=== PATIENT | female | born 1955 | race Caucasian/White ===

== ENCOUNTER 2019-12-27 10:05 | Emergency (ER) | payer OTHER ==
[~2019-12-27] VITALS: Ht 162.6 cm; Wt 68.0 kg
[~2019-12-27 10:05] MED LIST: INSU10SU6 SUBQ; NITR0.4T2 SL
--- NOTE | 2019-12-27 10:05 | NUR ---
Patient BIBA ALS, transferred to bed 8. RN evaluating patient at bedside.
[2019-12-27 10:09] VITALS: BP 180/83
--- NOTE | 2019-12-27 10:15 | NUR ---
BIBA FROM HOME DUE TO HYPOGLYCEMIA, PT WOKE UP AND FAINTED THIS MORNING. TOOK INSULIN LAST NIGHT. HAS NOT HAD BREAKFAST. BS OF 49 AT HOME. PER EMS GLUCOGON GIVEN IM AND IV FLUIDS DEXTROSE. BS 118 IN ER. PT A/OX4, AMBULATORY. PT REPORTS HIT HER OCCIPITAL AREA ON THE HEAD WHEN SHE FELL OFF THE BED THIS MORNING, DENIES LOC. DENIES DIZZINESS, BLURRY VISION, WEAKNESS, ANY PAIN AT THIS TIME.
[2019-12-27] MEDS ORDERED: lisinopriL 20 MG TAB PO ONE (10:35)
[2019-12-27] MEDS ORDERED: ASPIRIN 81 MG TAB.CHEW PO ONE (10:35)
[2019-12-27] MEDS ORDERED: FUROSEMIDE 20 MG TAB PO ONE (10:35)
--- NOTE | 2019-12-27 10:44 | NUR ---
Dr. De La Cruz is evaluating the patient at bedside.
--- NOTE | 2019-12-27 10:50 | NUR ---
FOOD AND JUICE PROVIDED TO PATIENT TO BEDSIDE.
--- NOTE | 2019-12-27 11:09 | NUR ---
Spoke with pt's son Miguelito at [phone]. Will contact him later when patient is discharged from ER.
--- NOTE | 2019-12-27 11:15 | NUR ---
Patient ambulated to the bathroom with steady gait.
[2019-12-27 12:54] VITALS: BP 148/78
--- NOTE | 2019-12-27 12:54 | NUR ---
Patient discharged with v/s stable. Written and verbal after care instructions given and explained. Patient verbalized understanding. Ambulatory with steady gait. All questions addressed prior to discharge. Advised to follow up with PMD.
== END 2019-12-27 12:54 | disposition home or self-care (01) ==
LOC: MED 10:05
DX: E16.0 Drug-induced hypoglycemia without coma (principal); T38.3X5A Adverse effect of insulin and oral hypoglycemic [antidiabetic] drugs, initial encounter; Y92.89 Other specified places as the place of occurrence of the external cause
CPT/HCPCS: 99284

== ENCOUNTER 2020-04-15 09:08 | Emergency (ER) | payer OTHER ==
[~2020-04-15] VITALS: Ht 152.4 cm; Wt 76.7 kg
[2020-04-15 09:08] VITALS: BP 197/97
--- NOTE | 2020-04-15 09:15 | NUR ---
Pt biba from home due to hypoglycemia. Per EMS, reported blood sugar this morning taken by her daughter was 41. EMS arrived and took bs of 31. Glucagon 1mg IM given, which raised bs to 74. In the ER, patient was awake and alert, confused, GCS 14. VSS. ER resting in bed comfortably. ERMD made aware of pt status. hx: DM, HTN, HYPERLIPIDEMIA, CHF
[2020-04-15] MEDS ORDERED: DEXTROSE 10% 250 ML IV SCH (09:25)
--- NOTE | 2020-04-15 09:42 | NUR ---
PT REFUSED OXYGEN VIA NC. O2 SAT= 97%. ERMD MADE AWARE.
[2020-04-15 09:47] LABS: BASOPHILS % (AUTO) 0.2 % (0.0-2.0); EOSINOPHILS # (AUTO) 0.4 K/uL (0-0.4); EOSINOPHILS % (AUTO) 5.5 % (0.0-4.0); HEMATOCRIT 39.7 % (36-48); HEMOGLOBIN 13.1 g/dL (12.0-16.0); LYMPHOCYTES # (AUTO) 1.5 K/uL (2.5-16.5); LYMPHOCYTES % (AUTO) 21.2 % (20.5-51.1); MEAN CORPUSCULAR HEMOGLOBIN 30 pg (27-31); MEAN CORPUSCULAR HGB CONC 33 g/dL (33-37); MEAN CORPUSCULAR VOLUME 91.7 fL (80-94); MONOCYTES # (AUTO) 0.4 K/uL (0.8-1.0); MONOCYTES % (AUTO) 5.9 % (1.7-9.3); NEUTROPHILS # (AUTO) 4.8 K/uL (1.8-7.7); NEUTROPHILS % (AUTO) 67.2 % (42.2-75.2); PLATELET COUNT (AUTO) 218 K/uL (140-450); RED BLOOD CELL COUNT(AUTO) 4.33 MIL/uL (4.20-5.40); WHITE BLOOD COUNT (AUTO) 7.1 K/uL (4.8-10.8)
[2020-04-15 10:04] LABS: ALBUMIN 3.2 g/dL (3.4-5.0); ANION GAP 11.9 (8-16); CARBON DIOXIDE 28.1 mmol/L (21-32); CREATININE 0.7 mg/dL (0.6-1.3); TOTAL BILIRUBIN 0.4 mg/dL (0.0-1.0)
[2020-04-15 10:17] LABS: APPEARANCE,URINE HAZY (CLEAR); BILIRUBIN,URINE NEGATIVE (NEGATIVE); BLOOD, URINE TRACE-I (NEGATIVE); COLOR,URINE YELLOW (YELLOW); LEUKOCYTE ESTERASE ,URINE NEGATIVE (NEGATIVE); NITRITE, URINE POSITIVE (NEGATIVE); UGLUCOSE NEGATIVE (NEGATIVE)
[2020-04-15 10:33] LABS: RBC,URINE 0-5 /HPF (0-5); WBC,URINE 0-5 /HPF (0-5)
[2020-04-15] MEDS ORDERED: cephALEXin 500 MG CAP PO ONE (10:45)
[2020-04-15 11:00] VITALS: BP 159/57
== END 2020-04-15 11:01 | disposition home or self-care (01) ==
LOC: MED 09:08
DX: E16.2 Hypoglycemia, unspecified (principal); R53.83 Other fatigue; N39.0 Urinary tract infection, site not specified; E11.9 Type 2 diabetes mellitus without complications; I10 Essential (primary) hypertension; J45.909 Unspecified asthma, uncomplicated; Z79.899 Other long term (current) drug therapy
CPT/HCPCS: 36415; 71045; 80053; 81001; 84484; 85025; 87086; 93005; 96360; 96365; 99285

== ENCOUNTER 2020-08-02 23:01 | Inpatient (IN) | payer OTHER, SELFPAY ==
[~2020-08-02] VITALS: Ht 152.4 cm; Wt 81.6 kg
[2020-08-02 23:03] VITALS: BP 138/69
--- NOTE | 2020-08-02 23:03 | NUR ---
HERMINIO SCHWARTZ TAKEN TO BED #2
--- NOTE | 2020-08-02 23:05 | NUR ---
PATIENT PRESENTS TO EDM BIBA ALS WIT C/O RIGHT LEGPAIN, LETHARGY AND NEAR SYNCOPE . DENIES N/V/D; SKIN IS PINK/WARM/DRY; AAOX4 APPEARS TIRED; LUNGS CLEAR BL; HR EVEN AND REGULAR; PT DENIES ANY FEVER, CP, SOB, OR COUGH AT THIS TIME. VSS; PATIENT POSITIONED FOR COMFORT; HOB ELEVATED; BEDRAILS UP X2; BED DOWN. DR. VUONG BEDSIDE FOR EXAM
[2020-08-02] MEDS ORDERED: NACL 0.9% 1,000 ML IV ONE (23:25)
[2020-08-02] MEDS ORDERED: ONDANSETRON 4 MG/2 ML VIAL IVP ONE (23:25)
[2020-08-02] MEDS ORDERED: MORPHINE SULFATE 2 MG/ML SYR IVP ONE (23:25)
[2020-08-02 23:58] LABS: BASOPHILS % (AUTO) 0.4 % (0.0-2.0); EOSINOPHILS # (AUTO) 0.1 K/uL (0-0.4); EOSINOPHILS % (AUTO) 1.6 % (0.0-4.0); HEMATOCRIT 36.7 % (36-48); HEMOGLOBIN 12.1 g/dL (12.0-16.0); LYMPHOCYTES # (AUTO) 1.2 K/uL (2.5-16.5); LYMPHOCYTES % (AUTO) 13.1 % (20.5-51.1); MEAN CORPUSCULAR HEMOGLOBIN 30 pg (27-31); MEAN CORPUSCULAR HGB CONC 33 g/dL (33-37); MEAN CORPUSCULAR VOLUME 89.4 fL (80-94); MONOCYTES # (AUTO) 0.7 K/uL (0.8-1.0); MONOCYTES % (AUTO) 7.6 % (1.7-9.3); NEUTROPHILS # (AUTO) 6.9 K/uL (1.8-7.7); NEUTROPHILS % (AUTO) 77.3 % (42.2-75.2); PLATELET COUNT (AUTO) 215 K/uL (140-450); RED BLOOD CELL COUNT(AUTO) 4.11 MIL/uL (4.20-5.40); RED CELL DISTRIBUTION WIDTH 13.7 % (11.6-13.7); WHITE BLOOD COUNT (AUTO) 8.9 K/uL (4.8-10.8)
--- NOTE | 2020-08-02 23:59 | NUR ---
LABS, EKG, ABG DONE. PT IS C/O RIGHT LOWER EXTREMITY PAIN.PT STATES HAS HX OF NEUROPATHY
[2020-08-03 00:16] LABS: C-REACTIVE PROTEIN QUANT 6.5 mg/dL (0.0-0.9)
[2020-08-03 00:20] LABS: FIBRINOGEN 344 mg/dL (200-400)
[2020-08-03 00:21] LABS: ALBUMIN 2.8 g/dL (3.4-5.0); ANION GAP 12.1 (8-16); CARBON DIOXIDE 28.3 mmol/L (21-32); CREATININE 0.8 mg/dL (0.6-1.3); POTASSIUM 3.4 mmol/L (3.5-5.1); TOTAL BILIRUBIN 0.4 mg/dL (0.0-1.0)
[2020-08-03 00:24] LABS: D-DIMER 814 ng/ml (0-400)
[2020-08-03] MEDS ORDERED: MORPHINE SULFATE 2 MG/ML SYR ONE (00:37)
[2020-08-03] MEDS ORDERED: ONDANSETRON 4 MG/2 ML VIAL ONE (00:38)
--- NOTE | 2020-08-03 04:00 | NUR ---
REMAINS UNABLE TO VOID. HAS BEEN DOZING OFF AND ON WITH EYES CLOSED. IS TO BE ADMITTED AWAITING ROOM ASSIGNMENT
[2020-08-03] MEDS ORDERED: POTA8TER12 PO (04:15)
[2020-08-03] MEDS ORDERED: LISI-487 PO (04:15)
[2020-08-03] MEDS ORDERED: PANT40EC PO (04:15)
[2020-08-03] MEDS ORDERED: SIMV20TA1 PO (04:15)
[2020-08-03] MEDS ORDERED: FURO-572 PO (04:15)
[2020-08-03] MEDS ORDERED: METF1000 PO (04:15)
[2020-08-03] MEDS ORDERED: NACL 0.9% 1,000 ML IV SCH (05:05)
--- NOTE | 2020-08-03 05:30 | NUR ---
RECEIVED REPORT FROM ER NURSE MATTHEW. PT ARRIVED VIA GURNEY, AMBULATED TO BED WITH STANDBY ASSIST, HAS PAIN ON BLE, MORE ON RIGHT LEG. ON TELE, AOX3 ON 2L NC. NO S/S RESPIRATORY DISTRESS. IV SITE LAC 18G PATENT INTACT. ORIENTED PT TO ROOM AND HOSPITAL. SAFETY MEASURES IN PLACE. CALL LIGHT WITHIN REACH. WILL CONTINUE TO MONITOR, DX: ACUTE RESP. FAILURE, HYPOXIA, HX: DM, HTN, ASTHMA. VS: TEMP 97.8 HR 72 02 SAT 99% BP 148/69 RR 18, MRSA AND URINE COLLECTED
--- NOTE | 2020-08-03 05:30 | NUR ---
REPORT CALLED TO RENATE GROVE
--- NOTE | 2020-08-03 05:40 | NUR ---
TO 215A VIA [employer], ATTACHED TO TRANSPORT MONITOR Belongings list completed.
--- NOTE | 2020-08-03 07:24 | NUR ---
ENDORSED PT TO DAY RN FOR CONTINUITY OF CARE. PT IS IN STABLE CONDITION
--- NOTE | 2020-08-03 07:25 | NUR ---
PT RECEIVED FROM NIGHT NURSE FOR CONTINUITY OF CARE. PT HAS NO S/S OF DISTRESS. IV ON LEFT FORE ARM IS CLEAR PATENT AND INTACT. CALL LIGHT IS WITHIN REACH. ALL SAFETY MEASURES ARE IN PLACE. WILL CONTINUE TO MONITOR.
[2020-08-03] MEDS: NACL 0.9% 1,000 ML IV SCH (07:30)
[2020-08-03] MEDS ORDERED: POTASSIUM CHLORIDE 10 MEQ TABER PO PRN (07:30)
[2020-08-03] MEDS ORDERED: ONDANSETRON 4 MG/2 ML VIAL IM/IVP PRN (07:30)
[2020-08-03] MEDS ORDERED: ZOLPIDEM 5 MG TAB PO PRN (07:30)
[2020-08-03] MEDS ORDERED: NITROGLYCERIN 0.4 MG TAB SL PRN (07:30)
[2020-08-03] MEDS ORDERED: LORazepam 2 MG/ML VIAL IM/IVP PRN (07:30)
[2020-08-03] MEDS ORDERED: DOCUSATE SODIUM 100 MG GELCAP PO PRN (07:30)
[2020-08-03] MEDS ORDERED: ACETAMINOPHEN 325 MG TAB PO PRN (07:30)
[2020-08-03] MEDS ORDERED: HYDROcodone/APAP 5/325 MG 1 TAB TAB PO PRN (07:30)
[2020-08-03] MEDS ORDERED: INSULIN LISPRO SLIDING SCALE 100 UNITS/ML VIAL SUBQ PRN (07:40)
[2020-08-03 08:00] VITALS: BP 144/66
[2020-08-03 08:13] LABS: BILIRUBIN,URINE NEGATIVE (NEGATIVE); BLOOD, URINE TRACE-I (NEGATIVE); COLOR,URINE YELLOW (YELLOW); LEUKOCYTE ESTERASE ,URINE NEGATIVE (NEGATIVE); UGLUCOSE NEGATIVE (NEGATIVE)
[2020-08-03 08:39] LABS: BARBITURATE, URINE NEGATIVE ng/ml (NEG <=200); BENZODIAZEPINE, URINE NEGATIVE ng/mL (NEG <=200); CANNABINOID, URINE NEGATIVE ng/mL (NEG <=50); COCAINE, URINE NEGATIVE ng/mL (NEG <=300); OPIATE, URINE POSITIVE ng/mL (NEG <=2000); PHENCYCLIDINE SCREEN,URINE NEGATIVE ng/mL (NEG <=25)
--- NOTE | 2020-08-03 08:39 | NUR ---
PATIENT HAS BEEN SCREENED AND CATEGORIZED MODERATE NUTRITION RISK. PATIENT WILL BE SEEN WITHIN 3-5 DAYS OF ADMISSION. 08/05/20 08/07/[address]
[2020-08-03 08:50] LABS: APPEARANCE,URINE SLIGHTLY HAZY (CLEAR); NITRITE, URINE POSITIVE (NEGATIVE)
[2020-08-03 08:51] LABS: RBC,URINE 0-5 /HPF (0-5); WBC,URINE 0-5 /HPF (0-5)
--- NOTE | 2020-08-03 09:00 | NUR ---
MEDICATIONS GIVEN PER MD ORDER. PT EDUCATED AND VERBALIZED UNDERSTANDING. NO S/S OF DISTRESS. CALL LIGHT IS WITHIN REACH. ALL SAFETY MEASURES ARE IN PLACE. WILL CONTINUE TO MONITOR.
[2020-08-03] MEDS: PANTOPRAZOLE 40 MG TABEC PO SCH (09:13)
[2020-08-03] MEDS: FUROSEMIDE 20 MG TAB PO SCH (09:14)
[2020-08-03] MEDS: POTASSIUM CHLORIDE 8 MEQ TABER PO SCH (09:15)
[2020-08-03] MEDS: lisinopriL 20 MG TAB PO SCH (09:17)
[2020-08-03] MEDS: metFORMIN 500 MG TAB PO SCH ×2 (09:20→17:44)
[2020-08-03 09:23] LABS: BASOPHILS # (AUTO) 0.1 K/uL (0.00-0.22); BASOPHILS % (AUTO) 0.7 % (0.0-2.0); EOSINOPHILS % (AUTO) 0.4 % (0.0-4.0); HEMOGLOBIN 12.6 g/dL (12.0-16.0); LYMPHOCYTES # (AUTO) 1.6 K/uL (2.5-16.5); LYMPHOCYTES % (AUTO) 17.3 % (20.5-51.1); MEAN CORPUSCULAR HEMOGLOBIN 30 pg (27-31); MEAN CORPUSCULAR HGB CONC 33 g/dL (33-37); MEAN CORPUSCULAR VOLUME 89.2 fL (80-94); MONOCYTES # (AUTO) 0.8 K/uL (0.8-1.0); MONOCYTES % (AUTO) 8.7 % (1.7-9.3); NEUTROPHILS % (AUTO) 72.9 % (42.2-75.2); PLATELET COUNT (AUTO) 233 K/uL (140-450); RED BLOOD CELL COUNT(AUTO) 4.26 MIL/uL (4.20-5.40); RED CELL DISTRIBUTION WIDTH 13.8 % (11.6-13.7); WHITE BLOOD COUNT (AUTO) 9.5 K/uL (4.8-10.8)
[2020-08-03 09:36] LABS: ANION GAP 10.4 (8-16); CARBON DIOXIDE 32.2 mmol/L (21-32); CREATININE 0.7 mg/dL (0.6-1.3); POTASSIUM 4.6 mmol/L (3.5-5.1)
[2020-08-03 09:47] LABS: CHOL/HDL RATIO 3.1 (1-4.5); MAGNESIUM 1.5 mg/dL (1.8-2.4); PHOSPHORUS 3.4 mg/dL (2.5-4.9); THYROID STIMULATING HORMONE 0.6 uIU/mL (0.34-3.74)
[2020-08-03 09:52] LABS: PROTHROMBIN TIME 10.1 secs (10.8-13.4)
--- NOTE | 2020-08-03 11:30 | NUR ---
BG ASSESSED. INSULIN COVERAGE PROVIDED PER MD ORDER. PT EDUCATED AND TOLERATED WELL. NO S/S OF DISTRESS. CALL LIGHT IS WITHIN REACH. ALL SAFETY MEASURES ARE IN PLACE. WILL CONTINUE TO MONITOR.
--- NOTE | 2020-08-03 11:45 | NUR ---
SOCIAL WORK NOTE: SW WAS UNABLE TO MEET PATIENT AT BEDSIDE. SW CONTACTED PATIENT'S DAUGHTER, IFEOMA MEDRANO [phone] AND LEFT VM. LAURA WILL FOLLOW UP TO [facility] ASSESSMENT. Addendum: 08/03/20 at 1329 by Zackary Eden SS Patient's Orientation Unable To Assess Information Provided By IFEOMA MEDRANO - DAUGHTER Comments SW WAS UNABLE TO MEET PATIENT AT BEDSIDE. LAURA COMPLETED ASSESSMENT WITH PATIENT'S DAUGHTER. Substation Electrician, Realtionship and Phone Number IFEOMA MEMBRENO [phone] Healthcare Power of Radial Drill Press Operator No Does Patient Have a POLST No Identifying Problems No Social Work Triggers Is A Social Work Consult Needed No Mandate Report Filed No Explanation Of Identifying Problems PATIENT IS A 65-YEAR-OLD FEMALE ADMITTED FOR ACUTE RESPIRATORY FAILURE. PATIENT HAS PMHX OF DIABETES AND HYPERTENSION. Admitted From Home Pre-Admission Level Of Functioning Status Independent/Ambulatory Prior Resources/Services Used In Last 12 Months No Prior Resources Used Prior DME No Prior DME Used Dialysis Comments N/A Living Situation Apartment Lives With Family Patient Had Caregiver No Home Support No Caregiver Issues Financial Issues No Known Financial Issue Referral To The Financial Counselor Needed No Factors/Needs No D/C Needs Identified Pt/Rep Participated In Discharge Plan Yes Patient/Family Agress With Discharge Plan Yes Discharge Plan Comments TENTATIVE DISCHARGE PLAN IS FOR PATIENT TO RETURN HOME. DC Plan Status Initiated
[2020-08-03] MEDS: BLOOD GLUCOSE MONITORING 1 DEV DEV FS SCH ×3 (11:56→21:14)
[2020-08-03 12:00] VITALS: BP 113/56
[2020-08-03] MEDS ORDERED: ASPART SUBQ SCH (12:00)
[2020-08-03] MEDS ORDERED: INSULIN ASPART PROTAM SUBQ SCH (12:00)
--- NOTE | 2020-08-03 14:30 | NUR ---
HOURLY ROUNDING PERFORMED. PATIENT RESTING IN BED. ABLE TO MAKE NEEDS KNOWN. VISIBLE RISE AND FALL OF CHEST. NO SIGNS OF DISCOMFORT OR DISTRESS. PATIENT NOW ON RA, SPO2 98%, SAFETY MEASURES IN PLACE. WILL CONTINUE TO MONITOR.
[2020-08-03 16:00] VITALS: BP 94/52
--- NOTE | 2020-08-03 17:00 | NUR ---
MEDICATION GIVEN PER MD ORDER. PT EDUCATED AND STATED UNDERSTANDING. PT TOLERATED WELL AND IS ABLE TO MAKE NEEDS KNOWN. CALL LIGHT IS WITHIN REACH. ALL SAFETY MEASURES ARE IN PLACE. WILL CONTINUE TO MONITOR.
--- NOTE | 2020-08-03 18:13 | NUR ---
PT IS RESTING IN BED COMFORTABLY. STATES SHE HAS A HEADACHE BUT DENIES MEDICATION. CALL LIGHT IS WITHIN REACH. ALL SAFETY MEASURES ARE IN PLACE. WILL CONTINUE TO MONITOR.
--- NOTE | 2020-08-03 19:15 | NUR ---
PT ENDORSED TO MODEL MAKER PLASTIC FOR CONTINUITY OF CARE. PT IS STABLE
--- NOTE | 2020-08-03 19:30 | NUR ---
RECEIVE REPORT FOR CONTINUITY OF CARE, PT IN STABLE CONDITION.
[2020-08-03 20:00] VITALS: BP 92/50
--- NOTE | 2020-08-03 20:00 | NUR ---
PT IN BED ASSISTED WITH REPOSITIONING IN BED. SHE IS AOX4 SHE HAS A LAC 18 GUAGE INTACT AND ASYMPTOMATIC AND RUNNING NORMAL SALINE AT 40LS/HR. V/S FOLLOWS: T 98.5 P 75 R 19 B/P 92/50 02 94%. ALL FALLS PRECAUTIONS IN PLACE.
[2020-08-03] MEDS: INSULIN NPH HUM/REG INSULIN HM 100 UNIT/ML 10 ML VIAL SUBQ SCH (20:51)
[2020-08-03] MEDS: MAG SULF 2000 MG/WATER PREMIX 50 ML IV PRN (20:55)
[2020-08-03] MEDS: MORPHINE SULFATE 2 MG/ML SYR IVP PRN (21:07)
[2020-08-03] MEDS: SIMVASTATIN 20 MG TAB PO SCH (21:11)
--- NOTE | 2020-08-03 21:15 | NUR ---
PT C/O 7/10 PAIN AND WAS GIVEN 1MG MORPHINE. PT WAS GIVEN ORDERED ZOCOR, HEPARIN HUMULIN 70/30 40 UNITS. PT FINGERSTICK IS 172. SNACK GIVEN. MAG RIDER HUNG DUE TO LOW LEVEL OF MAGNESIUM. ALL FALLS PRECAUTIONS IN PLACE.
[2020-08-04] VITALS: BP 100/56
--- NOTE | 2020-08-04 | NUR ---
PT IN BED ASLEEP,SHE HAS A LEFT AC 18 G INTACT AND RUNNING NORMAL SALINE AT 40 MLS/HR. SHE IS ON ROOM AIR WITH RESPIRATIONS EVEN AND UNLABORED. V/S FOLLOWS: T 98.0 P 78 R 18 B/P 100/56 02 96% ON ROOM AIR. ALL ORDERED PRECAUTIONS IN PLACE.
--- NOTE | 2020-08-04 02:00 | NUR ---
ROUNDS DONE, PT IN BED ASLEEP NO S/S OF PAIN OR DISTRESS NOTED.
[2020-08-04 04:00] VITALS: BP 108/46
--- NOTE | 2020-08-04 06:00 | NUR ---
FINGERSTICK IS 44, PT GIVEN OJ AND SANDWICH, WILL RETAKE LATER.
[2020-08-04] MEDS: BLOOD GLUCOSE MONITORING 1 DEV DEV FS SCH ×4 (06:37→21:35)
--- NOTE | 2020-08-04 07:00 | NUR ---
CRITICAL LOW BLOOD SUGAR REPORTED FORM LAB. FINGERSTICK RETAKEN, AND IT WAS 126.
[2020-08-04 07:10] LABS: BASOPHILS % (AUTO) 0.3 % (0.0-2.0); EOSINOPHILS # (AUTO) 0.2 K/uL (0-0.4); EOSINOPHILS % (AUTO) 2.8 % (0.0-4.0); HEMATOCRIT 34.2 % (36-48); HEMOGLOBIN 11.2 g/dL (12.0-16.0); LYMPHOCYTES # (AUTO) 1.5 K/uL (2.5-16.5); LYMPHOCYTES % (AUTO) 17.3 % (20.5-51.1); MEAN CORPUSCULAR HEMOGLOBIN 30 pg (27-31); MEAN CORPUSCULAR HGB CONC 33 g/dL (33-37); MEAN CORPUSCULAR VOLUME 90.4 fL (80-94); MONOCYTES # (AUTO) 0.9 K/uL (0.8-1.0); MONOCYTES % (AUTO) 10.3 % (1.7-9.3); NEUTROPHILS # (AUTO) 6.1 K/uL (1.8-7.7); NEUTROPHILS % (AUTO) 69.3 % (42.2-75.2); PLATELET COUNT (AUTO) 210 K/uL (140-450); RED BLOOD CELL COUNT(AUTO) 3.78 MIL/uL (4.20-5.40); RED CELL DISTRIBUTION WIDTH 14.1 % (11.6-13.7); WHITE BLOOD COUNT (AUTO) 8.8 K/uL (4.8-10.8)
[2020-08-04 07:28] LABS: ANION GAP 9.9 (8-16); CARBON DIOXIDE 27.7 mmol/L (21-32); CREATININE 0.8 mg/dL (0.6-1.3); POTASSIUM 3.6 mmol/L (3.5-5.1)
[2020-08-04] MEDS: NACL 0.9% 1,000 ML IV SCH (07:30)
[2020-08-04 07:31] LABS: PHOSPHORUS 3.9 mg/dL (2.5-4.9)
[2020-08-04 08:00] VITALS: BP 123/58
--- NOTE | 2020-08-04 08:00 | NUR ---
PATIENT AWAKE, ALERT AND ORIENTED X4 , ABLE TO MAKE NEEDS KNOWN. ON ROOM AIR, DENIES SHORTNESS OF BREATH. BLOOD SUGAR 126. BED IN LOWEST POSITION. CALL LIGHT WITHIN EASY REACH.
[2020-08-04] MEDS: PANTOPRAZOLE 40 MG TABEC PO SCH (10:29)
[2020-08-04] MEDS: FUROSEMIDE 20 MG TAB PO SCH (10:30)
[2020-08-04] MEDS: lisinopriL 20 MG TAB PO SCH (10:30)
[2020-08-04] MEDS: POTASSIUM CHLORIDE 8 MEQ TABER PO SCH (10:30)
[2020-08-04] MEDS: metFORMIN 500 MG TAB PO SCH ×2 (10:31→17:24)
[2020-08-04 12:00] VITALS: BP 136/57
[2020-08-04] MEDS: INSULIN LISPRO SLIDING SCALE 100 UNITS/ML VIAL SUBQ PRN (13:10)
[2020-08-04 16:00] VITALS: BP_SYST 116; BP_SYST 145; BP_DIAS 52; BP_DIAS 73
--- NOTE | 2020-08-04 19:25 | NUR ---
PATIENT WAS RECEIVED IN HER BED AWAKE AND COHERENT, ABLE TO SPEAK HER NEEDS, IN ROOM AIR, ABLE TO AMBULATE UNASSISTED BUT UNSTEADY GAIT, ALL EXTREMITIES ARE MODERATE STRENGTH ABLE TO SCOOT UP HERSELF ON BED, NO SYMPTOMS OF DISTRESS, WITH MILD TO MODERATE PAIN BUT TOLERABLE PER PATIENT REPORT. DENIES PAIN MEDICATION AT THIS TIME.
[2020-08-04 20:00] VITALS: BP 141/66
[2020-08-04] MEDS: SIMVASTATIN 20 MG TAB PO SCH (20:55)
--- NOTE | 2020-08-04 21:00 | NUR ---
RN MADE HIS SECOND ROUND, PATIENT ASKED FOR ASSISTANCE TO AMBULATE TO THE BATHROOM TO DO NUMBER 1, REPORTED REGULAR AMOUNT OF PEE, YELLOW CLEAR NO ODOR, DENIES DISCOMFORT ON VOIDING, BS WAS CHECKED AND NOTED AT 139 MG/DL, ROUTINE DOSE OF HUMULIN, 40 UNITS SQ, SOCOR 20 MG, HEPARIN 5000 UNITS SQ AND MORPHINE 1 MG/0.5 ML WAS ADMINISTERED PER ORDERED FOR PAIN OF 7/10 IN HER LEGS.
[2020-08-04] MEDS: MORPHINE SULFATE 2 MG/ML SYR IVP PRN (21:32)
[2020-08-04] MEDS: INSULIN NPH HUM/REG INSULIN HM 100 UNIT/ML 10 ML VIAL SUBQ SCH (21:34)
--- NOTE | 2020-08-04 22:30 | NUR ---
PT WAS GIVEN SNACK WITH ORDERED INSULIN. PT ATE ONLY A FEW BITES AND SAID THAT SHE HAD VOMITED. (ONLY A SMALL BIT ) PT SAID SHE DIDN'T FEEL NAUSEA ANY LONGER , BUT DECLINED ANY OTHER OFFERED SNACK OR JUICES SAYING THAT SHE WILL TAKE THEM LATER. PT ALSO DECLINED ANY ANTINAUSEA MEDICATION. PT WAS GIVEN FRESH GOWN AND LINENS ORTHOSTATIC B/P TAKEN LYING B/P 154/62 SITTING B/P 165/64; STANDING B/P 135/62. PT ABLE TO GET OUT OF BED WITH STAND BY ASSISTANCE. WILL CONTINUE TO ENCOURAGE PO AND CHECK FINGERSTICK FOR BLOOD SUGAR LATER. ALL ORDERED PRECAUTIONS IN PLACE.
--- NOTE | 2020-08-04 23:13 | NUR ---
RN MADE HIS 3RD ROUND WITH HIS PRECEPTOR ANUPAMA, PATIENT HAD N/V, ORTHOSTATIC BP CHECKING WAS DONE WNL.
[2020-08-05] VITALS: BP 103/48
--- NOTE | 2020-08-05 00:58 | NUR ---
RN MADE HIS MIDNIGHT ROUND, PATIENT WAS CALMLY ASLEEP IN HER BED ON SEMI FOWLERS POSITION, NO SIGNS OF DISTRESS, WITH REGULAR RISE AND FALL OF CHEST PATIENT'S NORMAL RESPIRATION.
[2020-08-05] MEDS: DEXTROSE 50% 50 ML SYR IVP PRN (02:58)
--- NOTE | 2020-08-05 03:00 | NUR ---
PT FINGERSTICK CHECK WAS 33, PT WAS GIVEN JUICE WITH SUGAR PUDDING AND DOMINICK CRACKERS. ALSO GIVEN IVP D5/50 FOR LOW SUGAR, WILL RECHECK FINGERSTICK LATER ON.
[2020-08-05 04:00] VITALS: BP 150/75
--- NOTE | 2020-08-05 06:11 | NUR ---
RN MADE ROUND PATIENT WAS AOX4, NO SIGNS OF DISTRESS, MORNING MEDICATION WAS ADMINISTERED, TOLERATED WELL, ORTHOSTATIC BP MONITORING WAS DONE NOTED AND CHARTED.
--- NOTE | 2020-08-05 06:53 | NUR ---
PT FINGERSTICK IS 133, NO HUMALOG COVERAGE NEEDED. LAB DRAWS DONE AT BEDSIDE.
--- NOTE | 2020-08-05 07:10 | NUR ---
RECEIVED REPORT FROM FIELD COURT RESEARCHER NURSE FOR CONTINUATION POC. PATIENT IS IN BED AOX4. ON ROOM AIR. IV SITE IS IN PLACE AND INTACT. NO DISTRESS NOTED. SAFETY MEASURES ARE IN PLACE. CALL LIGHT WITHIN REACH. WILL CONTINUE TO MONITOR NEEDED.
[2020-08-05] MEDS: NACL 0.9% 1,000 ML IV SCH (07:30)
[2020-08-05 07:34] LABS: MAGNESIUM 1.5 mg/dL (1.8-2.4)
[2020-08-05 07:35] LABS: BASOPHILS % (AUTO) 0.3 % (0.0-2.0); EOSINOPHILS # (AUTO) 0.1 K/uL (0-0.4); HEMATOCRIT 34.8 % (36-48); HEMOGLOBIN 11.3 g/dL (12.0-16.0); LYMPHOCYTES # (AUTO) 1.1 K/uL (2.5-16.5); LYMPHOCYTES % (AUTO) 12.7 % (20.5-51.1); MEAN CORPUSCULAR HEMOGLOBIN 30 pg (27-31); MEAN CORPUSCULAR HGB CONC 32 g/dL (33-37); MEAN CORPUSCULAR VOLUME 91.2 fL (80-94); MONOCYTES # (AUTO) 0.7 K/uL (0.8-1.0); MONOCYTES % (AUTO) 8.2 % (1.7-9.3); NEUTROPHILS # (AUTO) 6.4 K/uL (1.8-7.7); NEUTROPHILS % (AUTO) 77.8 % (42.2-75.2); PLATELET COUNT (AUTO) 221 K/uL (140-450); RED BLOOD CELL COUNT(AUTO) 3.81 MIL/uL (4.20-5.40); RED CELL DISTRIBUTION WIDTH 13.5 % (11.6-13.7); WHITE BLOOD COUNT (AUTO) 8.3 K/uL (4.8-10.8)
[2020-08-05 07:40] LABS: ANION GAP 10.8 (8-16); CARBON DIOXIDE 29.4 mmol/L (21-32); CREATININE 0.7 mg/dL (0.6-1.3); POTASSIUM 5.2 mmol/L (3.5-5.1)
[2020-08-05 08:00] VITALS: BP 151/72
[2020-08-05] MEDS: BLOOD GLUCOSE MONITORING 1 DEV DEV FS SCH ×4 (08:25→21:11)
[2020-08-05] MEDS: lisinopriL 20 MG TAB PO SCH (08:27)
[2020-08-05] MEDS: PANTOPRAZOLE 40 MG TABEC PO SCH (08:28)
[2020-08-05] MEDS: metFORMIN 500 MG TAB PO SCH ×2 (08:28→16:55)
[2020-08-05] MEDS: FUROSEMIDE 20 MG TAB PO SCH (08:30)
--- NOTE | 2020-08-05 08:36 | NUR ---
BLOOD SUGAR NOTED 134. PER DR ORDER NO INSULIN GIVEN.
--- NOTE | 2020-08-05 08:37 | NUR ---
SCHEDULED MEDICATIONS GIVEN. PATIENT NOT IN DISTRESS. NS 1000 NOT GIVEN BECAUSE THERE IS STILL PREVIOUS RUNNING.
--- NOTE | 2020-08-05 09:08 | NUR ---
SABIHA BARNES: FAXED ORDER FOR SNF EVAL FOR PT TO [facility]. WILL FOLLOW UP. Addendum: 08/05/20 at 1104 by Sharon Watts CM SABIHA BARNES: PATIENT IS NOT AGREEABLE TO SNF. SHE STATES THAT SHE NEEDS TO GO HOME TO HELP CARE FOR HER CHILDREN. WILL ARRANGE HOME HEALTH FOR PATIENT. Addendum: 08/05/20 at 1134 by Sharon Watts CM SABIHA BARNES: FAXED ORDER FOR HOME HEALTH TO [facility] [phone] WILL FOLLOW UP. Addendum: 08/05/20 at 1328 by Sharon Watts CM SABIHA BARNES: RECEIVED A PHONE CALL FROM SANDRA FROM [facility] SHE STATED THAT PATIENT ALREADY HAS AN OPEN HOME HEALTH ASSIGNED WITH [facility]. Addendum: 08/05/20 at 1330 by Sharon Watts CM SABIHA BARNES: VERIFIED WITH PATIENT THAT SHE ALREADY HAS HOME HEALTH.
[2020-08-05] MEDS: POTASSIUM CHLORIDE 8 MEQ TABER PO SCH (09:10)
--- NOTE | 2020-08-05 09:55 | NUR ---
WOUND CARE EVALUATION NOTE: WOUND ASSESSMENT DONE TO THIS 65 Y/O PT. WHO IS AAX4. PER PT. RIGHT CALF WOUND WITH HX OF VARICOSE VEINS SURGICAL WOUND AND HER NEXT VASCULAR APPOINTMENT WILL BE ON 08/21/2020. RIGHT CALF WOUND 1X1X0.1CM WOUND BED 100% BROWN THIN DRY SLOUGH, BALDEMAR WOUND SKIN INTACT, ERYTHEMA WITH INDURATION. POC DISCUSSED WITH DR. LIN. PANDYA. POC DISCUSSED WITH PT. PT. VERBALIZES UNDERSTANDING. RECOMMENDATIONS: -CLEANSE RIGHT CALF WOUND WITH NS, PAT DRY, APPLY THERAHONEY GEL, COVER WITH DRY DRESSING QD AND PRN IF SOILING. -FOLLOW UP OUT PATIENT VASCULAR APPOINTMENT
--- NOTE | 2020-08-05 11:40 | NUR ---
PATIENT BLOOD SUGAR LEVEL IS 110. NO INSULIN GIVEN PER DR ORDER. WILL CONTINUE TO MONITOR NEEDED.
[2020-08-05 12:00] VITALS: BP 135/59
[2020-08-05] MEDS ORDERED: SODIUM ZIRCONIUM CYCLOSILICATE 10 GM POWD.PACK PO SCH (12:00)
--- NOTE | 2020-08-05 13:00 | NUR ---
SCHEDULED MEDICATIONS GIVEN. CLEANED APPLIED THERAHONEY AND CHANGED DRESSING ON PATIENTS RIGHT CALF. PATIENT NOT IN DISTRESS. WILL CONTINUE TO MONITOR NEEDED.
[2020-08-05] MEDS: THERAHONEY GEL 42.5 GM TP SCH (13:41)
[2020-08-05 16:00] VITALS: BP 142/64
--- NOTE | 2020-08-05 16:30 | NUR ---
PATIENT BLOOD SUGAR IS 190. PER DR ORDER GAVE PATIENT 2 UNITS OF INSULIN. PATIENT NOT IN DISTRESS. ALSO SCHEDULED MEDICATIONS GIVEN.
[2020-08-05] MEDS: INSULIN LISPRO SLIDING SCALE 100 UNITS/ML VIAL SUBQ PRN ×2 (16:53→21:25)
--- NOTE | 2020-08-05 19:20 | NUR ---
RECEIVED BEDSIDE REPORT FROM DAY SHIFT NURSE FOR CONTINUITY OF CARE. PT IS AWAKE AND ALERT. A&OX4. ON RA WITH BREATHING UNLABORED. NO RESPIRATORY DISTRESS NOTED. SR ON TELE MONITORING. PT IS AMBULATORY INDEPENDENTLY. RECEIVED REPORT OF WOUND ON THE RIGHT LOWER EXTREMITY. WILL ASSESS SHORTLY. SKIN IS WARM AND DRY. IV IS IN THE LEFT FOREARM 20 GAUGE RUNNING NS AT 40 ML PER HOUR PER ORDER. PT IS STABLE AT THIS TIME. PLAN OF CARE DISCUSSED.
--- NOTE | 2020-08-05 19:44 | NUR ---
ENDORSED TO CYBER THREAT ANALYST NURSE FOR CONTINUATION OF CARE. PT IS STABLE.
[2020-08-05 20:00] VITALS: BP 160/74
[2020-08-05] MEDS: INSULIN NPH HUM/REG INSULIN HM 100 UNIT/ML 10 ML VIAL SUBQ SCH (21:08)
[2020-08-05] MEDS: MAG SULF 2000 MG/WATER PREMIX 50 ML IV PRN (21:11)
[2020-08-05] MEDS: SIMVASTATIN 20 MG TAB PO SCH (21:11)
--- NOTE | 2020-08-05 21:25 | NUR ---
DID NOT ADMINISTER INSULIN HUMALOG PER ORDER. ORDER STATES DO NOT ADMINISTER HUMALOG INSULIN WITH HUMULIN 70-30 INSULIN AT 2100. BS WAS 181 AND HUMULIN 70-30 WAS GIVEN ORDERED. PT IS STABLE AT THIS TIME.
--- NOTE | 2020-08-05 23:30 | NUR ---
PT IS ASLEEP. CHEST RISE AND FALL IS SYMMETRICAL. BREATHING IS UNLABORED. IV FLUIDS ARE INFUSING AND IV IS PATENT. NO DISTRESS NOTED. WILL CONTINUE TO MONITOR.
[2020-08-06] VITALS: BP 126/64
--- NOTE | 2020-08-06 01:30 | NUR ---
PT IS SLEEPING IN SEMI FOWLERS POSITION. BREATHING IS UNLABORED, ON RA. NO DISTRESS NOTED. BED IN THE LOWEST POSITION. IV FLUIDS ARE INFUSING. PT IS STABLE.
--- NOTE | 2020-08-06 03:30 | NUR ---
PT IS UP TO THE RESTROOM. GAIT IS UNSTEADY. NO COMPLAINT OF PAIN AT THIS TIME. MINIMAL ASSISTANCE WAS NEEDED TO ESCORT PT TO THE RESTROOM. PT VOIDED AND SHE IS NOW BACK IN BED.
[2020-08-06 04:00] VITALS: BP 120/54
--- NOTE | 2020-08-06 04:00 | NUR ---
ASSESSED PT'S WOUND ON THE RIGHT CALF. DRAINAGE AND SOILAGE OF THE DRESSING WAS APPARENT. OPEN WOUND WHERE THERE WAS A PREVIOUS SURGICAL INCISION TO REMOVE VARICOSE VEINS STATED BY PT. SLUDGE AND MINIMAL BLOOD AT SITE OF THE WOUND. WOUND IS 1 CM BY 1 CM AND 0.1 CM IN DEPTH. CLEANSED WITH NS, PATTED DRY, APPLIED THERAHONEY, AND APPLIED NEW BANDAGE. PT TOLERATED DRESSING CHANGE WELL. PICTURE WAS TAKEN PRIOR TO PLACING BANDAGE. PICTURE WAS PLACED IN CHART.
[2020-08-06] MEDS: BLOOD GLUCOSE MONITORING 1 DEV DEV FS SCH ×2 (06:04→12:09)
--- NOTE | 2020-08-06 06:05 | NUR ---
CHECKED PT'S BS AND THE READING WAS 39. PT WAS GIVEN TWO ORANGE JUICES AND JELLO TO EAT. WILL ADMINISTER D50 IV PUSH NOW.
[2020-08-06] MEDS: DEXTROSE 50% 50 ML SYR IVP PRN (06:06)
[2020-08-06] MEDS: NACL 0.9% 1,000 ML IV SCH (06:21)
--- NOTE | 2020-08-06 07:00 | NUR ---
RECHECKED PT'S BS AND THE READING WAS 190. DID NOT COVER PT'S SUGAR LEVEL WITH INSULIN BECAUSE IT WAS PREVIOUSLY LOW, 39. PT IS STABLE NO DISTRESS NOTED.
--- NOTE | 2020-08-06 07:10 | NUR ---
ENDORSED PT TO DAY SHIFT NURSE FOR CONTINUITY OF CARE. PT IS STABLE AT THIS TIME. PLAN OF CARE DISCUSSED.
[2020-08-06 07:12] LABS: CARBON DIOXIDE 29.8 mmol/L (21-32); CREATININE 0.8 mg/dL (0.6-1.3); POTASSIUM 4.8 mmol/L (3.5-5.1)
--- NOTE | 2020-08-06 07:15 | NUR ---
PT RECEIVED FROM NIGHT NURSE FOR CONTINUITY OF CARE. PT IS RESTING IN BED NO S/S OF DISTRESS. IV ON LEFT ARM (20G) IS PATENT DRY AND CLEAN.CALL LIGHT IS WITHIN REACH. ALL SAFETY MEASURES ARE IN PLACE. WILL CONTINUE TO MONITOR.
[2020-08-06 07:19] LABS: MAGNESIUM 1.9 mg/dL (1.8-2.4); PHOSPHORUS 4.1 mg/dL (2.5-4.9)
[2020-08-06 07:36] LABS: BASOPHILS % (AUTO) 0.4 % (0.0-2.0); EOSINOPHILS # (AUTO) 0.1 K/uL (0-0.4); EOSINOPHILS % (AUTO) 1.3 % (0.0-4.0); HEMATOCRIT 33.4 % (36-48); HEMOGLOBIN 10.8 g/dL (12.0-16.0); LYMPHOCYTES # (AUTO) 0.8 K/uL (2.5-16.5); LYMPHOCYTES % (AUTO) 10.5 % (20.5-51.1); MEAN CORPUSCULAR HEMOGLOBIN 30 pg (27-31); MEAN CORPUSCULAR HGB CONC 32 g/dL (33-37); MEAN CORPUSCULAR VOLUME 91.8 fL (80-94); MONOCYTES # (AUTO) 0.5 K/uL (0.8-1.0); MONOCYTES % (AUTO) 7.3 % (1.7-9.3); NEUTROPHILS % (AUTO) 80.5 % (42.2-75.2); PLATELET COUNT (AUTO) 214 K/uL (140-450); RED BLOOD CELL COUNT(AUTO) 3.64 MIL/uL (4.20-5.40); RED CELL DISTRIBUTION WIDTH 13.8 % (11.6-13.7); WHITE BLOOD COUNT (AUTO) 7.5 K/uL (4.8-10.8)
[2020-08-06 08:00] VITALS: BP 103/51
[2020-08-06] MEDS: FUROSEMIDE 20 MG TAB PO SCH (09:00)
[2020-08-06] MEDS: POTASSIUM CHLORIDE 8 MEQ TABER PO SCH (09:00)
[2020-08-06] MEDS: lisinopriL 20 MG TAB PO SCH (09:00)
--- NOTE | 2020-08-06 09:00 | NUR ---
PTS MEDICATION ADMINISTERED PER MD ORDER. PT TOLERATED WELL. NO S/S OF DISTRESS. WILL CONTINUE TO MONITOR
[2020-08-06] MEDS: PANTOPRAZOLE 40 MG TABEC PO SCH (09:09)
[2020-08-06] MEDS: metFORMIN 500 MG TAB PO SCH (09:13)
[2020-08-06] MEDS ORDERED: CEPH250C16 PO (11:12)
--- NOTE | 2020-08-06 11:30 | NUR ---
PTS BLOOD GLUCOSE ASSESSED PER PROTOCOL. INSULIN COVERAGE PROVIDED PER SLIDING SCALE. PT TOLERATED WELL. ALL SAFETY MEASURES ARE IN PLACE.WILL CONTINUE TO MONITOR.
[2020-08-06] MEDS: INSULIN LISPRO SLIDING SCALE 100 UNITS/ML VIAL SUBQ PRN (11:52)
[2020-08-06 12:00] VITALS: BP 127/67
[2020-08-06] MEDS: THERAHONEY GEL 42.5 GM TP SCH (12:09)
--- NOTE | 2020-08-06 12:44 | NUR ---
PTS WOUND CARE WAS PERFORMED PER ORDER. PT TOLERATED WELL. ALL SAFETY MEASURES ARE IN PLACE. WILL CONTINUE TO MONITOR.
--- NOTE | 2020-08-06 13:30 | NUR ---
PT RESTING IN BED. PT IS ABLE TO MAKE NEEDS KNOWN. NO S/S OF DISTRESS. WILL CONTINUE TO MONITOR.
--- NOTE | 2020-08-06 14:39 | NUR ---
08/06/20 RD INITIAL ASSESSMENT COMPLETED PLEASE REFER TO NUTRITION ASSESSMENT UNDER CARE ACTIVITY FOR ESTIMATED NUTRITIONAL NEEDS. 1. CONTINUE CCHO DIET TOLERATED 2. ADD AGATA BID FOR WOUND HEALING 3. RD PROVIDED CONSISTENT CARBOHYDRATE INTAKE EDUCATION 4. RD TO FOLLOW-UP 3-5 DAYS, MODERATE RISK RINA SLOAN, RD
--- NOTE | 2020-08-06 15:00 | NUR ---
PT IS RESTING IN BED. ASSISTED WITH ADLS, PT AWAITS HER RIDE TO GO HOME. TELE WAS TAKEN OFF BY PATIENT AND REFUSES TO HAVE IT ON UNTIL RIDE ARRIVES. NO S/S OF DISTRESS AT THIS TIME. ALL SAFETY MEASURES ARE IN PLACE WILL CONTINUE TO MONITOR.
--- NOTE | 2020-08-06 15:45 | NUR ---
WENT OVER DISCHARGE INSTRUCTIONS WITH PATIENT. PT SIGNED APPROPRIATE DOCUMENTS . INSTRUCTED PT TO VISIT ED FOR ANY SIGNS OF DISTRESS. PT VERBALIZED UNDERSTANDING. PATIENTS VACCINATIONS ARE UP TO DATE. REMOVED INTACT IV CANULA. TELEMETRY BOX RETURNED. ID BAND REMOVED. PATIENT CHANGED INTO HER OWN CLOTHES AND GATHERED ALL OF HER BELONGINGS, SURGICAL MASK PROVIDED. PATIENT WHEELED OUT TO PRIVATE VEHICLE. PT IS STABLE.
== END 2020-08-06 15:37 | disposition home health service (06) | DRG 602 ==
LOC: MED 23:01 → MTU 08-03 05:07
DX: L03.119 Cellulitis of unspecified part of limb (principal); J96.01 Acute respiratory failure with hypoxia; G93.41 Metabolic encephalopathy; N39.0 Urinary tract infection, site not specified; D68.59 Other primary thrombophilia; G90.8 Other disorders of autonomic nervous system; E11.9 Type 2 diabetes mellitus without complications; J45.909 Unspecified asthma, uncomplicated; E78.5 Hyperlipidemia, unspecified; I50.9 Heart failure, unspecified; I11.0 Hypertensive heart disease with heart failure; K21.9 Gastro-esophageal reflux disease without esophagitis; K57.90 Diverticulosis of intestine, part unspecified, without perforation or abscess without bleeding; E87.6 Hypokalemia; K44.9 Diaphragmatic hernia without obstruction or gangrene; K80.20 Calculus of gallbladder without cholecystitis without obstruction; I83.93 Asymptomatic varicose veins of bilateral lower extremities; D64.9 Anemia, unspecified; Z20.822 Contact with and (suspected) exposure to COVID-19
CPT/HCPCS: 36415; 70450; 71045; 71275; 76881; 80048; 80053; 80305; 81001; 82150; 82728; 82948; 83036; 83605; 83615; 83690; 83735; 83880; 84100; 84134; 84436; 84443; 84484; 85025; 85379; 85384; 85610; 85730; 86140; 87040; 87081; 87086; 87804; 93005; 93880; 93925; 93971; 97110; 97116; 97530; 99285; J0696; J1644; J1815; J2270; J2405; J3475; J7030; J7060; Q9967; U0003

== ENCOUNTER 2021-03-28 11:16 | Emergency (ER) | payer OTHER ==
[~2021-03-28] VITALS: Ht 152.4 cm; Wt 76.2 kg
[~2021-03-28 11:16] MED LIST changes: +CEPH250C16 PO; +FURO-572 PO; +LISI-487 PO; +METF1000 PO; +PANT40EC PO; +POTA8TER12 PO; +SIMV20TA1 PO
[2021-03-28 11:31] VITALS: BP 145/80
--- NOTE | 2021-03-28 11:40 | NUR ---
Pt states BG 55 prior to arrival. AccuChek in triage 132
--- NOTE | 2021-03-28 11:42 | NUR ---
Pt ambulated to bed 01 with steady even gait
--- NOTE | 2021-03-28 12:00 | NUR ---
66 YO F. BIB self from home c/o neck pain and headache x 5 days. 5/10, tight/constant, non-radiating pain. States worsens with head movement. Denies trauma, fall, injury. States previous symptoms [address] scan of head negative. Denies blurry vision, nausea, vomiting, diarrhea, constipation, chest pain, SOB. PMH: DM2, HLD, HTN Meds: metformin, ASA, simvastatin NKA
[2021-03-28] MEDS ORDERED: METOCLOPRAMIDE 10 MG TAB PO ONE (12:35)
[2021-03-28] MEDS ORDERED: IBUPROFEN 600 MG TAB PO ONE (12:35)
[2021-03-28] MEDS ORDERED: METO-486 PO (12:36)
[2021-03-28] MEDS ORDERED: IBUP-2213 PO (12:36)
[2021-03-28 12:55] VITALS: BP 145/80
--- NOTE | 2021-03-28 13:00 | NUR ---
Patient discharged with v/s stable. Written and verbal after care instructions given and explained. Patient alert, oriented and verbalized understanding of instructions. Ambulatory with steady gait. All questions addressed prior to discharge. ID band removed. Patient advised to follow up with PMD. Rx of REGLAN AND IBUPROFEN given. Patient educated on indication of medication including possible reaction and side effects. Opportunity to ask questions provided and answered.
== END 2021-03-28 13:00 | disposition home or self-care (01) ==
LOC: MED 11:16
DX: G43.909 Migraine, unspecified, not intractable, without status migrainosus (principal); J45.909 Unspecified asthma, uncomplicated; E11.9 Type 2 diabetes mellitus without complications; I10 Essential (primary) hypertension; Z79.899 Other long term (current) drug therapy; Z79.1 Long term (current) use of non-steroidal anti-inflammatories (NSAID); Z79.2 Long term (current) use of antibiotics; Z79.4 Long term (current) use of insulin
CPT/HCPCS: 99283; J8597

== ENCOUNTER 2021-09-26 10:40 | Inpatient (IN) | payer OTHER ==
[~2021-09-26] VITALS: Ht 152.4 cm; Wt 76.7 kg
[2021-09-26 10:40] VITALS: BP 194/83
[~2021-09-26 10:40] MED LIST changes: +IBUP-2213 PO; +METO-486 PO; +POTA8TAB17 PO; -POTA8TER12 PO
--- NOTE | 2021-09-26 10:40 | NUR ---
PT EFREN DURHAM, VIA GURNEY TO BED 12.
--- NOTE | 2021-09-26 10:41 | NUR ---
Dr. Escudero is evaluating patient at bedside
--- NOTE | 2021-09-26 10:47 | NUR ---
PT AMBULATED TO BATHROOM WITH ASSISTANCE
--- NOTE | 2021-09-26 10:55 | NUR ---
LAB AT BEDSIDE
--- NOTE | 2021-09-26 11:13 | NUR ---
66 Y/O BIBA FROM HOME C/O DECREASED LOC. EMS A/OX2 GCS14, INITIAL BS 46 [id number] 250ML, BS 305, RECHECKED AGAIN 141, AOX4 GCS15 C/O HEADACHE. STATED THAT PT IS NON-COMPLIANT WITH METFORMIN. RECHECKED BS AT BEDSIDE 135, PT IS A/OX4, ABLE TO AMBULATE WITH SOME ASSISTANCE. PMH: HTN, DM2 Meds: metformin, insulin NKDA
--- NOTE | 2021-09-26 11:15 | NUR ---
RAD AT BEDSIDE
[2021-09-26 11:21] LABS: BASOPHILS # (AUTO) 0.1 K/uL (0.00-0.22); BASOPHILS % (AUTO) 0.8 % (0.0-2.0); EOSINOPHILS # (AUTO) 0.3 K/uL (0-0.4); EOSINOPHILS % (AUTO) 3.6 % (0.0-4.0); HEMATOCRIT 37.5 % (36-48); HEMOGLOBIN 12.4 g/dL (12.0-16.0); LYMPHOCYTES # (AUTO) 1.1 K/uL (2.5-16.5); LYMPHOCYTES % (AUTO) 13.1 % (20.5-51.1); MEAN CORPUSCULAR HEMOGLOBIN 30 pg (27-31); MEAN CORPUSCULAR HGB CONC 33 g/dL (33-37); MEAN CORPUSCULAR VOLUME 90.1 fL (80-94); MONOCYTES # (AUTO) 0.6 K/uL (0.8-1.0); MONOCYTES % (AUTO) 7.6 % (1.7-9.3); NEUTROPHILS % (AUTO) 74.9 % (42.2-75.2); PLATELET COUNT (AUTO) 223 K/uL (140-450); RED BLOOD CELL COUNT(AUTO) 4.17 MIL/uL (4.20-5.40); RED CELL DISTRIBUTION WIDTH 14.4 % (11.6-13.7); WHITE BLOOD COUNT (AUTO) 8.1 K/uL (4.8-10.8)
--- NOTE | 2021-09-26 11:29 | NUR ---
MAREK handed to CPT Lyndsay at ER bedside
[2021-09-26 11:37] LABS: ANION GAP 11.1 (8-16); CARBON DIOXIDE 29.8 mmol/L (21-32); CHLORIDE 105 mmol/L (98-107); CREATININE 0.6 mg/dL (0.6-1.3); GFR ARICAN-AMERICAN 128 mL/min (>90); GLUCOSE 101 mg/dL (74-106); LIPASE 191 U/L (73-393); POTASSIUM 3.9 mmol/L (3.5-5.1); SODIUM SERUM 142 mmol/L (136-145); UREA NITROGEN, BLOOD 14 mg/dL (7-18)
--- NOTE | 2021-09-26 11:49 | NUR ---
PT OFFERED A SANDWICH, TOLERATED WELL
[2021-09-26 11:54] LABS: BILIRUBIN,URINE NEGATIVE (NEGATIVE); BLOOD, URINE TRACE-I (NEGATIVE); COLOR,URINE YELLOW (YELLOW); LEUKOCYTE ESTERASE ,URINE 2+ (NEGATIVE); NITRITE, URINE POSITIVE (NEGATIVE); UGLUCOSE TRACE (NEGATIVE)
[2021-09-26 11:54] LABS: ALBUMIN 2.6 g/dL (3.4-5.0); ASPARTATE AMINOTRANSFERASE 31 U/L (15-37)
[2021-09-26 12:19] LABS: TOTAL BILIRUBIN 0.3 mg/dL (0.0-1.0)
[2021-09-26 12:42] LABS: APPEARANCE,URINE HAZY (CLEAR)
[2021-09-26 12:58] LABS: RBC,URINE 0-5 /HPF (0-5); URINE AMORPHOUS URATE 1+ /HPF (None Seen); WBC,URINE 16-25 (MOD) /HPF (0-5)
--- NOTE | 2021-09-26 13:44 | NUR ---
LAB AT BEDSIDE
--- NOTE | 2021-09-26 13:59 | NUR ---
DR ALMANZAR AT BEDSIDE
[2021-09-26] MEDS ORDERED: cefTRIAXone 1,000 MG VIAL ONE (14:02)
[2021-09-26] MEDS ORDERED: NACL 0.9% 2,500 ML IV ONE (14:15)
--- NOTE | 2021-09-26 14:24 | NUR ---
PT STATED THAT SISTER WILL BRING MED LIST, DOES NOT ACCURATELY RECALL MEDICATION
[2021-09-26] MEDS ORDERED: ASPI-1822 PO (15:30)
[2021-09-26] MEDS ORDERED: FLUT0.0560 NS (15:30)
[2021-09-26] MEDS ORDERED: GABA400C PO (15:30)
[2021-09-26] MEDS ORDERED: DEXTROSE 50% 50 ML SYR IVP PRN (15:35)
[2021-09-26] MEDS: BLOOD GLUCOSE MONITORING 1 DEV DEV FS SCH ×2 (16:38→20:12)
--- NOTE | 2021-09-26 17:25 | NUR ---
Patient will be admitted to care of DR JONES. Admited to MED SURG. Will go to [facility]. Belongings list completed. Report to PEYTON DEWITT.
[2021-09-26 17:30] VITALS: BP 150/58
--- NOTE | 2021-09-26 17:30 | NUR ---
PT TRANSFERRED TO [facility] BED 105B VIA WHEELCHAIR. PT AMBULATED TO BED WITH CANE. CANE AT BEDSIDE. NO S/S OF DISTRESS. CALL LIGHT IN REACH. ALL SAFETY MEASURES IN PLACE
--- NOTE | 2021-09-26 19:11 | NUR ---
ENDORSED PT TO CREDIT UNION MANAGER NURSE
--- NOTE | 2021-09-26 19:30 | NUR ---
RECEIVED PT FROM DAY NURSE FOR CONTINUITY OF CARE. PT A&O X 4, ON ROOM AIR, BREATHING EQUAL AND UNLABORED. NO S/SX DISTRESS NOTED. IV ON L HAND G22, SL, FLUSHING WELL. SKIN WARM DRY AND INTACT. COMPLAINS OF HEADACHE. NO OTHER COMPLAINS AT THIS TIME. ALL PRECAUTIONS IN PLACE. CALL LIGHT WITHIN REACH. WILL CONTINUE TO MONITOR.
[2021-09-26] MEDS ORDERED: MORPHINE SULFATE 2 MG/ML SYR IVP PRN (19:50)
[2021-09-26] MEDS ORDERED: HYDROcodone/APAP 5/325 MG 1 TAB TAB PO PRN (19:50)
[2021-09-26 20:00] VITALS: BP 140/55
[2021-09-26] MEDS: ACETAMINOPHEN 325 MG TAB PO PRN (20:12)
--- NOTE | 2021-09-26 20:30 | NUR ---
BLOOD SUGAR WAS CHECKED. IT WAS 204. PT REFUSED INSULIN COVERAGE AT THIS TIME. WILL TRY TO OFFER AGAIN LATER. WILL CONTINUE TO MONITOR.
--- NOTE | 2021-09-26 23:30 | NUR ---
PT ASLEEP. BREATHING EQUAL AND UNLABORED. NO DISTRESS NOTED. CALL LIGHT WITHIN REACH.WILL CONTINUE TO MONITOR.
[2021-09-27 04:00] VITALS: BP 150/65
--- NOTE | 2021-09-27 06:29 | NUR ---
BLOOD SUGAR WAS 113. NO INSULIN COVERAGE NEEDED.
--- NOTE | 2021-09-27 07:10 | NUR ---
RECEIVED REPORT FROM IN CLASS SPECIAL EDUCATION TEACHER NURSE FOR CONTINUITY OF CARE. PT IS RESTING AT THIS TIME. RESPIRATIONS ARE EVEN AND UNLABORED ON ROOM AIR. NO SIGNS OF DISTRESS NOTED. PT IS ALERT AND ORIENTED X4. ABLE TO VERBALIZE NEEDS AND ABLE TO FOLLOW COMMANDS. PT IS ON REGULAR DIET, ABD IS NONTENDER, NONDISTENDED WITH BOWEL SOUNDS PRESENT. PT IS CONTINENT OF BOWEL AND BLADDER. ABLE TO AMBULATE TO REST ROOM WITH ASSISTANCE OF CANE. SKIN IS WARM, DRY, AND INTACT. PT HAS IV TO L HAND, 22G SALINE LOCKED. NO SIGNS OF PAIN OR DISCOMFORT AT THIS TIME. CALL LIGHT WITHIN REACH. ALL SAFETY MEASURES IN PLACE. WILL CONTINUE TO MONITOR.
[2021-09-27 07:24] LABS: BASOPHILS % (AUTO) 0.5 % (0.0-2.0); EOSINOPHILS # (AUTO) 0.4 K/uL (0-0.4); EOSINOPHILS % (AUTO) 5.9 % (0.0-4.0); HEMATOCRIT 34.1 % (36-48); HEMOGLOBIN 11.2 g/dL (12.0-16.0); LYMPHOCYTES # (AUTO) 1.8 K/uL (2.5-16.5); LYMPHOCYTES % (AUTO) 24.4 % (20.5-51.1); MEAN CORPUSCULAR HEMOGLOBIN 30 pg (27-31); MEAN CORPUSCULAR HGB CONC 33 g/dL (33-37); MEAN CORPUSCULAR VOLUME 90.9 fL (80-94); MONOCYTES # (AUTO) 0.6 K/uL (0.8-1.0); MONOCYTES % (AUTO) 8.1 % (1.7-9.3); NEUTROPHILS # (AUTO) 4.5 K/uL (1.8-7.7); NEUTROPHILS % (AUTO) 61.1 % (42.2-75.2); PLATELET COUNT (AUTO) 213 K/uL (140-450); RED BLOOD CELL COUNT(AUTO) 3.76 MIL/uL (4.20-5.40); RED CELL DISTRIBUTION WIDTH 14.4 % (11.6-13.7); WHITE BLOOD COUNT (AUTO) 7.3 K/uL (4.8-10.8)
[2021-09-27 07:31] LABS: ANION GAP 8.4 (8-16); CARBON DIOXIDE 28.4 mmol/L (21-32); CREATININE 0.6 mg/dL (0.6-1.3); POTASSIUM 3.8 mmol/L (3.5-5.1)
[2021-09-27] MEDS: BLOOD GLUCOSE MONITORING 1 DEV DEV FS SCH ×4 (07:34→21:00)
[2021-09-27 08:00] VITALS: BP 148/68
--- NOTE | 2021-09-27 08:37 | NUR ---
PATIENT HAS BEEN SCREENED AND CATEGORIZED HIGH NUTRITION RISK. PATIENT WILL BE SEEN WITHIN 1-2 DAYS OF ADMISSION. / RECEIVED REFERRAL FOR UNCONTROLLED DIABETES MAGAN EPPS RD
[2021-09-27] MEDS ORDERED: INSULIN LISPRO SLIDING SCALE 100 UNITS/ML VIAL SUBQ PRN (09:30)
[2021-09-27] MEDS ORDERED: DEXTROSE 50% 50 ML SYR IVP PRN (09:30)
[2021-09-27] MEDS ORDERED: POTASSIUM CHLORIDE 10 MEQ TABER PO PRN (09:30)
[2021-09-27] MEDS ORDERED: MAG SULF 2000 MG/WATER PREMIX 50 ML IV PRN (09:30)
[2021-09-27] MEDS ORDERED: BLOOD GLUCOSE MONITORING 1 DEV DEV FS SCH (11:30)
--- NOTE | 2021-09-27 11:34 | NUR ---
PT BLOOD GLUCOSE WAS 154. INFORMED PT THAT INSULIN COVERAGE NEEDED. PT REFUSED INSULIN. EDUCATED PT ON NEED/BENEFITS OF INSULIN. PT CONTINUES TO REFUSE. WILL CONTINUE TO MONITOR.
--- NOTE | 2021-09-27 13:53 | NUR ---
09/27/21 RD INITIAL ASSESSMENT COMPLETED PLEASE REFER TO NUTRITION ASSESSMENT UNDER CARE ACTIVITY FOR ESTIMATED NUTRITIONAL NEEDS. 1. CONTINUE CCHO 60 GM DIET TOLERATED 2. RD WILL CONTINUE MONITORING PO INTAKE AND GLUCOSE LEVEL 3. RD TO FOLLOW-UP 3-5 DAYS, MODERATE RISK REVIEWED BY MAGAN [address]
[2021-09-27 16:00] VITALS: BP 155/68
[2021-09-27] MEDS: INSULIN LISPRO SLIDING SCALE 100 UNITS/ML VIAL SUBQ PRN ×2 (16:12→20:59)
--- NOTE | 2021-09-27 16:15 | NUR ---
PT BLOOD GLUCOSE WAS 182. ADMINISTERED 2 UNITS INSULIN PER SLIDING SCALE. WILL CONTINUE TO MONITOR.
--- NOTE | 2021-09-27 16:34 | NUR ---
DC PLANN[age] YRS OLD FEMALE PATIENT WAS ADMITTED FROM HOME WITH A DX OF HYPOGLYCEMIA, UTI. PATIENT HAS A HX OF CHF, DM, CAD HTN, GERD AND HLD. CXR SHOWED LOW LUNG VOLUMES. VENOUS DOPPLER SHOWED NO DVT. RAPID COVID NEGATIVE. ADMINISTERED IVF, IV ABX ROCEPHIN AND CONTINUE HOME MEDS. ORDERED PHYSICAL THERAPY . DC PLAN PER PT'S RECOMMENDATIONS. CM TO FOLLOW Addendum: 09/29/21 at 1541 by Ioana Sandy RN DC PLANNING: IM LETTER SIGNED BY PATIENT. PATIENT AGREED WITH DC ORDER AND PREFERRED TO GO HOME AND CONTINUE WITH [facility]. CM TO FOLLOW
--- NOTE | 2021-09-27 17:57 | NUR ---
P.T. NOTES P.T. EVAL COMPLETED; REFER TO EVAL FOR DETAILS.
--- NOTE | 2021-09-27 19:20 | NUR ---
ENDORSED PT TO SOCIAL SCIENCE INSTRUCTOR NURSE FOR CONTINUITY OF CARE. PT IS STABLE.
--- NOTE | 2021-09-27 19:21 | NUR ---
RECEIVED REPORT FROM AM NURSE FOR CONTINUITY OF CARE. PATIENT IS AAOX4, RESTING COMFORTABLY IN BED, ON ROOM AIR. IV SITE ON THE LEFT HAND SL. NO COMPLAINTS OF PAIN AT THIS TIME. ALL SAFETY PRECAUTIONS ARE IN PLACE. CALL LIGHT WITHIN REACH. WILL CONTINUE TO MONITOR PT.
[2021-09-27] MEDS: GABAPENTIN 100 MG CAP PO SCH (20:41)
[2021-09-27] MEDS: GABAPENTIN 300 MG CAP PO SCH (20:41)
--- NOTE | 2021-09-27 20:41 | NUR ---
SCHEDULED MEDICATIONS ADMINISTERED PER MD ORDERED.
[2021-09-27] MEDS: SIMVASTATIN 20 MG TAB PO SCH (20:42)
[2021-09-27] MEDS ORDERED: GABAPENTIN 100 MG CAP PO SCH (21:00)
[2021-09-27] MEDS ORDERED: metFORMIN 500 MG TAB PO SCH (21:00)
--- NOTE | 2021-09-27 21:00 | NUR ---
BLOOD SUGAR CHECKED WAS 216, HUMALOG INSULIN COVERAGE ADMINISTERED ORDERED PER SLIDING SCALE.
[2021-09-28] VITALS: BP 134/61
--- NOTE | 2021-09-28 03:15 | NUR ---
PATIENT SLEEPING. CHEST RISE AND FALL SYMMETRICALLY. CALL LIGHT WITHIN REACH.
[2021-09-28 04:33] LABS: BARBITURATE, URINE NEGATIVE ng/ml (NEG <=200); BENZODIAZEPINE, URINE NEGATIVE ng/mL (NEG <=200); CANNABINOID, URINE NEGATIVE ng/mL (NEG <=50); COCAINE, URINE NEGATIVE ng/mL (NEG <=300); OPIATE, URINE NEGATIVE ng/mL (NEG <=2000); PHENCYCLIDINE SCREEN,URINE NEGATIVE ng/mL (NEG <=25)
[2021-09-28] MEDS ORDERED: ASPART SUBQ SCH (06:30)
[2021-09-28] MEDS ORDERED: INSULIN ASPART PROTAM SUBQ SCH (06:30)
[2021-09-28] MEDS: BLOOD GLUCOSE MONITORING 1 DEV DEV FS SCH ×4 (06:40→21:15)
--- NOTE | 2021-09-28 06:40 | NUR ---
BLOOD SUGAR WAS 125, NO INSULIN COVERAGE NEEDED.
[2021-09-28 07:03] LABS: BASOPHILS % (AUTO) 0.6 % (0.0-2.0); EOSINOPHILS # (AUTO) 0.5 K/uL (0-0.4); EOSINOPHILS % (AUTO) 7.1 % (0.0-4.0); HEMOGLOBIN 11.2 g/dL (12.0-16.0); LYMPHOCYTES # (AUTO) 1.1 K/uL (2.5-16.5); LYMPHOCYTES % (AUTO) 14.9 % (20.5-51.1); MEAN CORPUSCULAR HEMOGLOBIN 30 pg (27-31); MEAN CORPUSCULAR HGB CONC 33 g/dL (33-37); MEAN CORPUSCULAR VOLUME 90.1 fL (80-94); MONOCYTES # (AUTO) 0.6 K/uL (0.8-1.0); MONOCYTES % (AUTO) 8.8 % (1.7-9.3); NEUTROPHILS # (AUTO) 4.9 K/uL (1.8-7.7); NEUTROPHILS % (AUTO) 68.6 % (42.2-75.2); PLATELET COUNT (AUTO) 213 K/uL (140-450); RED BLOOD CELL COUNT(AUTO) 3.77 MIL/uL (4.20-5.40); RED CELL DISTRIBUTION WIDTH 14.6 % (11.6-13.7); WHITE BLOOD COUNT (AUTO) 7.1 K/uL (4.8-10.8)
[2021-09-28 07:11] LABS: ANION GAP 8.1 (8-16); CARBON DIOXIDE 26.9 mmol/L (21-32); CREATININE 0.7 mg/dL (0.6-1.3)
[2021-09-28 07:25] LABS: MAGNESIUM 1.6 mg/dL (1.8-2.4); PHOSPHORUS 3.9 mg/dL (2.5-4.9)
--- NOTE | 2021-09-28 07:48 | NUR ---
RECEIVE ENDORSEMENT FROM PM SHIFT NURSE W/ PT IN STABLE CONDITION, JOSE ANTONIO HINOJOSA 22G PATENT, SALINE LOCK. WILL CONTINUE TO MONITOR
--- NOTE | 2021-09-28 07:51 | NUR ---
BEDSIDE ENDORSEMENT GIVEN TO AM NURSE FOR CONTINUITY OF CARE. PT IS STABLE.
[2021-09-28 08:00] VITALS: BP 129/58
[2021-09-28] MEDS: lisinopriL 20 MG TAB PO SCH (08:57)
[2021-09-28] MEDS: PANTOPRAZOLE 40 MG TABEC PO SCH (08:57)
[2021-09-28] MEDS: FUROSEMIDE 20 MG TAB PO SCH (08:58)
[2021-09-28] MEDS: ASPIRIN 81 MG TAB.CHEW PO SCH (08:58)
[2021-09-28] MEDS: FLUTICASONE NASAL 50 MCG/ACTUATION 16 GM BTL NS SCH (09:03)
[2021-09-28] MEDS: ACETAMINOPHEN 325 MG TAB PO PRN (09:03)
[2021-09-28] MEDS: INSULIN LISPRO SLIDING SCALE 100 UNITS/ML VIAL SUBQ PRN ×3 (12:07→21:13)
[2021-09-28] MEDS: metFORMIN 500 MG TAB PO SCH (16:45)
--- NOTE | 2021-09-28 17:09 | NUR ---
DC PLANNING PATIENT IS A 66-YEAR-OLD FEMALE ADMITTED ON 09/26/2021 TO THE [facility]/ED DUE LOW BLOOD SUGAR. PATIENT SEEMS TO BE INCOMPLIANT WITH MEDICATIONS, PATIENT WAS FOUND ALTERED WITH SUGAR LEVELS TO BE 46. PATIENT HAS LONG HX. OF DIABETES. LAURA MET WITH PATIENT AT BEDSIDE TO DISCUSS AND GATHER HER COLLATERAL INFORMATION. PATIENT WAS AWAKE AND ALERT DURING THE MEETING WITH LAURA. PATIENT REPORTED LIVING AT HOME WITH HER DAUGHTER IFEOMA MEDRANO IN [facility]. PATIENT STATED THAT SHE IS GETTING ABOUT 68 HRS OF IHSS AND THAT HER DAUGHTER IFEOMA [phone] IS HER IHSS CAREGIVER, EMERGENCY CONTACT AND MEDICAL DECISION MAKER. PATIENT HAS REPORTED HAVING ADVANCE DIRECTIVES,IN PLACE AND DECLINED A.D. INF. PACKET PROVIDED BY LAURA. PATIENT REPORTED NOT HAVING ANY ISSUES GETTING OR TAKING HER MEDICATIONS FROM [facility] NEAR HER HOME. PATIENT STATED HAVING ONLY A CANE HER DME AT HOME AND BEEN ACTIVE AND INDEPENDENT. PATIENT REPORTED GOING TO SEE HER PCP ROGERIO GILBERT AT [place], LAST VISIT WAS ABOUT A MONTHS AGO AND REPORTED THAT HER DAUGHTER USUALLY MAKES HER SCHEDULED APPOINTMENTS AT HIS OFFICE. LAURA INFORMED PATIENT THAT THESE [employer] VESSEL STEWARDESS HAS MADE A FOLLOW UP APPOINTMENT FOR PATIENT ON 10/05/2021 AT 10:00 AM. PATIENT AGREED TO ATTEND TO HER SCHEDULED APPT. AND LAURA PROVIDED PATIENT WITH A A NOTE WITH ALL INFORMATION, DATE, TIME AND ADDRESS FOR HER ALREADY SCHEDULE APOINTMENT. PATIENT STATED THAT HER DAUGHTER OR FAMILY WILL ASSIST WITH TRANSPORTATION BACK HOME WHEN SHE IS READY TO DC FROM [facility]. LAURA WILL FOLLOW UP NEEDED. Addendum: 09/28/21 at 1711 by Anahi Quesada Amended: Links added.
--- NOTE | 2021-09-28 17:20 | NUR ---
DC PLANNING SW CALL [facility] AT SPOKE TO FARHANA TO DISCUSS PATIENT'S STATUS AND NEED TO RESUME HOME HEALTH SERVICES WITH THEIR AGENCY FOR PT. FARHANA CONFIRMED THAT PATIENT IS THEIR CLIENT AND WILL BE RESUMING SERVICES WHEN SHE IS DC FROM [facility]. LAURA INFORMED FARHANA ABOUT PATIENT'S UPDATED CLINICAL PACKET BEEN SEND VIA FAX TO [facility] AT WITH COMPLETED CONFIRMATION AT ABOUT 17:26.
[2021-09-28 18:00] VITALS: BP 108/58
--- NOTE | 2021-09-28 18:34 | NUR ---
2OOOMG MAGNESIUM GIVEN D/T PATIENT'S MG=1.6 PER PROTOCOL. PATIENT TOLERATE WELL. VITAL T-P-R: 97.2-86-18, BP: 142/86 O2 SAT: 96% IN RA
--- NOTE | 2021-09-28 19:35 | NUR ---
RECEIVED PATIENT FROM AM NURSE FOR CONTINUITY OF CARE.PT IS STABLE
--- NOTE | 2021-09-28 19:38 | NUR ---
ENDORSE PT TO PM SHIFT NURSE W/ STABLE CONDITION, PIV L.HAND 22G PATENT, SALINE LOCK
[2021-09-28] MEDS: GABAPENTIN 100 MG CAP PO SCH (21:06)
[2021-09-28] MEDS: GABAPENTIN 300 MG CAP PO SCH (21:06)
[2021-09-28] MEDS: SIMVASTATIN 20 MG TAB PO SCH (21:12)
--- NOTE | 2021-09-28 21:30 | NUR ---
ALL MEDICATIONS GIVEN ,TOLERATED WELL,BREATHING EVEN AND UNLABORED,ALL SAFETY MEASURES IN PLACE.
[2021-09-29] VITALS: BP 117/66
--- NOTE | 2021-09-29 | NUR ---
PATIENT ASLEEP, RESPIRATIONS EVEN AND UNLABORED,NO DISTRESS NOTED.
--- NOTE | 2021-09-29 02:29 | NUR ---
PATIENT ASLEEP,REATHING EVEN AND UNLABORED,CALL LUIGHT WITHIN EASY REACH
--- NOTE | 2021-09-29 06:00 | NUR ---
CLEANED THE PATIENT,NO PAIN OR SOB NOTED.
[2021-09-29] MEDS: BLOOD GLUCOSE MONITORING 1 DEV DEV FS SCH ×2 (06:42→11:30)
[2021-09-29 07:07] LABS: BASOPHILS % (AUTO) 0.5 % (0.0-2.0); EOSINOPHILS # (AUTO) 0.5 K/uL (0-0.4); HEMATOCRIT 33.7 % (36-48); LYMPHOCYTES # (AUTO) 1.6 K/uL (2.5-16.5); LYMPHOCYTES % (AUTO) 21.4 % (20.5-51.1); MEAN CORPUSCULAR HEMOGLOBIN 29 pg (27-31); MEAN CORPUSCULAR HGB CONC 33 g/dL (33-37); MEAN CORPUSCULAR VOLUME 90.4 fL (80-94); MONOCYTES # (AUTO) 0.6 K/uL (0.8-1.0); MONOCYTES % (AUTO) 8.1 % (1.7-9.3); NEUTROPHILS # (AUTO) 4.8 K/uL (1.8-7.7); PLATELET COUNT (AUTO) 212 K/uL (140-450); RED BLOOD CELL COUNT(AUTO) 3.73 MIL/uL (4.20-5.40); RED CELL DISTRIBUTION WIDTH 14.5 % (11.6-13.7); WHITE BLOOD COUNT (AUTO) 7.6 K/uL (4.8-10.8)
[2021-09-29 07:30] LABS: ANION GAP 8.4 (8-16); CARBON DIOXIDE 26.8 mmol/L (21-32); CREATININE 0.7 mg/dL (0.6-1.3); POTASSIUM 4.2 mmol/L (3.5-5.1)
[2021-09-29 07:37] LABS: MAGNESIUM 1.8 mg/dL (1.8-2.4)
--- NOTE | 2021-09-29 07:39 | NUR ---
ENDORSED PT TO AM NURSE FOR CONTINUITY OF CARE,PT IS STABLE
[2021-09-29 08:00] VITALS: BP 139/70
--- NOTE | 2021-09-29 08:00 | NUR ---
RECEIVED THE REPORT FROM NIGHT NURSE PT ALERT IN BED
[2021-09-29] MEDS: metFORMIN 500 MG TAB PO SCH (08:02)
[2021-09-29] MEDS: lisinopriL 20 MG TAB PO SCH (08:39)
[2021-09-29] MEDS: FUROSEMIDE 20 MG TAB PO SCH (08:39)
[2021-09-29] MEDS: PANTOPRAZOLE 40 MG TABEC PO SCH (08:40)
[2021-09-29] MEDS: ASPIRIN 81 MG TAB.CHEW PO SCH (08:42)
[2021-09-29] MEDS: FLUTICASONE NASAL 50 MCG/ACTUATION 16 GM BTL NS SCH (09:39)
[2021-09-29] MEDS: INSULIN LISPRO SLIDING SCALE 100 UNITS/ML VIAL SUBQ PRN (12:38)
[2021-09-29 12:53] VITALS: BP 139/70
--- NOTE | 2021-09-29 14:56 | NUR ---
PATIENT DISCHARGED HOME, IV HL REMOVED , HOME MED GIVEN FROM PHARMACY, PT REFUSED TO REMOVE THE ID BAND, EXPLAINED THE RISK OF LOOSING AND SOMEBODY CAN ACCESSES HER RECORDED, PT UNDERSTOOD, PT WALKED WITH THE NURSE OUT TO HER CAR. [id number]
[2021-09-29] MEDS ORDERED: NITR50CA1 PO (15:20)
--- NOTE | 2021-09-30 10:12 | NUR ---
PHYSICAL THERAPY CO-SIGN The Physical Therapy Progress Notes documented by Casing In Line Setter have been reviewed. Reviewed/Co-Signed by: Nohemy Mcarthur Documentation Done by: TOD FISHER PTA Addendum: 09/30/21 at 1013 by Nohemy Mcarthur PT Amended: Links added.
--- NOTE | 2021-09-30 10:12 | NUR ---
PHYSICAL THERAPY CO-SIGN The Physical Therapy Progress Notes documented by Photographic Platemaker have been reviewed. Reviewed/Co-Signed by: Nohemy Mcarthur Documentation Done by: TOD FISHER PTA Addendum: 09/30/21 at 1013 by Nohemy Mcarthur PT Amended: Links added.
== END 2021-09-29 15:51 | disposition home health service (06) | DRG 637 ==
LOC: MED 10:40 → MTU 14:08
DX: E11.649 Type 2 diabetes mellitus with hypoglycemia without coma (principal); G93.41 Metabolic encephalopathy; N39.0 Urinary tract infection, site not specified; I25.10 Atherosclerotic heart disease of native coronary artery without angina pectoris; B96.20 Unspecified Escherichia coli [E. coli] as the cause of diseases classified elsewhere; I11.0 Hypertensive heart disease with heart failure; I50.9 Heart failure, unspecified; K21.9 Gastro-esophageal reflux disease without esophagitis; E78.5 Hyperlipidemia, unspecified; Z20.822 Contact with and (suspected) exposure to COVID-19; D64.9 Anemia, unspecified; J45.909 Unspecified asthma, uncomplicated; M54.9 Dorsalgia, unspecified; E11.40 Type 2 diabetes mellitus with diabetic neuropathy, unspecified; Z79.899 Other long term (current) drug therapy; Z90.49 Acquired absence of other specified parts of digestive tract; Z98.891 History of uterine scar from previous surgery
CPT/HCPCS: 36415; 71045; 80048; 80053; 80305; 81001; 82948; 83036; 83605; 83690; 83735; 84100; 84484; 85025; 87040; 87081; 87086; 93005; 93925; 93970; 96361; 96365; 97110; 97112; 97116; 97530; 99285; J0696; J1815; J3475; J7030; J7060; Q0092

== ENCOUNTER 2022-09-22 02:05 | Inpatient (IN) | payer MEDICARE, OTHER ==
[~2022-09-22] VITALS: Ht 152.4 cm; Wt 68.0 kg
[~2022-09-22 02:05] MED LIST changes: +ASPI-1822 PO; -CEPH250C16 PO; +FLUT0.0560 NS; +GABA400C PO; +METF-1274 PO; -METF1000 PO; +NITR50CA1 PO; +SIMV-372 PO; -SIMV20TA1 PO
[2022-09-22 02:09] VITALS: BP 130/81
--- NOTE | 2022-09-22 02:09 | NUR ---
PT TO BED 12
[2022-09-22] MEDS ORDERED: ACETAMINOPHEN EXTRA STRENGTH 500 MG TAB PO ONE (02:10)
[2022-09-22] MEDS ORDERED: ONDANSETRON 4 MG/2 ML VIAL IVP ONE ×2 (02:10→08:00)
[2022-09-22] MEDS ORDERED: NACL 0.9% 500 ML IV ONE (02:10)
[2022-09-22 02:33] LABS: BASOPHILS # (AUTO) 0.1 K/uL (0.00-0.22); BASOPHILS % (AUTO) 0.2 % (0.0-2.0); EOSINOPHILS # (AUTO) 2.2 K/uL (0-0.4); EOSINOPHILS % (AUTO) 9.9 % (0.0-4.0); HEMATOCRIT 31.4 % (36-48); LYMPHOCYTES # (AUTO) 2.6 K/uL (2.5-16.5); LYMPHOCYTES % (AUTO) 11.6 % (20.5-51.1); MEAN CORPUSCULAR HEMOGLOBIN 28 pg (27-31); MEAN CORPUSCULAR HGB CONC 32 g/dL (33-37); MEAN CORPUSCULAR VOLUME 87.1 fL (80-94); MONOCYTES # (AUTO) 0.4 K/uL (0.8-1.0); NEUTROPHILS # (AUTO) 17.3 K/uL (1.8-7.7); NEUTROPHILS % (AUTO) 76.3 % (42.2-75.2); PLATELET COUNT (AUTO) 381 K/uL (140-450); RED CELL DISTRIBUTION WIDTH 14.8 % (11.6-13.7); WHITE BLOOD COUNT (AUTO) 22.7 K/uL (4.8-10.8)
[2022-09-22 03:48] LABS: ANION GAP 12.7 (8-16); CARBON DIOXIDE 27.3 mmol/L (21-32); CREATININE 2.5 mg/dL (0.6-1.3); TOTAL BILIRUBIN 0.6 mg/dL (0.0-1.0)
[2022-09-22 03:53] LABS: LIPASE 93 U/L (73-393)
[2022-09-22 04:11] LABS: APPEARANCE,URINE CLEAR (CLEAR); BILIRUBIN,URINE NEGATIVE (NEGATIVE); BLOOD, URINE NEGATIVE (NEGATIVE); COLOR,URINE YELLOW (YELLOW); LEUKOCYTE ESTERASE ,URINE NEGATIVE (NEGATIVE); NITRITE, URINE NEGATIVE (NEGATIVE); UGLUCOSE NEGATIVE (NEGATIVE)
[2022-09-22] MEDS ORDERED: metroNIDAZOLE 500 MG/NS PREMIX 100 ML IV ONE (05:30)
[2022-09-22] MEDS ORDERED: cefTRIAXone 1,000 MG VIAL ONE (05:43)
[2022-09-22] MEDS ORDERED: NACL 0.9% 1,000 ML IV ONE ×2 (06:05→07:55)
[2022-09-22] MEDS ORDERED: POTASSIUM CHLORIDE 10 MEQ TABER PO PRN (07:50)
[2022-09-22] MEDS ORDERED: LORazepam 2 MG/ML VIAL IVP PRN (07:50)
[2022-09-22] MEDS ORDERED: DOCUSATE SODIUM 100 MG GELCAP PO PRN (07:50)
[2022-09-22] MEDS ORDERED: MORPHINE SULFATE 2 MG/ML SYR IVP PRN (07:50)
[2022-09-22] MEDS ORDERED: ZOLPIDEM 10 MG TAB PO PRN (07:50)
[2022-09-22] MEDS ORDERED: ONDANSETRON 4 MG/2 ML VIAL IVP PRN (07:50)
[2022-09-22] MEDS ORDERED: ACETAMINOPHEN 325 MG TAB PO PRN (07:50)
[2022-09-22] MEDS ORDERED: DEXTROSE 50% 50 ML SYR IVP PRN (07:55)
[2022-09-22] MEDS ORDERED: MORPHINE SULFATE 4 MG/ML SYR IM ONE (08:00)
[2022-09-22 08:25] VITALS: BP 107/51
--- NOTE | 2022-09-22 08:25 | NUR ---
Patient will be admitted to care of DR DIANE. Admited to TELE. Will go to room 121A. Belongings list completed. Report to MIESHA ARGUELLO.
--- NOTE | 2022-09-22 08:25 | NUR ---
RECEIVED PT FROM ER. TRANSPORTED VIA GURNEY. PLACED IN BED COMFORTABLY. ALERT AND ORIENTED X4. RESP. EVEN AND UNLABORED. SKIN INTACT. AMBULATORY. CONTINENT TO BOWEL AND BLADDER. IV SITE ON LFA 20G. NO C/O PAIN OR DISCOMFORT. MRSA SWAB DONE. REMAINS STABLE.
--- NOTE | 2022-09-22 08:56 | NUR ---
PATIENT HAS BEEN SCREENED AND CATEGORIZED LOW NUTRITION RISK. PATIENT WILL BE SEEN WITHIN 7 DAYS OF ADMISSION. 09/22/22-09/29/[address] BY MAGAN EPPS [address]
--- NOTE | 2022-09-22 10:36 | NUR ---
ZOFRAN IVP ONCE GIVEN BY ARMAND DEWITT. TOLERATED WELL.
[2022-09-22] MEDS: BLOOD GLUCOSE MONITORING 1 DEV DEV FS SCH ×3 (11:53→21:20)
--- NOTE | 2022-09-22 11:53 | NUR ---
BS CHECKED 122. NO COVERAGE NEEDED.
[2022-09-22 12:00] VITALS: BP 112/53
[2022-09-22] MEDS: metroNIDAZOLE 500 MG/NS PREMIX 100 ML IV SCH ×2 (13:14→21:33)
--- NOTE | 2022-09-22 13:14 | NUR ---
IV ANTIBIOTIC FLAGYL WAS GIVEN BY ARMAND DEWITT. TOLERATED WELL.
--- NOTE | 2022-09-22 14:06 | NUR ---
PT OFF UNIT FOR HIDA SCAN, TRAVELING PLANT OPERATOR BY JEFF.
--- NOTE | 2022-09-22 15:19 | NUR ---
PRN MORPHINE IVP WAS GIVEN BY WILLIAM RN DURING HIDA SCAN. TOLERATED WELL.
--- NOTE | 2022-09-22 15:49 | NUR ---
PT RETURN FROM HIDA SCAN. PER WHEELCHAIR. REMAINS STABLE.
[2022-09-22 16:00] VITALS: BP 103/75
--- NOTE | 2022-09-22 16:00 | NUR ---
ATTEMPTED TO COLLECT URINE, PER PT SHE IS ALREADY WET.
--- NOTE | 2022-09-22 16:21 | NUR ---
SUHAIL CH REPORTED TO DR. NUÑEZ, PER PT NEEDS TO BE TRANSFERRED HIGHER LEVEL OF CARE TO [facility] FOR SURGERY D/T CARDIAC RISK. PT REMAINS NPO.
--- NOTE | 2022-09-22 17:06 | NUR ---
BS CHECKED 72. NO COVERAGE NEEDED.
[2022-09-22 17:12] LABS: ANION GAP 15.6 (8-16); CARBON DIOXIDE 27.1 mmol/L (21-32); CREATININE 2.4 mg/dL (0.6-1.3); POTASSIUM 4.7 mmol/L (3.5-5.1)
--- NOTE | 2022-09-22 17:28 | NUR ---
DC PLANNING: PER DR NUÑEZ TO TRANSFER TO [facility] FOR HIGHER LEVEL OF CARE FOR [address] WITH HIGH RISK FOR CARDIAC. FAXED ALL PAPER WORK TO [facility]. ARRANGED TRANSPORT WITH [facility] PLACE IT WILL CALL. NOTIFIED HOUSE SUP TO FOLLOW UP Addendum: 09/23/22 at 0905 by Zulema Grande CM MADE A FOLLOW UP CALL TO [facility] AT [phone], ABLE TO SPEAK TO EBONY. PER EBONY, SHE WILL CALL THIS CM BACK FOR UPDATES DUE TO SHE IS WITH ANOTHER CALL. WILL FOLLOW UP. Addendum: 09/23/22 at 1122 by Zulema Grande CM LATE ENTRY FOR 0910: THIS CM WAS INFORMED BY GUEST SERVICES AMBASSADOR JUANA THAT PATIENT'S INSURANCE IS [employer] BUT STILL NEED TO CONFIRM [employer] [employer]. PER SEBASTIAN, SHE WILL UPDATE THE FACESHEET. Addendum: 09/23/22 at 1210 by Zulema Grande CM 1010: PER GUEST SERVICES AMBASSADOR JUANA, PATIENT'S IPA IS [employer] AND FACESHEET WAS SENT TO IPA. CONTACTED LIOR KLEIN OF [facility] [phone] AND UPDATED REGARDING INSURANCE CHANGES. INFORMED LATOYA THAT UPDATED FACESHEET SENT. LATOYA REQUESTED TO TRANSFER SERVICES TO [facility] AND NOT TO TRANSFER PATIENT TO [facility] INSTEAD TO [place] OR [place]. LIOR KLEIN ALSO STATED THAT [facility] DOES NOT HAVE ANY BEDS AT THIS TIME. INFORMED LATOYA THAT I WILL UPDATE DR. NUÑEZ. DR. DIANE INFORMED AND OK TRANSFERRING SERVICES TO EZIO VO MD FOR [facility]. DR. VELAZQUEZ MADE AWARE. THIS CM ALSO INFORMED DR. VELAZQUEZ THE DISCUSSION I HAD WITH LIOR KLEIN OF [facility]. PER , TO INFORM DR. NUÑEZ. LEFT A MESSAGE TO DR NUÑEZ [phone]. WILL FOLLOW UP. 1123: RECEIVED A CALL BACK FROM DR NUÑEZ, STATING THAT OK TO TRANSFER PATIENT TO [place], BUT DOES NOT GO THERE. DR. VELAZQUEZ INFORMED. LIOR KLEIN OF [facility] INFORMED. ATTEMPTED TO MEET WITH THE PATIENT AT THE BEDSIDE, HOWEVER, PATIENT IS GETTING READY TO GO TO THE RESTROOM AND ADVISED THIS CM TO COME BACK. 1127: SPOKE TO BHAVIK LOGANOYSTER FARMER [phone] AT [facility]. PER OYSTER FARMER TO FAX CLINICALS TO [phone]. CLINICALS FAXED. WILL FOLLOW UP. Addendum: 09/23/22 at 1353 by Zulema Grande SHANI LUJAN [facility] BED CONTROL [phone], THEY DO NOT HAVE BEDS AT THIS TIME. Addendum: 09/23/22 at 1426 by Zulema Grande 1350: RECEIVED A CALL FROM THE UNIT,THAT FAMILY IS REQUESTING TO SPEAK TO CASE MANAGEMENT. MET WITH THE PATIENT AND HER DAUGHTER AT THE BEDSIDE PROVIDING UPDATES THAT [facility] IS NOT AUTHORIZING TRANSFER TO [facility] AND WILL AUTHORIZE [facility] AND [place]. HOWEVER, [facility] DOES NOT HAVE BEDS AT THIS TIME AND IS UNDER REVIEW AT [place]. PATIENT AND HER DAUGHTER REFUSED TO TRANSFER TO [place] AND ONLY WANTED [facility] OR [place]. REMINDED PATIENT AND HER DAUGHTER THAT [facility] DOES NOT HAVE BEDS AT THIS TIME. RISK AND BENEFITS DISCUSSED. PATIENT STATED THAT SHE WILL THINK IT OVER AND WILL GET BACK TO US ONCE DECISION HAVE BEEN MADE. WILL FOLLOW UP. LIOR KLEIN OF [facility] UPDATED. THIS CM ASKED IF THERE ARE ANY HOSPITALS THAT WE CAN REFER THE PATIENT. LIOR KLEIN STATED [facility]. PER LIOR KLEIN, HE IS SURE THAT THEY DO NOT HAVE BEDS WELL. PER SOBEIDA OF [facility] [phone], NO BEDS AT THIS TIME AND TO FOLLOW UP AGAIN IN AM. WILL FOLLOW UP. Addendum: 09/23/22 at 1614 by Zulema Grande CM MET WITH THE PATIENT AT THE BEDSIDE TO FOLLOW UP IF SHE MADE A DECISION ALREADY. SHE STATED THAT IF THE SURGEON AT [place] IS ABLE TO SURGERY, SHE MIGHT CONSIDER. Addendum: 09/23/22 at 1702 by Zulema Grande CM CONTACTED [facility] OYSTER FARMER, ANSWERED BY SUGEY. PER SUGEY, DR. BETTE FULTON IS SCHOOL LIBRARY MEDIA PROGRAM DIRECTOR THIS WEEKEND. SHE STATED SHE WILL CALL US BACK DUE TO THEY HAVE A RAPID RESPONSE THAT THEY HAVE TO GO TO. DR. VELAZQUEZ INFORMED. PER DR. VELAZQUEZ, DR. BETTE FULTON WILL ACCEPT THE PATIENT. ABLE TO SPEAK TO BHAVIK PETERSON OYSTER FARMER, THEY ARE SHORT STAFF TONIGHT TO FOLLOW UP IN AM. ENDORSED TO OYSTER FARMER PER [facility] RANDY KLEIN FOR [facility]BAR[facility] [id number] AND MELQUIADES [phone]. Addendum: 09/26/22 at 1724 by YOLANDA BUSTOS CM DC PLANNING CALLED LATOYA AT [facility] TO GET AN UPDATE REGARDING BED AVAILABILITY.NO ACCEPTING SURGEON YET.[place] DC PLANNING -ADDENDUM PRINT DESIGNER ,CHARGE NURSE ARA AND DAUGHTER TRINO INFORMED OF STATUS FOR TRANSFER.DAUGHTER AND PATIENT DECIDED TO STAY AND WILL DECIDE IN AM IF THERE WILL STILL BE NO BED AND SURGEON TO ACCEPT PATIENT.CM TO FOLLOW. Addendum: 09/28/22 at 0852 by YOLANDA BUSTOS CM DC PLANNING LATE ENTRY CALLED YOANDY MCKAY AT [facility] 09/27/22 TO GET AN UPDATE FOR PATIENT'S TRANSFER AT [facility].NO ACCEPTING SURGEON YET.PATIENT WILL STAY AT [facility] AND WILL HAVE CHOLECYSTECTOMY TUBE PLACEMENT BY RADIOLOGIST TODAY.SPOKE WITH DAUGHTER IFEOMA AND GRANDDAUGHTER CHIQUITA 09/26 WHO BOTH AGREED WITH THE SCHEDULED PROCEDURE INCLUDING THE PATIENT.CARDIO AND NEPRO FOLLOWING.CM TO FOLLOW. Addendum: 09/28/22 at 1556 by YOLANDA BUSTOS CM DC PLANNING -LATE ENTRY S/P CHOLECYSTECTOMY TUBE PLACEMENT.PATIENT IS AWAKE ,ALERT AND ORIENTED X3.COMPLAINING OF PAIN. NURSE ARA INFORMED.PATIENT HAS A DISCHARGE ORDER BUT TO DISCUSS THE RESULT OF CT ABDOMEN/PELVIS FIRST .NEEDS AN ONCOLOGY CX FOR GALLBLADDER MASS WITH INVASION OF LIVER AND HEPATIC METS SUGGESTIVE OF NEOPLASM.CM TO FOLLOW. Addendum: 09/30/22 at 1233 by YOLANDA BUSTOS CM DC PLANNING PATIENT IS FOR TRANSFER TO HIGHER LEVEL OF CARE FOR COMPLEXITY OF THE CASE PER .PATIENT HAS GALLBLADDERS MASS WITH INVASION TO THE LIVER.CLINICALS FAXED TO [facility] ,YOANDY GUNDERSON AND LATOYA THE CM FOR [facility] SAID THEY ARE NOT A TERTIARY HOSPITAL.WILL TALK TO PATIENT AND FAMILY REGARDING THE TRANSFER.CM TO FOLLOW. Addendum: 09/30/22 at 1616 by YOLANDA BUSTOS CM DC PLANNING [facility] ACCEPTED PATIENT.LIOR KLEIN AT [facility] NOTIFIED BY [facility] TRANSFER [facility] AT [facility] BUT LATOYA SAID AUTHORIZATION WILL BE GIVEN AT THE END OF THE DAY (BEFORE 5PM). GOT A CALL FROM . PATIENT WILL GO TO [facility]. DR DANIEL THE ACCEPTING SURGEON.CM TO FOLLOW FOR AUTH FOR TRANSFER AND EMS AMBULANCE.WILL PUT PATIENT ON A WILL CALL LIST FOR EMS TRANSPORT. Addendum: 09/30/22 at 1630 by YOLANDA BUSTOS CM DC PLANNING LATE ENTRY AFTER HOUR PHONE NUMBER FOR AUTH FOR TRANSFER AND HOSPITAL TRANSPORT . Addendum: 09/30/22 at 1647 by YOLANDA BUSTOS CM DC PLANNING-LATE ENTRY [facility] AUTH- [id number].[facility] AUTH- [id number].OYSTER FARMER TO CALL FOR BED AVAILABILITY AT [facility] .
--- NOTE | 2022-09-22 17:50 | NUR ---
RECEIVED CALLED FROM PT DAUGHTER TRINO. ALL QUESTIONS ANSWERED. PER TRINO, SHE WILL BE NOTIFIED IF PT WILL BE TRANSFERRED TO [facility]. TRINO PHONE #. [phone].
--- NOTE | 2022-09-22 18:10 | NUR ---
REATTEMPTED TO COLLECT URINE, PER PT COME BACK IN 30 MINS.
--- NOTE | 2022-09-22 19:25 | NUR ---
REPORT GIVEN TO NIGHT NURSE IVANNA FOR CONTINUITY OF CARE. ENDORSED TO IVANNA, PT WILL BE TRANSFERRED TO [facility] FOR SURGERY WITH DR. NUÑEZ. [employer] MOBILITY ARCHITECT TO FOLLOW UP. [facility] FOR TRANSPORTATION. UNABLE TO COLLECT URINE. REMAINS STABLE.
--- NOTE | 2022-09-22 19:26 | NUR ---
RECEIVED ENDORSEMENT FROM MIESHA ARGUELLO, PATIENT WAS STABLE DURING SHIFT CHANGE. PATIENT IS ANTICIPATED TO BE DISCHARGED TO [facility] PENDING TRANSPORTATION APPROVAL. PATIENT WAS ABLE TO WALK TO RESTROOM WITH NURSING ASSISTANCE FOR BALANCE. PATIENT REMAINS NPO STATUS FOR PROCEDURE FOR ACUTE CHOLECYSTITIS. ROOM AIR WITH EVEN BREATHS AND NO NOTED RESPIRATORY DISTRESS. DENIES ANY PAIN/DISCOMFORT. MNURPH1 .
--- NOTE | 2022-09-22 19:30 | NUR ---
Jeremi [facility] [phone] called and stated that he needs authorization from [facility]. Told Jeremi that pt has Medicare A&B on the facesheet. Jeremi stated that he still needs authorization from [facility] before transferring the patient, and he told me to let the admitting get the authorization. Told Jeremi to call him back for the update.
[2022-09-22 20:00] VITALS: BP 99/45
--- NOTE | 2022-09-22 20:00 | NUR ---
Patient's Plan of Care was discussed and reviewed with ORTHO TECH: ARMANDO FINCH
--- NOTE | 2022-09-22 20:32 | NUR ---
Texted and called Ioana TINAJERO, told Ioana that Jeremi [facility] needs authorization from [facility], she told me to let [facility] know that pt has Medicare A&B. Told Ioana that Rocio MCBRIDE in told [facility] already. Told Ioana that will call [facility] again.
--- NOTE | 2022-09-22 20:38 | NUR ---
Called [facility] Transfer [facility] [phone] and spoke to Hansel, he stated that pt needs authorization from [facility] before [facility] can take the transfer. Told Hansel that pt has Medicare A&B, Hansel still insisted to get the authorization before transferring the patient. Told Hansel to let CM know.
--- NOTE | 2022-09-22 21:05 | NUR ---
Hansel [facility] called and asking for update. Told him that CM was aware and the CM cannot do anything at this time, CM will try to resolve it in the morning
--- NOTE | 2022-09-22 21:11 | NUR ---
COLLECTED PCR RAPID FOR [facility] WAS COLLECTED. PATIENT TOLERATE IT WELL. MNURPH1
[2022-09-23] VITALS: BP 100/48
--- NOTE | 2022-09-23 00:12 | NUR ---
PATIENT WILL AWAIT FOR TRANSFER TO [facility] TOMORROW PENDING INSURANCE APPROVAL TO BE TRANSFER. SONAL ENDORSE TO AM SHIFT. [email or web address]
--- NOTE | 2022-09-23 02:43 | NUR ---
PATIENT NOTED ASLEEP. NO NOTED S/S OF PAIN/DISCOMFORT. NO S/S OF RESPIRATORY DISTRESS. MNURPH1
[2022-09-23 04:00] VITALS: BP 134/60
[2022-09-23 05:25] LABS: ANION GAP 12.3 (8-16); BASOPHILS % (AUTO) 0.1 % (0.0-2.0); CARBON DIOXIDE 23.8 mmol/L (21-32); EOSINOPHILS # (AUTO) 0.1 K/uL (0-0.4); EOSINOPHILS % (AUTO) 0.4 % (0.0-4.0); HEMATOCRIT 28.9 % (36-48); HEMOGLOBIN 9.2 g/dL (12.0-16.0); LYMPHOCYTES # (AUTO) 1.5 K/uL (2.5-16.5); LYMPHOCYTES % (AUTO) 6.8 % (20.5-51.1); MEAN CORPUSCULAR HEMOGLOBIN 28 pg (27-31); MEAN CORPUSCULAR HGB CONC 32 g/dL (33-37); MEAN CORPUSCULAR VOLUME 87.3 fL (80-94); MONOCYTES # (AUTO) 1.4 K/uL (0.8-1.0); MONOCYTES % (AUTO) 6.3 % (1.7-9.3); NEUTROPHILS % (AUTO) 86.4 % (42.2-75.2); PLATELET COUNT (AUTO) 355 K/uL (140-450); POTASSIUM 4.1 mmol/L (3.5-5.1); RED BLOOD CELL COUNT(AUTO) 3.31 MIL/uL (4.20-5.40); RED CELL DISTRIBUTION WIDTH 14.4 % (11.6-13.7)
[2022-09-23] MEDS: metroNIDAZOLE 500 MG/NS PREMIX 100 ML IV SCH ×3 (05:30→21:07)
--- NOTE | 2022-09-23 06:16 | NUR ---
PATIENT NOTED ASLEEP. NO NOTED S/S OF PAIN/DISCOMFORT. NO S/S OF RESPIRATORY DISTRESS. MNURPH1
[2022-09-23] MEDS: BLOOD GLUCOSE MONITORING 1 DEV DEV FS SCH ×4 (06:58→21:07)
--- NOTE | 2022-09-23 07:29 | NUR ---
ENDORSED PATIENT CARE TO MIESHA ARGUELLO FOR CONTINUITY OF CARE. PATIENT WAS STABLE DURING CHANGE OF SHIFT. MNURPH1
--- NOTE | 2022-09-23 07:30 | NUR ---
RECEIVED REPORT FROM TUBING TESTER FOR CONTINUITY OF CARE. INITIAL ASSESSMENT DONE. ALERT AND ORIENTED X 4. IVF INFUSING WELL. NO C/O PAIN OR DISCOMFORT. CALL LIGHT KEPT WITHIN REACH. WILL CONTINUE TO MONITOR.
[2022-09-23 08:00] VITALS: BP 159/55
[2022-09-23 08:18] LABS: ALBUMIN 1.6 g/dL (3.4-5.0); BILIRUBIN,DIRECT 0.1 mg/dL (0.0-0.3); TOTAL BILIRUBIN 0.2 mg/dL (0.0-1.0)
[2022-09-23] MEDS: MAG SULF 2000 MG/WATER PREMIX 50 ML IV PRN (10:22)
--- NOTE | 2022-09-23 10:22 | NUR ---
PRN MAGNESIUM IV GIVEN BY WILLIAM DEWITT. TOLERATED WELL.
[2022-09-23 12:00] VITALS: BP 144/58
[2022-09-23] MEDS: PIPERACILLIN/TAZOBACTAM 3.375 GM in DEXTROSE 5% 50 ML IV SCH ×2 (12:00→18:37)
[2022-09-23] MEDS: INSULIN LISPRO SLIDING SCALE 100 UNITS/ML VIAL SUBQ PRN (12:05)
--- NOTE | 2022-09-23 12:05 | NUR ---
BS CHECKED 202. INSULIN GIVEN PER SLIDING SCALE.
--- NOTE | 2022-09-23 12:50 | NUR ---
DC PLANNING ASSESSMENT COMPLETE PLEASE REFER TO ASSESSMENT FOR ADDITIONAL DETAILS PT IS AWARE SHE CURRENTLY HAS HLOC ORDER PENDING. CM CURRENTLY WORKING TO IDENTIFY A HLOC HOSPITAL. CM TO FOLLOW UP WITH PT ONCE HLOC HOSPITAL IDENTIFIED. PT REQUESTING HER DAUGHTERS ALSO BE NOTIFIED WHEN TRANSFER IS ARRANGED. SW ENDORSED TO CM. IFEOMA BONE- DAUGHTER [phone] DOMI MEDRANO- DAUGHTER [phone] TRINO- DAUGHTER [phone] Addendum: 09/23/22 at 1251 by Delores LOVELACE Amended: Links added.
--- NOTE | 2022-09-23 13:51 | NUR ---
IV ZOSYN WAS GIVEN BY WILLIAM DEWITT. TOLERATED WELL.
--- NOTE | 2022-09-23 14:55 | NUR ---
IV FLAGYL WAS GIVEN BY SIENNA DEWITT. TOLERATED WELL.
[2022-09-23 16:00] VITALS: BP 117/53
--- NOTE | 2022-09-23 17:00 | NUR ---
INFORMED BY WAITER/WAITRESS CLUB THAT SURGEON AT [facility] ACCEPTED THE PT, AND AWAITING FOR BED AVAILABLE. PT AND SON AT BEDSIDE MADE AWARE.
--- NOTE | 2022-09-23 17:18 | NUR ---
BS CHECKED 91. NO COVERAGE NEEDED.
--- NOTE | 2022-09-23 18:37 | NUR ---
IV ZOSYN WAS GIVEN BY WILLIAM DEWITT. TOLERATED WELL.
--- NOTE | 2022-09-23 19:10 | NUR ---
BEDSIDE REPORT GIVEN TO NIGHT NURSE ZAFAR FOR CONTINUITY OF CARE. REMAINS STABLE.
--- NOTE | 2022-09-23 19:10 | NUR ---
PER ENDORSED PT IS FOR TRANSFER TO [facility]
[2022-09-23 20:00] VITALS: BP 112/60
--- NOTE | 2022-09-23 20:00 | NUR ---
PER PT . SHE WANTS TO CLEAN UP AND CHANGE NEW GOWN IN THE MORNING . I REPLIED HER OK I WILL HELP YOU AND WILL PROVIDE YOU NEW GOWN AND TOILETRIES .
--- NOTE | 2022-09-23 22:10 | NUR ---
PT REQUESTING DRINKING WATER , REMINDS PT SHE IS NPO , EDUCATES PT THE IMPORTANCE OF REMAIN / MAINTAI NPO WHEN IT COMES TO OBSERVATION OF ABDL . PAIN . PT'S VERBALIZES UNDERSTANDING . WILL CONT. TO MONITOR .
[2022-09-23] MEDS: DEXT 5% /NACL 0.9% 1,000 ML IV SCH (22:20)
[2022-09-23] MEDS ORDERED: PIPERACILLIN/TAZOBACTAM 2.25 GM VIAL IV ONE (22:27)
[2022-09-23] MEDS: PIPERACILLIN/TAZOBACTAM 2.25 GM in DEXTROSE 5% 50 ML IV SCH (22:37)
[2022-09-24] VITALS: BP 114/61
--- NOTE | 2022-09-24 | NUR ---
ROUNDS , NO S/SX OF ACUTE DISTRESS NOTED , DENIES PAIN AT THIS ITME . CALL LIGHT WITHIN REACH .
--- NOTE | 2022-09-24 01:00 | NUR ---
WHEN I 'M SITTING IN THE FRONT OF BED 110A , CAMPOS PEÑA RN ,APPROACHES TO ME CAMPOS SAID ZAFAR I NOTICE YOUR PT 121 BED A IS NOT IN THERE , NO ONE WAS HIT THE CALL LIGHT . WILL VISIT THE PT 'S ROOM .
--- NOTE | 2022-09-24 01:02 | NUR ---
FOUND PT IN THE REST ROOM DOING NUMBER 2 , I ASKED HER IS SHE OK , SHE SAID " I ' M OK " I ASKED HER IF SHE HAS DIZZINESS SHE REPLIED " NO ". ASSISTING PT. TO CLEAN UP THE BUTT AND ASSIST HER TO GO BACK TO THE BED . I ASKED HER WHY SHE DID NOT HIT TO CALL LIGHT SO THAT I ABLE TO ASSIST HER TO THE REST ROOM ? PER PT SHE HIT THE CALL LIGHT WHILE AGO NO ONE CAME IN THE ROOM . I APOLOGIES HER , BUT NO ONE TOLD ME THAT THE PT WAS HIT THE CALL LIGHT . REMINDS PT. IF SHE WILL GO TO RESTROOM AGAIN - SHE HAVE TO HIT THE CALL LIGHT . PT'S VERBALIZES UNDERSTANDING . PT'S HAD BM IN SMALL AMOUNT IN SEMI WATERY CONSISTENCY - WILL CONT. TO MONITOR , AAOX4 , CALL LIGHT WITHIN REACH .
--- NOTE | 2022-09-24 01:30 | NUR ---
RE VISIT THE PT I ASKS HER HOW'S THE ABDL PAIN ? , SHE SAID THE PAIN STARTED WHEN I'M ABOUT TO POOP BUT WHEN SHE POOP DONE , THE PAIN LESSEN UNTIL IT GO AWAY . ASK HER IF SHE WANTS PAIN MED. SHE SAID NO THE PAIN ALMOST GONE . REMINDS HER IF THE ABDL. PAIN PERSIST LET ME KNOW . PT VERBALIZES UNDERSTANDING . CALL LIGHT WITHIN REACH .
--- NOTE | 2022-09-24 02:21 | NUR ---
REQUESTED TO GAYLE MELARA) TO CLEAN THE ROOM 121 RESTROOM - CRISTOBAL CLEANED THE RESTROOM .
[2022-09-24 04:00] VITALS: BP 110/60
--- NOTE | 2022-09-24 04:00 | NUR ---
ROUNDS , SLEEPY , NO COMPLAIN MADE , CALL LIGHT WITHIN REACH , WILL CONT. TO MONITOR
[2022-09-24] MEDS: metroNIDAZOLE 500 MG/NS PREMIX 100 ML IV SCH ×2 (05:27→13:09)
--- NOTE | 2022-09-24 06:00 | NUR ---
ASSISTING PT FOR SPONGE BATH , OFFER [facility] GOWN , BUT REFUSE IT - SHE WANTS TO WEAR HER OWN CLOTHES . STIIL ON NON SKID SOCKS .
[2022-09-24] MEDS: PIPERACILLIN/TAZOBACTAM 2.25 GM in DEXTROSE 5% 50 ML IV SCH ×3 (06:20→20:14)
--- NOTE | 2022-09-24 06:30 | NUR ---
AFTER THE ASSISTED AM HYGIENE CARE . PT BACK TO BED , RE CONNECT THE IV . WILL ENDORSE . Addendum: 09/24/22 at 0731 by Lashonda Mcfadden RN AT 0630 + BM MIN. B AMOUNT , SEMI WATERY . DENIES PAIN .
[2022-09-24] MEDS ORDERED: PIPERACILLIN/TAZOBACTAM 2.25 GM VIAL IV ONE (06:31)
--- NOTE | 2022-09-24 07:15 | NUR ---
BEDSIDE REPORT RECEIVED FROM ZAFAR -RENATE. SHOWED TO ZAFAR ABOUT IV INFILTRATION AND FLUID LEAKING ON LEFT FOREARM (GAUGE #20). D/C IVF. PT. IN STABLE CONDITION. INITIAL ASSESSMENT DONE. KEEP COMFORTABLE ON BED. ELEVATED LUE WITH PILLOWS. FALL PRECAUTION APPLIED. CALL LIGHT WITHIN REACH.
[2022-09-24] MEDS: BLOOD GLUCOSE MONITORING 1 DEV DEV FS SCH ×4 (07:25→20:14)
--- NOTE | 2022-09-24 07:27 | NUR ---
UPON BEDSIDE REPORTING PT C/O PAIN ON IV SITE , ASSESS PT'S IV SITE INFILTRATED , I ENDORSE TO RENATE GAMA , FOR REMOVAL OF IV CANULLA AND FOR IV RE INSERTION , RENATE GAMA VERBALIZES UNDERSTANDING .ENDORSED .
[2022-09-24 07:43] LABS: CARBON DIOXIDE 25.7 mmol/L (21-32); CREATININE 1.9 mg/dL (0.6-1.3); POTASSIUM 3.7 mmol/L (3.5-5.1)
--- NOTE | 2022-09-24 07:45 | NUR ---
INSERTED NEW IV ACCESS ON RIGHT FOREARM WITH GAUGE #22. TOLERATED WELL. REMOVED INFILTRATED IV ACCESS ON RIGHT FOREARM GAUGE #22 AND REMAINED ELEVATED WITH PILLOWS. INFILTRATED IV ACCESS SHOWED TO RESOURCE NURSE TAISHA -RENATE.
[2022-09-24 07:48] LABS: BASOPHILS % (AUTO) 0.2 % (0.0-2.0); EOSINOPHILS # (AUTO) 0.2 K/uL (0-0.4); HEMATOCRIT 27.9 % (36-48); HEMOGLOBIN 8.9 g/dL (12.0-16.0); LYMPHOCYTES # (AUTO) 1.2 K/uL (2.5-16.5); LYMPHOCYTES % (AUTO) 7.8 % (20.5-51.1); MEAN CORPUSCULAR HEMOGLOBIN 28 pg (27-31); MEAN CORPUSCULAR HGB CONC 32 g/dL (33-37); MEAN CORPUSCULAR VOLUME 87.8 fL (80-94); MONOCYTES % (AUTO) 6.9 % (1.7-9.3); NEUTROPHILS # (AUTO) 12.5 K/uL (1.8-7.7); NEUTROPHILS % (AUTO) 84.1 % (42.2-75.2); PLATELET COUNT (AUTO) 367 K/uL (140-450); RED BLOOD CELL COUNT(AUTO) 3.18 MIL/uL (4.20-5.40); RED CELL DISTRIBUTION WIDTH 14.5 % (11.6-13.7); WHITE BLOOD COUNT (AUTO) 14.9 K/uL (4.8-10.8)
--- NOTE | 2022-09-24 08:00 | NUR ---
Patient's Plan of Care was discussed and reviewed with SALES OPERATIONS DIRECTOR: LANETTE
[2022-09-24 08:15] VITALS: BP 135/54
[2022-09-24] MEDS: PANTOPRAZOLE 40 MG INJ VIAL IVP SCH (08:56)
--- NOTE | 2022-09-24 11:00 | NUR ---
WENT TO BATHROOM WITH ASSISTANCE FROM SAMUEL FRANKLIN. TOLERATED WELL. NO C/O PAIN.
[2022-09-24 12:00] VITALS: BP 146/68
[2022-09-24] MEDS: DEXT 5% /NACL 0.9% 1,000 ML IV SCH (12:08)
--- NOTE | 2022-09-24 12:53 | NUR ---
Dereck spencer at [facility] called and gave room number for patient to transfer for surgery but stated let me call Dr. Ismael Tomas to see if he will do the surgery. Dereck Alejandro called back and she was informed that we do have auth for [place] and Auth for the transportation. Denisse Alejandro stated that Dr. Ismael Tomas does not want to accept and she gave me Dr. Tomas to call him. [phone]- I called and left Dr. Tomas a message reagarding the transfer.
--- NOTE | 2022-09-24 15:10 | NUR ---
COLLECTED URINE SPECIMEN AND SEND TO LAB FOR URINE CREATININE, SODIUM RANDOM, AND UREA NITROGEN.
--- NOTE | 2022-09-24 15:27 | NUR ---
DR. VELAZQUEZ CAME AND ORDERED FULL LIQUID DIET, AND D/C IVF. INFORMED RESOURCE NURSE TAISHA -RENATE.
[2022-09-24 16:00] VITALS: BP 151/62
[2022-09-24] MEDS: INSULIN LISPRO SLIDING SCALE 100 UNITS/ML VIAL SUBQ PRN ×2 (16:34→20:16)
--- NOTE | 2022-09-24 16:38 | NUR ---
director of casework services from [facility] [place] clinical notes fax to [phone]
--- NOTE | 2022-09-24 16:41 | NUR ---
Maegan from [facility] case operator fax progress notes to [phone]
[2022-09-24] MEDS: ALBUMIN HUMAN 25% 50 ML IV SCH (16:59)
--- NOTE | 2022-09-24 19:18 | NUR ---
BEDSIDE REPORT GIVEN TO MARIE DWYER. IN STABLE CONDITION.
--- NOTE | 2022-09-24 19:19 | NUR ---
RECEIVED PT FROM MORNING SHIFT NURSE. PT IS AOX4, AMBULATORY WITH ASSIST, ABLE VERBALIZE NEEDS AND ABLE TO FOLLOW COMMANDS. PT IS ON ROOM AIR AND ON FULL LIQUID DIET. PT HAS IV ON RIGHT FOREARM GAUGE 22, SALINE LOCK. PT SKIN IS INTACT. PT DENIES PAIN AT THIS TIME. NO S/S OF RESPIRATORY DISTRESS NOTED. ALL SAFETY MEASURES IMPLEMENTED. BED IN LOW POSITION, BED WHEELS ON LOCK AND CALL LIGHT WITHIN REACH.
[2022-09-24 20:00] VITALS: BP 129/56
--- NOTE | 2022-09-24 20:16 | NUR ---
SCHEDULED AND PRESCRIBED MEDICATION WAS GIVEN TO PT PER MD ORDER. PT HAS BLOOD GLUCOSE OF 192. HUMALOG INSULIN 2 UNITS WAS GIVEN TO PT. ALL SAFETY MEASURES IMPLEMENTED. BED IN LOW POSITION, BED WHEELS ON LOCK AND CALL LIGHT WITHIN REACH.
--- NOTE | 2022-09-24 20:54 | NUR ---
RECEIVED A CALL FROM LEANDRA OF [facility]. WE DISCUSSED THE CASE OF THE PT REGARDING TRANSFERRING THE PT FROM HIGHER LEVEL OF CARE. SHE ALSO DISCUSS THAT SHE WILL FIND A HOSPITAL THAT WILL ACCEPT THE PT.
--- NOTE | 2022-09-24 22:00 | NUR ---
CHANGED PT'S BATTERY ON TELE MONITOR. PT DENIES PAIN. NO S/S OF RESPIRATORY DISTRESS NOTED. ALL SAFETY MEASURES IMPLEMENTED. VIOLA DIN LOW POSITION, BED WHEELS ON LOCK AND CALL LIGHT WITHIN REACH.
[2022-09-24 22:27] LABS: CREATININE,URINE RANDOM 22 mg/dL (30-125); URINE SODIUM, RANDOM 55 mmol/l (40-220)
[2022-09-25] VITALS: BP 133/52
--- NOTE | 2022-09-25 | NUR ---
PT IS ON SLEEP. CHEST RISE AND FALL SYMMETRICALLY NOTED. RESPIRATION IS EVEN AND UNLABORED. ALL SAFETY MEASURES IMPLEMENTED. VIOLA DIN LOW POSITION, BED WHEELS ON LOCK AND CALL LIGHT WITHIN REACH.
--- NOTE | 2022-09-25 02:00 | NUR ---
CHECKED THE PT, STILL ON SLEEP. CHEST RISE AND FALL SYMMETRICALLY NOTED. RESPIRATION IS EVEN AND UNLABORED. ALL SAFETY MEASURES IMPLEMENTED. VIOLA DIN LOW POSITION, BED WHEELS ON LOCK AND CALL LIGHT WITHIN REACH.
[2022-09-25 04:00] VITALS: BP 135/59
[2022-09-25] MEDS: PIPERACILLIN/TAZOBACTAM 2.25 GM in DEXTROSE 5% 50 ML IV SCH ×3 (04:37→20:12)
--- NOTE | 2022-09-25 04:37 | NUR ---
SCHEDULED AND PRESCRIBED MEDICATION WAS GIVEN TO PT PER MD ORDER. ALL SAFETY MEASURES IMPLEMENTED. VIOLA DIN LOW POSITION, BED WHEELS ON LOCK AND CALL LIGHT WITHIN REACH.
[2022-09-25] MEDS: BLOOD GLUCOSE MONITORING 1 DEV DEV FS SCH ×4 (06:34→20:26)
--- NOTE | 2022-09-25 06:34 | NUR ---
PT BLOOD GLUCOSE IS 160. HUMALOG INSULIN 2 UNITS WAS GIVEN TO PT.
[2022-09-25 06:35] LABS: BASOPHILS # (AUTO) 0.1 K/uL (0.00-0.22); BASOPHILS % (AUTO) 0.4 % (0.0-2.0); EOSINOPHILS # (AUTO) 0.1 K/uL (0-0.4); EOSINOPHILS % (AUTO) 1.2 % (0.0-4.0); HEMATOCRIT 26.9 % (36-48); HEMOGLOBIN 8.7 g/dL (12.0-16.0); LYMPHOCYTES # (AUTO) 1.3 K/uL (2.5-16.5); LYMPHOCYTES % (AUTO) 10.2 % (20.5-51.1); MEAN CORPUSCULAR HEMOGLOBIN 28 pg (27-31); MEAN CORPUSCULAR HGB CONC 33 g/dL (33-37); MEAN CORPUSCULAR VOLUME 86.7 fL (80-94); MONOCYTES # (AUTO) 1.1 K/uL (0.8-1.0); MONOCYTES % (AUTO) 8.8 % (1.7-9.3); NEUTROPHILS # (AUTO) 9.8 K/uL (1.8-7.7); NEUTROPHILS % (AUTO) 79.4 % (42.2-75.2); PLATELET COUNT (AUTO) 353 K/uL (140-450); RED BLOOD CELL COUNT(AUTO) 3.11 MIL/uL (4.20-5.40); RED CELL DISTRIBUTION WIDTH 14.6 % (11.6-13.7); WHITE BLOOD COUNT (AUTO) 12.3 K/uL (4.8-10.8)
[2022-09-25] MEDS: INSULIN LISPRO SLIDING SCALE 100 UNITS/ML VIAL SUBQ PRN ×3 (06:36→16:42)
[2022-09-25 07:00] LABS: ANION GAP 12.2 (8-16); CARBON DIOXIDE 25.1 mmol/L (21-32); CREATININE 1.6 mg/dL (0.6-1.3); POTASSIUM 3.3 mmol/L (3.5-5.1)
--- NOTE | 2022-09-25 07:18 | NUR ---
PT IS STABLE. ENDORSED PT TO MORNING SHIFT NURSE FOR CONTINUITY OF CARE.
--- NOTE | 2022-09-25 07:35 | NUR ---
GOT REPORT FROM THE NIGHT NURSE, PT AWAKE DISCUSSED POC [id number]
[2022-09-25 08:00] VITALS: BP 129/56
[2022-09-25] MEDS: ALBUMIN HUMAN 25% 50 ML IV SCH ×3 (08:56→17:00)
[2022-09-25] MEDS: PANTOPRAZOLE 40 MG INJ VIAL IVP SCH (08:56)
[2022-09-25] MEDS: MAG SULF 2000 MG/WATER PREMIX 50 ML IV PRN (10:13)
--- NOTE | 2022-09-25 10:46 | NUR ---
RENATE SPOKE WITH LEANDRA AT [facility] ([phone] UNTIL 1800), LEANDRA HAS APPROACHED [facility], [facility] AND [facility] FOR TRANSFER FOR SURGERY AND IS WAITING FOR THEIR RESPONSES. Addendum: 09/25/22 at 1804 by Rocio Polanco CM LEANDRA FROM [facility] FOLLOWED UP WITH THE HAND ETCHER REGARDING PATIENT TRANSFER TO [facility]. [facility] HAS NO BEDS AND [facility] IS CLOSED TO ADMISSIONS. [facility] IS REVIEWING THE PATIENTS CLINICAL PACKET. THE CM AFTER 1800 IS [place], SHE CAN BE REACHED VIA THE AFTER HOURS PHONE NUMBER OF [phone]. Addendum: 09/26/22 at 1133 by Ioana Sandy RN DC PLANNING: CALLED [facility] SPOKE WITH LATOYA HOLLIDAY [facility] IS NOT CONTRACTED WITH [facility] ,REQUESTED TO FAX TO [facility]. CM FAXED TO [facility]. CM TO FOLLOW Addendum: 09/26/22 at 1318 by Ioana Sandy RN DC PLANNING: RECEIVED A CALL FROM [facility] HAND ETCHER SPOKE WITH MICH STATED THEY HAVE 27 PATIENT WAITING FOR BED AT AND NO BED AVAILABLE. CALLED NOTIFIED LATOYA TINAJERO AT [facility] , HE REQUESTED TO FAX IT TO [facility]. LIOR SPOKE WITH PATIENT AND PT'S DAUGHTER THEY REFUSED TO GO TO [facility] NOTIFIED LATOYA. PATIENT DAUGHTER STATED MIGHT SIGN AMA. CM TO FOLLOW Addendum: 09/27/22 at 1527 by Ioana Sandy RN DC PLANNING: PER INSURANCE TO TRANSFER TO [facility] FAXED ALL PAPERWORK . PER [facility] THER IS NO ACCEPTING DR CARCAMO SPOKE WITH THE SURGEON AND RECOMMENDED FOR PLACEMENT OF CHOLECYSTECTOMY TUBE AND FOLLOW UP OUTPATIENT FOR CHOLECYSTECTOMY. PATIENT AND DAUGHTER IN AGREEMENT AND SCHEDULED FOR DOMENIC TO INSERT THE DRAINAGE TUBE. CM TO FOLLOW
[2022-09-25 12:00] VITALS: BP 118/61
[2022-09-25 16:00] VITALS: BP 155/60
--- NOTE | 2022-09-25 19:24 | NUR ---
gave report to the night nurse, pt is stable.[email or web address]
--- NOTE | 2022-09-25 19:30 | NUR ---
RECEIVED PATIENT LYING ON THE BED, PATIENT IS AWAKE, ALERT AND ORIENTED, IN NO ACUTE DISTRESS , DENIES PAIN. CALL LIGHT WITHIN REACH.
[2022-09-25 20:00] VITALS: BP 143/69
--- NOTE | 2022-09-25 20:30 | NUR ---
SCHEDULED MEDICATIONS GIVEN ORDERED. PATIENT'S BLOOD SUGAR 148 MG/DL, NO INSULIN COVERAGE NEEDED. CALL LIGHT WITHIN REACH.
[2022-09-26] VITALS: BP 153/73
--- NOTE | 2022-09-26 01:00 | NUR ---
ASSISTED PATIENT TO THE RESTROOM, SKIN CHECK DONE, SKIN IS INTACT. NO SOB NOTED, DENIES PAIN. CALL LIGHT WITHIN REACH, BED IN LOW AND LOCKED POSITION.
[2022-09-26 04:00] VITALS: BP 141/60
[2022-09-26] MEDS: PIPERACILLIN/TAZOBACTAM 2.25 GM in DEXTROSE 5% 50 ML IV SCH ×3 (04:49→21:48)
[2022-09-26 05:53] LABS: BASOPHILS % (AUTO) 0.2 % (0.0-2.0); EOSINOPHILS # (AUTO) 0.1 K/uL (0-0.4); EOSINOPHILS % (AUTO) 0.9 % (0.0-4.0); HEMATOCRIT 28.9 % (36-48); HEMOGLOBIN 9.2 g/dL (12.0-16.0); LYMPHOCYTES # (AUTO) 1.4 K/uL (2.5-16.5); LYMPHOCYTES % (AUTO) 11.3 % (20.5-51.1); MEAN CORPUSCULAR HEMOGLOBIN 28 pg (27-31); MEAN CORPUSCULAR HGB CONC 32 g/dL (33-37); MEAN CORPUSCULAR VOLUME 86.5 fL (80-94); MONOCYTES # (AUTO) 1.1 K/uL (0.8-1.0); MONOCYTES % (AUTO) 8.9 % (1.7-9.3); NEUTROPHILS # (AUTO) 10.1 K/uL (1.8-7.7); NEUTROPHILS % (AUTO) 78.7 % (42.2-75.2); PLATELET COUNT (AUTO) 387 K/uL (140-450); RED BLOOD CELL COUNT(AUTO) 3.35 MIL/uL (4.20-5.40); RED CELL DISTRIBUTION WIDTH 14.4 % (11.6-13.7); WHITE BLOOD COUNT (AUTO) 12.8 K/uL (4.8-10.8)
--- NOTE | 2022-09-26 06:30 | NUR ---
PATIENT'S BLOOD SUGAR 151, 2 UNITS HUMALOG GIVEN ORDERED.
[2022-09-26] MEDS: BLOOD GLUCOSE MONITORING 1 DEV DEV FS SCH ×4 (06:33→21:48)
[2022-09-26] MEDS: INSULIN LISPRO SLIDING SCALE 100 UNITS/ML VIAL SUBQ PRN ×2 (06:34→16:57)
--- NOTE | 2022-09-26 07:10 | NUR ---
RECEIVED BEDSIDE REPORT FROM NIGHT NURSE ANNALIRADHA FOR CONTINUITY OF CARE. INITIAL ASSESSMENT DONE. ALERT AND ORIENTED X 4. RESP. EVEN AND UNLABORED. ON SALINE LOCK. NO C/O PAIN OR DISCOMFORT. CALL LIGHT KEPT WITHIN REACH. WILL CONTINUE TO MONITOR.
--- NOTE | 2022-09-26 07:14 | NUR ---
ENDORSED PATIENT TO DAY NURSE FOR CONTINUITY OF CARE. PATIENT IN STABLE CONDITION.
[2022-09-26 07:48] LABS: PROTHROMBIN TIME 12.4 secs (10.8-13.4)
[2022-09-26 08:00] VITALS: BP 150/62
[2022-09-26 08:16] LABS: CREATININE 1.3 mg/dL (0.6-1.3)
[2022-09-26] MEDS: PANTOPRAZOLE 40 MG INJ VIAL IVP SCH (08:56)
--- NOTE | 2022-09-26 08:56 | NUR ---
SCHEDULED HEPAIN SQ GIVEN. TOLERATED WELL.
[2022-09-26 09:12] LABS: ALBUMIN 2.5 g/dL (3.4-5.0); BILIRUBIN,DIRECT 0.1 mg/dL (0.0-0.3); MAGNESIUM 1.4 mg/dL (1.8-2.4); TOTAL BILIRUBIN 0.4 mg/dL (0.0-1.0)
[2022-09-26] MEDS: MAG SULF 2000 MG/WATER PREMIX 50 ML IV PRN (10:26)
--- NOTE | 2022-09-26 10:26 | NUR ---
PRN MAGNESIUM IV WAS GIVEN BY ARA DEWITT. TOLERATED WELL.
--- NOTE | 2022-09-26 11:21 | NUR ---
BS CHECKED 136. NO COVERAGE NEEDED.
[2022-09-26 12:00] VITALS: BP 135/50
--- NOTE | 2022-09-26 14:03 | NUR ---
IV ZOSYN WAS GIVEN PERLITA CONTI TOLERATED WELL.
[2022-09-26 16:00] VITALS: BP 143/62
--- NOTE | 2022-09-26 16:59 | NUR ---
BS CHECKED 156. INSULIN WAS GIVEN PER SLIDING SCALE.
--- NOTE | 2022-09-26 19:30 | NUR ---
BEDSIDE REPORT GIVEN TO NIGHT NURSE ALE FOR CONTINUITY OF CARE. ENDORSED TO ALE PT IS PENDING TRANSFER TO [facility] AWAITING FOR ACCEPTING SURGEON. REMAINS STABLE.
--- NOTE | 2022-09-26 19:31 | NUR ---
RECEIVED REPORT FROM DAY SHIFT RN FOR CONTINUITY OF CARE. PT IS RESTING IN BED NOT IN ANY DISTRESS. PT IS ON RA SATING 92. BREATHING EVEN AND UNLABORED. PT RIGHT FOREARM 22 GAUGE SALINE LOCK. POC DISCUSSED. SAFETY MEASURES TAKEN. WILL CONTINUE TO MONITOR THE PT.
[2022-09-26 20:00] VITALS: BP 150/76
--- NOTE | 2022-09-26 21:50 | NUR ---
SCHEDULE MEDICATIONS GIVEN. NO ADVERSE REACTION NOTED. WILL CONTINUE TO MONITOR THE PT.
[2022-09-27] VITALS: BP 143/66
--- NOTE | 2022-09-27 01:00 | NUR ---
OBSERVED PT. PT IS SLEEPING COMFORTABLY IN BED. PT NOT IN ANY DISTRESS. BREATHING EVEN AND UNLABORED. WILL CONTINUE TO MONITOR THE PT.
[2022-09-27 04:00] VITALS: BP 142/58
[2022-09-27] MEDS: PIPERACILLIN/TAZOBACTAM 2.25 GM in DEXTROSE 5% 50 ML IV SCH ×3 (04:40→20:53)
[2022-09-27] MEDS: BLOOD GLUCOSE MONITORING 1 DEV DEV FS SCH ×4 (06:35→20:53)
[2022-09-27 07:09] LABS: ANION GAP 13.6 (8-16); CARBON DIOXIDE 27.1 mmol/L (21-32); CREATININE 1.2 mg/dL (0.6-1.3); POTASSIUM 3.7 mmol/L (3.5-5.1)
[2022-09-27 07:13] LABS: ALBUMIN 2.2 g/dL (3.4-5.0); BILIRUBIN,DIRECT 0.1 mg/dL (0.0-0.3); MAGNESIUM 1.7 mg/dL (1.8-2.4); TOTAL BILIRUBIN 0.4 mg/dL (0.0-1.0)
[2022-09-27 07:19] LABS: BASOPHILS % (AUTO) 0.2 % (0.0-2.0); EOSINOPHILS # (AUTO) 0.1 K/uL (0-0.4); EOSINOPHILS % (AUTO) 1.1 % (0.0-4.0); HEMATOCRIT 30.3 % (36-48); HEMOGLOBIN 9.6 g/dL (12.0-16.0); LYMPHOCYTES # (AUTO) 1.3 K/uL (2.5-16.5); LYMPHOCYTES % (AUTO) 10.3 % (20.5-51.1); MEAN CORPUSCULAR HEMOGLOBIN 28 pg (27-31); MEAN CORPUSCULAR HGB CONC 32 g/dL (33-37); MEAN CORPUSCULAR VOLUME 87.3 fL (80-94); MONOCYTES % (AUTO) 8.5 % (1.7-9.3); NEUTROPHILS # (AUTO) 9.8 K/uL (1.8-7.7); NEUTROPHILS % (AUTO) 79.9 % (42.2-75.2); PLATELET COUNT (AUTO) 396 K/uL (140-450); RED BLOOD CELL COUNT(AUTO) 3.47 MIL/uL (4.20-5.40); RED CELL DISTRIBUTION WIDTH 14.9 % (11.6-13.7); WHITE BLOOD COUNT (AUTO) 12.3 K/uL (4.8-10.8)
--- NOTE | 2022-09-27 07:20 | NUR ---
RECEIVED REPORT FROM INCOME TAX ADMINISTRATOR FOR CONTINUITY OF CARE. ALERT AND ORIENTED X4. RESP. EVEN AND UNLABORED. IV SITE INTACT AND PATENT. NO C/O PAIN OR DISCOMFORT. CALL LIGHT KEPT WITHIN REACH. WILL CONTINUE TO MONITOR.
--- NOTE | 2022-09-27 07:25 | NUR ---
ENDORSED PT TO DAY SHIFT NURSE FOR CONTINUITY OF CARE. PT IS STABLE.
[2022-09-27 08:00] VITALS: BP 145/59
[2022-09-27] MEDS: PANTOPRAZOLE 40 MG INJ VIAL IVP SCH (09:34)
--- NOTE | 2022-09-27 09:35 | NUR ---
RECEIVED CALLED FROM RADIOLOGY, CLARIFIED IR FOR CHOLECYSTOSTOMY TUBE PLACEMENT. WITH RECOMMENDATIONS. PT WILL BE ON NPO, LABS ORDER: PT/INR, PLATELET, PTT. DR. RAY NOTIFIED AND AGREED. PT AND FAMILY MADE AWARE.
[2022-09-27] MEDS: INSULIN LISPRO SLIDING SCALE 100 UNITS/ML VIAL SUBQ PRN ×2 (11:56→20:51)
[2022-09-27 12:00] VITALS: BP 140/61
--- NOTE | 2022-09-27 12:04 | NUR ---
SCHEDULED HEPARIN NOT GIVEN D/T CHOLECYSTOSTOMY TUBE PLACEMENT.
[2022-09-27 12:59] LABS: PROTHROMBIN TIME 11.4 secs (10.8-13.4)
--- NOTE | 2022-09-27 13:43 | NUR ---
IV ZOSYN WAS GIVEN BY WILLIAM DEWITT. TOLERATED WELL.
--- NOTE | 2022-09-27 14:00 | NUR ---
MADE FOLLOW UP BY RADIOLOGY SPOKE TO LAYLA,REGARDING SCHEDULED FOR CHOLECYSTOSTOMY TUBE PLACEMENT. STATED STILL WAITING FOR RADIOLOGIST. CM MADE AWARE.
--- NOTE | 2022-09-27 15:12 | NUR ---
09/27/22 RD INITIAL ASSESSMENT COMPLETED PLEASE REFER TO NUTRITION ASSESSMENT UNDER CARE ACTIVITY FOR ESTIMATED NUTRITIONAL NEEDS. 1. MONITOR NPO STATUS 2. WHEN/IF MEDICALLY APPROPRIATE RECOMMEND EHUR11S DIET. 3. NUTRITION EDUCATION AND HANDOUT FOR CARB COUNTING 4. MONITOR GI, PO INTAKE, AND LAB VALUES. 5. RD TO FOLLOW-UP 3-5 DAYS, MODERATE RISK REVIEWED BY MAGAN EPPS RD
[2022-09-27 16:00] VITALS: BP 150/57
[2022-09-27] MEDS: MAG SULF 2000 MG/WATER PREMIX 50 ML IV PRN (16:06)
--- NOTE | 2022-09-27 16:06 | NUR ---
MAGNESIUM 1.7, PRN MAG RIDER WAS GIVEN BY WILLIAM DEWITT. TOLERATED WELL.
--- NOTE | 2022-09-27 16:45 | NUR ---
RECEIVED CALLED FROM RADIOLOGY SPOKE TO LAYLA, STATED PT IS SCHEDULED FOR CHOLECYCTOSTOMY TUBE PLACEMENT WILL BE DONE TOMORROW, PT REMAINS NPO AFTER MIDNIGHT. DR. RAY MADE AWARE. FAMILY NOTIFIED.
--- NOTE | 2022-09-27 17:15 | NUR ---
RECEIVED CALLED FROM RADIOLOGY STATED THAT RADIOLOGIST RECOMMEND CT SCAN ABDOMEN WITH CONTRAST. DR. RAY MADE AWARE.
--- NOTE | 2022-09-27 19:25 | NUR ---
BEDSIDE REPORT GIVEN TO PV DESIGN ENGINEER FOR CONTINUITY OF CARE. ENDORSED TO ALE PT HAD ORDER FOR CT SCAN ABDOMEN WITH IV CONTRAST. UNABLE TO INSERT NEW IV ACCESS. REMAINS STABLE.
--- NOTE | 2022-09-27 19:30 | NUR ---
RECEIVED REPORT FROM DAY SHIFT NURSE FOR CONTINUITY OF CARE. PT IS RESTING IN BED NOT IN ANY DISTRESS. PT IS ON RA SATING 94. BREATHING EVEN AND UNLABORED. PT RIGHT FOREARM 22 GAUGE SALINE LOCK. POC DISCUSSED. SAFETY MEASURES TAKEN. WILL CONTINUE TO MONITOR THE PT.
[2022-09-27 20:00] VITALS: BP 141/58
[2022-09-28] VITALS: BP 146/60
--- NOTE | 2022-09-28 00:25 | NUR ---
PT JUST HAD HER CT SCAN OF THE ABD. PT BACK TO UNIT SAFELY.
[2022-09-28 04:00] VITALS: BP 139/57
[2022-09-28] MEDS: PIPERACILLIN/TAZOBACTAM 2.25 GM in DEXTROSE 5% 50 ML IV SCH (04:49)
--- NOTE | 2022-09-28 04:50 | NUR ---
SCHEDULE MEDICATIONS GIVEN. NO ADVERSE REACTION NOTED. WILL CONTINUE TO MONITOR THE PT.
[2022-09-28 06:09] LABS: ALBUMIN 2.1 g/dL (3.4-5.0); BILIRUBIN,DIRECT 0.1 mg/dL (0.0-0.3); MAGNESIUM 1.7 mg/dL (1.8-2.4); TOTAL BILIRUBIN 0.4 mg/dL (0.0-1.0)
[2022-09-28] MEDS: INSULIN LISPRO SLIDING SCALE 100 UNITS/ML VIAL SUBQ PRN ×2 (06:32→20:34)
[2022-09-28] MEDS: BLOOD GLUCOSE MONITORING 1 DEV DEV FS SCH ×4 (06:33→20:31)
--- NOTE | 2022-09-28 07:20 | NUR ---
ENDORSED PT TO DAY SHIFT RN FOR CONTINUITY OF CARE. PT IS STABLE.
[2022-09-28 08:00] VITALS: BP_SYST 126; BP_SYST 141; BP_DIAS 51; BP_DIAS 58
--- NOTE | 2022-09-28 08:00 | NUR ---
GOT REPORT FROM THE NIGHT, PT SLEEPING , NO SOB.[id number]
[2022-09-28] MEDS: PANTOPRAZOLE 40 MG INJ VIAL IVP SCH (09:34)
[2022-09-28] MEDS: MAG SULF 2000 MG/WATER PREMIX 50 ML IV PRN (11:21)
[2022-09-28 12:00] VITALS: BP 113/56
[2022-09-28] MEDS ORDERED: fentaNYL citrate 0.05 MG/ML VIAL ONE (12:58)
[2022-09-28] MEDS ORDERED: FLUMAZENIL 0.5 MG/5 ML VIAL IVP ONE (12:58)
[2022-09-28] MEDS ORDERED: NALOXONE 0.4 MG/ML VIAL ONE (12:58)
[2022-09-28] MEDS ORDERED: MIDAZOLAM 5 MG/5 ML VIAL ONE (12:59)
[2022-09-28] MEDS ORDERED: LIDOCAINE 1% 500 MG/50 ML VIAL ONE (12:59)
--- NOTE | 2022-09-28 13:58 | NUR ---
PT. WITH LOW ALE SCALE AT MODERATE TO HIGH RISK, CONTINUE TO FOLLOW PRESSURE INJURY PREVENTION INTERVENTIONS. -POSITIONING: TURN AND REPOSITION PATIENT Q 2H OR SOONER USE PILLOWS TO KEEP BONY PROMINENCES FROM DIRECT CONTACT WITH SURFACES USE REPOSITIONING WEDGES TO PROVIDE 30-DEGREE ANGLE FOR SIDE LYING POSITIONS OFFLOADING OR FOAM DRESSING TO ALL TUBING TO PREVENT MEDICAL DEVICES RELATED PRESSURE INJURY -RE-EVALUATING AND MANAGING INCONTINENCE MONITOR SKIN CONDITION DURING POSITION CHANGE DO NOT MASSAGE REDNESS, BONY PROMINENCES FREQUENT BALDEMAR-CARE AND PROVIDE BARRIER CREAMS PRN IF SOILING MOISTURE CONTROL BY OFFER BED RODRIGUES/URINAL /ABSORBENT PAD TO WICK AND HOLD MOISTURE KEEP SKIN DRY AND PROTECT FROM FRICTION -MANAGE FRICTION/SHEAR/MOBILITY KEEP HOB AT THE LOWEST LEVEL OF ELEVATION NO MORE THAN 30 DEGREE UNLESS OTHERWISE CONTRAINDICATED USE LIFT SHEET OR TRANSFER DEVICE TO MOVE PATIENT AND PREVENT LATERAL SHEER. PROTECT HEELS, ELBOWS BONY PROMINENCES WITH SKIN BERRIES OR FOAM DRESSING IF EXPOSED TO FRICTION OFFLOAD BILATERAL HEELS BY PLACING PILLOWS UNDER CALVES AT ALL TIMES, UNLESS OTHERWISE CONTRAINDICATED -PRESSURE REDISTRIBUTION SURFACE THERAPY DIEGO ISOFLEX MATTRESS -NUTRITION: PLEASE FOLLOW RD RECOMMENDATIONS AND OFFER NUTRITION SUPPLEMENTS IF ORDERED. PLEASE CONTACT WOUND CARE NURSE FOR ANY QUESTION AND CHANGE OF WOUND CONDITION.
--- NOTE | 2022-09-28 15:25 | NUR ---
PT CAME FROM THE PROCEDURE OF PLACING TUBE AND THERE IS INCISION SITE ON THE UPPER ABD AND THE ACCORDION DRAINAGE IS PLACED.[id number]
[2022-09-28 16:00] VITALS: BP 155/57
[2022-09-28 20:00] VITALS: BP 115/42
--- NOTE | 2022-09-28 20:00 | NUR ---
PATIENT RESTING IN BED IN NO ACUTE DISTRESS NOTED. PATIENT ALERT ORIENTED VERBALLY RESPONSIVE. BREATHING NORMAL WITH SYMMETRICAL RISE AND FALL OF THE CHEST. CHOLECYSTOSTOMY TUBE ON THE RIGHT UPPER ABDOMEN CONNECTED TO A DRAINING BAG. IV SITE TO LEFT FOREARM SALINE LOCK. CALL LIGHT WITHIN REACH. BED WHEELS LOCKED IN LOW POSITION.
--- NOTE | 2022-09-28 20:25 | NUR ---
SCHEDULED MEDS GIVEN ORDERED.
[2022-09-29] VITALS: BP 120/57
[2022-09-29 04:00] VITALS: BP 147/63
[2022-09-29] MEDS: BLOOD GLUCOSE MONITORING 1 DEV DEV FS SCH ×4 (06:34→20:34)
--- NOTE | 2022-09-29 06:34 | NUR ---
BLOOD SUGAR WAS 173, ADMINISTERED INSULIN ORDERED PER SLIDING SCALE.
[2022-09-29] MEDS: INSULIN LISPRO SLIDING SCALE 100 UNITS/ML VIAL SUBQ PRN ×3 (06:35→20:37)
--- NOTE | 2022-09-29 06:36 | NUR ---
ASSISTED PATIENT TO THE RESTROOM AND BACK TO BED.
[2022-09-29 08:00] VITALS: BP 126/51
--- NOTE | 2022-09-29 08:00 | NUR ---
GOT REPORT FROM THE NIGHT NURSE, PT SLEEPING NO SOB. [id number]
[2022-09-29] MEDS: PANTOPRAZOLE 40 MG INJ VIAL IVP SCH (08:44)
[2022-09-29 09:17] LABS: BILIRUBIN,DIRECT 0.1 mg/dL (0.0-0.3); MAGNESIUM 1.6 mg/dL (1.8-2.4); TOTAL BILIRUBIN 0.4 mg/dL (0.0-1.0)
[2022-09-29 12:00] VITALS: BP 129/82
[2022-09-29 16:00] VITALS: BP 124/50
[2022-09-29] MEDS: MAG SULF 2000 MG/WATER PREMIX 50 ML IV PRN (18:25)
--- NOTE | 2022-09-29 19:03 | NUR ---
BS RECHECK IS 335 WILL ENDORSE TO BE CHECKED AGAIN IT IS ONLY AN HOUR SINCE GIVEN 14HUMOLOG SQ.[email or web address]
--- NOTE | 2022-09-29 19:35 | NUR ---
GAVE REPORT TO THE MANAGER R D.[id number]
--- NOTE | 2022-09-29 19:36 | NUR ---
RECEIVED BEDSIDE REPORT FROM AM NURSE. PATIENT WELL RESTED. NO SOB NOTED. NO COMPLAINTS OF PAIN. CALL LIGHT ON EASY REACH. SAFETY MEASURES IN PLACE.
--- NOTE | 2022-09-29 19:50 | NUR ---
PATIENT DAUGHTER LUIS CALLED, QUESTIONS ANSWERED.
[2022-09-29 20:00] VITALS: BP 146/48
--- NOTE | 2022-09-29 20:31 | NUR ---
ADMINISTERED SCHEDULED MEDS.
--- NOTE | 2022-09-29 22:20 | NUR ---
DR. LOFTON CALLED REGARDING PATIENT, QUESTIONS ANSWERED.
--- NOTE | 2022-09-29 22:21 | NUR ---
IV INFILTRATED. STARTED A NEW IV TO RIGHT FOREARM WITH GOOD RETURN OF BLOOD. TOLERATED WELL.
[2022-09-30] VITALS: BP 146/48
[2022-09-30 04:00] VITALS: BP 141/57
[2022-09-30 05:51] LABS: BILIRUBIN,DIRECT 0.1 mg/dL (0.0-0.3); MAGNESIUM 2.3 mg/dL (1.8-2.4)
[2022-09-30 06:22] LABS: TOTAL BILIRUBIN 0.3 mg/dL (0.0-1.0)
[2022-09-30] MEDS: INSULIN LISPRO SLIDING SCALE 100 UNITS/ML VIAL SUBQ PRN ×2 (06:32→21:23)
[2022-09-30] MEDS: BLOOD GLUCOSE MONITORING 1 DEV DEV FS SCH ×4 (06:32→21:18)
--- NOTE | 2022-09-30 07:08 | NUR ---
BEDSIDE REPORT GIVEN TO MORNING NURSE FOR CONTINUITY OF CARE. PATIENT STABLE AT THIS TIME.
[2022-09-30 08:00] VITALS: BP 132/58
[2022-09-30] MEDS: PANTOPRAZOLE 40 MG INJ VIAL IVP SCH (09:00)
[2022-09-30 12:00] VITALS: BP 148/61
[2022-09-30 12:05] LABS: HEMATOCRIT 29.7 % (36-48); HEMOGLOBIN 9.7 g/dL (12.0-16.0); MEAN CORPUSCULAR HEMOGLOBIN 28 pg (27-31); MEAN CORPUSCULAR HGB CONC 33 g/dL (33-37); MEAN CORPUSCULAR VOLUME 85.8 fL (80-94); PLATELET COUNT (AUTO) 362 K/uL (140-450); RED BLOOD CELL COUNT(AUTO) 3.46 MIL/uL (4.20-5.40); RED CELL DISTRIBUTION WIDTH 14.7 % (11.6-13.7); WHITE BLOOD COUNT (AUTO) 16.2 K/uL (4.8-10.8)
[2022-09-30 12:09] LABS: ANION GAP 10.9 (8-16); CARBON DIOXIDE 28.5 mmol/L (21-32); CREATININE 1.1 mg/dL (0.6-1.3); POTASSIUM 3.4 mmol/L (3.5-5.1)
[2022-09-30 14:20] LABS: EOSINOPHILS % (MANUAL) 1 % (0-4); LYMPHOCYTES % (MANUAL) 6 % (20-46); MONOCYTES % (MANUAL) 8 % (5-12)
[2022-09-30 16:00] VITALS: BP 132/58
[2022-09-30 18:00] VITALS: BP 148/61
--- NOTE | 2022-09-30 19:30 | NUR ---
RECEIVED PATIENT SITTING ON THE BEDSIDE CHAIR. NO S/S OF RESPIRATORY DISTRESS. BREATHING REGULAR UNLABORED. DENIES PAIN. ABLE TO COMMUNICATE WITH HER NEEDS. AMBULATORY.
--- NOTE | 2022-09-30 19:33 | NUR ---
Called the transfer center at [facility] to see if take the patient, has no idea about patient transferring to their care. Called the pulp house supervisor at [facility] and has no idea to take the patient. Called DR. Guillory and made aware and he will call the surgeon at [facility] to see if he can call the transfer center to admit.
--- NOTE | 2022-09-30 21:18 | NUR ---
CHECKED BLOOD SUGAR 253. HUMALOG INSULIN GIVEN ORDERED PER SLIDING SCALE.
[2022-10-01] VITALS: BP 136/49
--- NOTE | 2022-10-01 03:20 | NUR ---
LANETTE, INFUSION NURSE FROM [facility] CALLED SAYING THAT PATIENT WAS ACCEPTED AND HE WILL CALL AGAIN IN THE MORNING TO TALK TO SUPERVISOR MAILS.
[2022-10-01 04:00] VITALS: BP 156/45
[2022-10-01] MEDS: BLOOD GLUCOSE MONITORING 1 DEV DEV FS SCH ×4 (06:31→21:36)
[2022-10-01] MEDS: INSULIN LISPRO SLIDING SCALE 100 UNITS/ML VIAL SUBQ PRN ×4 (06:32→21:36)
--- NOTE | 2022-10-01 07:12 | NUR ---
GAVE REPORT TO DAY NURSE FOR CONTINUITY OF CARE. PATIENT STABLE AT THIS TIME.
--- NOTE | 2022-10-01 07:13 | NUR ---
RECEIVED BEDSIDE ENDORSEMENT FROM SINKER PULLER NURSE FOR CONTINUITY OF CARE. PT IS ASLEEP AWAKEN BY NAME AND TOUCH. IV SALINE LOCK RIGHT FOREARM G22 INTACT. ON ROOM AIR. WILL CONTINUE TO MONITOR.
[2022-10-01 08:00] VITALS: BP 138/55
[2022-10-01] MEDS: PANTOPRAZOLE 40 MG INJ VIAL IVP SCH (09:59)
--- NOTE | 2022-10-01 11:16 | NUR ---
Called [facility] Transfer Center and they are unaware of any transfer for this patient. They are going to contact the Double Back Operator to see if they received information on this transfer and call me back.
--- NOTE | 2022-10-01 11:26 | NUR ---
[facility] Transfer center advised the hospital warehouse supervisor 3rd shift is also unaware of any transfer for this patient, notified CNO
--- NOTE | 2022-10-01 12:41 | NUR ---
Faxed over all documents to [facility] Transfer center, spoke with Luigi who stated she received the fax but is requested a recent covid test, face sheet, and authorization numbers be faxed to them as well. Spoke with Zulema vaughan at [facility] who advised me she faxed over face sheet and covid rsults and will call them with authorization numbers.
--- NOTE | 2022-10-01 12:51 | NUR ---
LIOR NOTES: 1030: MADE A FOLLOW UP CALL TO [facility] TRANSFER CENTER AT [phone], ABLE TO SPEAK TO QUENTIN. PER QUENTIN, NO INFORMATION RECEIVED FOR THIS PATIENT. HOWEVER, SHE WILL TRANSFER THIS CM TO [facility]ANCE WHO MIGHT BE ABLE TO HELP THIS HYDRAULIC BARKER OPERATOR. PER LANCE, NO CLINICALS RECEIVED FOR THIS PATIENT. HOWEVER, SHE CAN START AND OPEN A CASE FOR THIS PATIENT. ALL INFORMATION NEEDED PROVIDED TO LANCE. LANCE REQUESTED TO SEND UPDATED CLINICALS. LANCE INFORMED THAT THIS HYDRAULIC BARKER OPERATOR IS NOT ONSITE AND NOT ABLE TO SEND ACTUAL ORDER BUT CAN SEND UPDATED CLINICALS. LANCE STATED THAT THEY WILL NEED THE ORDER TO PROCESS THE REQUEST. LANCE ALSO REQUESTED FOR COVID RESULT AND RAPID TEST IS OK. INFORMED ASTON THAT I WILL BE FAXING THE COVID TEST. [facility] CONFIRMED FAX NUMBER [phone]. COVID TEST AND FACE SHEET FAXED. 1041: DAPHNE LOGANSPIRAL GEAR GENERATOR REQUESTED TO FAX ORDER AND CLINICALS TO THE PROVIDED FAX NUMBER. 1156: RECEIVED A CALL FROM DESMOND MILLER STATING THAT [facility] CONFIRMED THAT THEY RECEIVED THE PACKET BUT REQUESTING FOR FACE SHEET, COVID TEST AND AUTH. INFORMED DESMOND MILLER THAT THIS HYDRAULIC BARKER OPERATOR WILL CALL TRANSFER CENTER AND WILL PROVIDE THE AUTH. 1204: LANCE OF [facility] TRANSFER CENTER CONFIRMED THAT THEY RECEIVED THE ORDER, CLINICALS, COVID TEST AND FACE SHEET. THIS CM PROVIDED LANCE WITH THE AUTH. PER LANCE, SHE WILL HAVE THEIR ADMITTING RUN THE ELIGIBILITY AND WILL CALL BACK IF ABLE TO ACCEPT AND BED AVAILABILITY. WILL FOLLOW UP. Addendum: 10/01/22 at 1534 by Zulema Grande PER [facility] OF [facility] TRANSFER CENTER, THEY ARE ABLE TO ACCEPT THE PATIENT PENDING TRANSFER BACK AGREEMENT. THIS HYDRAULIC BARKER OPERATOR REQUESTED LANCE TO FAX FORM TO [phone]. Addendum: 10/01/22 at [address] [facility] AFTER HOURS [phone], ABLE TO SPEAK TO LIOR JENSEN. PER CAMILA, THERE IS AN OPEN AUTH AVAILABLE IN THEIR SYSTEM HOWEVER, THERE IS NO ASSIGNED NURSE ON THIS CASE AT THIS TIME. PER CAMILA, SHE SPOKE TO ERENDIRA OF [facility] CONFIRMING THE AUTH. HOWEVER, CAMILA IS NOT ABLE TO CONFIRM DUE TO PATIENT IS NOT ASSIGNED TO HER. PER CAMILA, SHE RECOMMENDED TO [facility] TO CALL THE HUB [phone] TO OPEN THE CASE AND ASSIGNED TO A NURSE. CONTACTED THE HUB, PER VOICE PROMPT, TO LEAVE DETAILED MESSAGE AND PHONE NUMBER AND THEY WILL CALL BACK. WILL FOLLOW UP. RECEIVED TRANSFER BACK AGREEMENT FORM, SIGNED BY DR. RAY AND FAXED TO [facility] SPIRAL GEAR GENERATOR FOR PATIENT'S SIGNATURE. SPIRAL GEAR GENERATOR REQUESTED THAT ONCE SIGNED BY PATIENT TO FAX TO [facility] TRANSFER CENTER. SPOKE TO THE PATIENT OVER THE PHONE AND EXPLAINED TRANSFER BACK AGREEMENT FOR [facility]. ALL QUESTIONS AND CONCERNS ANSWERED AND PATIENT IS IN AGREEMENT. Addendum: 10/01/22 at 1704 by Zulema Grande CM PER L[facility] OF [facility] TRANSFER CENTER, STILL PENDING TRANSFER BACK AGREEMENT AND CONFIRMATION OF THE AUTH. INFORMED LANCE THAT LIOR JENSEN SPOKE TO ERENDIRA AT [facility] AND RECOMMENDED TO CALL THE HUB. INFORMED LANCE THAT THIS CM ALSO CALLED THE HUB. LANCE MADE AWARE THAT THIS CM IS LEAVING FOR THE DAY AND CASE WAS ENDORSED TO SPIRAL GEAR GENERATOR. THIS HYDRAULIC BARKER OPERATOR PROVIDED LANCE, SPIRAL GEAR GENERATOR AND UNIT'S PHONE NUMBER. CASE ENDORSED TO SPIRAL GEAR GENERATOR.
[2022-10-01 16:00] VITALS: BP 122/49
--- NOTE | 2022-10-01 19:14 | NUR ---
All documents have been faxed over including Patient Transfer and Return Agreement. I confirmed with [facility] Transfer Center that they have everything they need from us. I was advised they are waiting on admitting to verify the authorizations that we had received from the patients insurance. Endorsed to night RAE Chahal
--- NOTE | 2022-10-01 19:25 | NUR ---
RECEIVED REPORT FROM AM NURSE. PATIENT RESTING IN BED WITH DAUGHTER AT BEDSIDE. NO S/S OF RESPIRATORY DISTRESS ON ROOM AIR. NO COMPLAINTS OF PAIN. CHOLECYSTOSTOMY TUBE CONNECTED TO A DRAINAGE BAG IN THE RIGHT SIDE WITH SCANTY OUTPUT. CALL LIGHT WITHIN REACH. ATTENDED TO HER NEEDS.
[2022-10-01 20:00] VITALS: BP 128/55
--- NOTE | 2022-10-01 20:45 | NUR ---
[place] from [facility] ([phone]) called and stated that pt will be admitted in room 565 and to give RN report to [phone]
[2022-10-01 21:21] VITALS: BP 128/55
--- NOTE | 2022-10-01 23:55 | NUR ---
PATIENT WAS PICKED UP BY 2 AMTS TRANSPORTED BY [facility] TO [facility] FOR HIGHER LEVEL OF CARE. PATIENT IN STABLE CONDITION.
--- NOTE | 2022-10-02 00:15 | NUR ---
Called [place] [facility] Transfer Center [phone] to let him know that pt is on the way to [facility], and to let him know that the Charge Nurse refused to take RN report, stated that pt's insurance is not approved. [place] stated that pt is not preregistered yet, that's why pt's name is not showing on the Charge Nurse report. [place] stated to call for RN report in about 15 minutes
--- NOTE | 2022-10-02 00:35 | NUR ---
GAVE REPORT TO SIDDHARTH DEWITT IN [facility].
== END 2022-10-01 23:55 | disposition short-term general hospital (02) | DRG 871 ==
LOC: MED 02:05 → MTU 07:48
PROVIDERS: ADMIT Family Medicine; ATTEND Internal Medicine
PROC: 0F943ZX Drainage of Gallbladder, Percutaneous Approach, Diagnostic (ICD-10-PCS; principal; 2022-09-28)
DX: A41.9 Sepsis, unspecified organism (principal); E43 Unspecified severe protein-calorie malnutrition; K80.00 Calculus of gallbladder with acute cholecystitis without obstruction; N17.9 Acute kidney failure, unspecified; E87.1 Hypo-osmolality and hyponatremia; D63.8 Anemia in other chronic diseases classified elsewhere; E11.65 Type 2 diabetes mellitus with hyperglycemia; E87.6 Hypokalemia; E83.42 Hypomagnesemia; Z20.822 Contact with and (suspected) exposure to COVID-19; N30.90 Cystitis, unspecified without hematuria; E66.9 Obesity, unspecified; K57.90 Diverticulosis of intestine, part unspecified, without perforation or abscess without bleeding; Z79.82 Long term (current) use of aspirin; Z79.899 Other long term (current) drug therapy; Z79.4 Long term (current) use of insulin; Z68.29 Body mass index [BMI] 29.0-29.9, adult
CPT/HCPCS: 36415; 71045; 75989; 76705; 76770; 78445; 80048; 80053; 80076; 81003; 82570; 82948; 83605; 83690; 83735; 83880; 84300; 84484; 85025; 85049; 85610; 85730; 87040; 87081; 87635-QW; 96365; 96375; 99285; C9113; J0696; J1644; J1815; J2001; J2250; J2270; J2310; J2405; J2543; J3010; J3475; J3490; J7060; P9046; Q0092; Q9967

== ENCOUNTER 2022-12-09 13:33 | Emergency (ER) | payer MEDICARE, OTHER ==
[~2022-12-09] VITALS: Ht 157.5 cm; Wt 61.2 kg
[~2022-12-09 13:33] MED LIST changes: -FURO-572 PO; -GABA400C PO; -IBUP-2213 PO; -METF-1274 PO; -NITR50CA1 PO
[2022-12-09 14:03] VITALS: BP 107/54; PULSE 80; RESP 18; TEMP 97.5; O2SAT 98
[2022-12-09] MEDS ORDERED: ONDANSETRON 4 MG/2 ML VIAL IVP ONE (14:50)
[2022-12-09] MEDS ORDERED: NACL 0.9% 1,000 ML IV ONE ×2 (14:50→17:50)
[2022-12-09] MEDS ORDERED: MORPHINE SULFATE 4 MG/ML SYR IVP ONE (14:50)
--- NOTE | 2022-12-09 15:00 | NUR ---
PT REFUSED MEDICATION AT THIS TIME. NO PAIN. CALL LIGHT WITHIN REACH
--- NOTE | 2022-12-09 15:08 | NUR ---
X-Ray at bedside.
--- NOTE | 2022-12-09 16:00 | NUR ---
PATIENT PRESENTS TO ED WITH DAUGHTER. PT STATES NAUSEA, FEVER, FATIGUE,DIARRHEA, RUNNY NOSE AND BACK PAIN.SKIN IS PINK/WARM/DRY; AAOX4. AMBULATORY WITH WALKER; LUNGS CLEAR BL; HR EVEN AND REGULAR; NO FEVER AT THIS TIME, CP, SOB, OR COUGH AT THIS TIME; PATIENT STATES PAIN OF 0/10 AT THIS TIME; VSS; PATIENT POSITIONED FOR COMFORT; HOB ELEVATED; BEDRAILS UP X2; BED DOWN. ER MD MADE AWARE OF PT STATUS.
[2022-12-09 16:10] LABS: BASOPHILS % (AUTO) 0.1 % (0.0-2.0); EOSINOPHILS # (AUTO) 0.1 K/uL (0-0.4); EOSINOPHILS % (AUTO) 0.5 % (0.0-4.0); HEMATOCRIT 22.3 % (36-48); HEMOGLOBIN 7.2 g/dL (12.0-16.0); LYMPHOCYTES # (AUTO) 1.7 K/uL (2.5-16.5); MEAN CORPUSCULAR HEMOGLOBIN 28 pg (27-31); MEAN CORPUSCULAR HGB CONC 32 g/dL (33-37); MEAN CORPUSCULAR VOLUME 86.3 fL (80-94); MONOCYTES # (AUTO) 1.3 K/uL (0.8-1.0); MONOCYTES % (AUTO) 9.3 % (1.7-9.3); NEUTROPHILS # (AUTO) 11.3 K/uL (1.8-7.7); NEUTROPHILS % (AUTO) 78.1 % (42.2-75.2); PLATELET COUNT (AUTO) 361 K/uL (140-450); RED BLOOD CELL COUNT(AUTO) 2.58 MIL/uL (4.20-5.40); RED CELL DISTRIBUTION WIDTH 16.7 % (11.6-13.7); WHITE BLOOD COUNT (AUTO) 14.5 K/uL (4.8-10.8)
[2022-12-09 16:14] LABS: PROTHROMBIN TIME 12.9 secs (10.8-13.4)
[2022-12-09 16:15] LABS: ALBUMIN 1.5 g/dL (3.4-5.0); ANION GAP 14.3 (8-16); CARBON DIOXIDE 21.4 mmol/L (21-32); CREATININE 1.1 mg/dL (0.6-1.3); POTASSIUM 4.7 mmol/L (3.5-5.1); TOTAL BILIRUBIN 0.4 mg/dL (0.0-1.0)
[2022-12-09] MEDS ORDERED: ONDANSETRON 4 MG/2 ML VIAL ONE (17:11)
[2022-12-09] MEDS ORDERED: MORPHINE SULFATE 4 MG/ML SYR ONE (17:12)
--- NOTE | 2022-12-09 17:18 | NUR ---
PT REFUSED MEDICATION. PAIN 0/10. NO COMPLAINTS. CALL LIGHT WITHIN REACH
[2022-12-09] MEDS ORDERED: PANTOPRAZOLE 40 MG INJ VIAL IVP ONE (17:30)
--- NOTE | 2022-12-09 17:42 | NUR ---
ASSISTED DR THOMPSON TO DO RECTAL EXAM, NEGATIVE HEMEOCCULT
[2022-12-09] MEDS ORDERED: PIPERACILLIN/TAZOBACTAM 3.375 GM in DEXTROSE 5% 50 ML IV ONE (17:50)
[2022-12-09] MEDS ORDERED: PIPERACILLIN/TAZOBACTAM 3.375 GM VIAL IV ONE (18:23)
--- NOTE | 2022-12-09 19:05 | NUR ---
PT BEING TRANSFERED TO [facility] UNDER THE CARE OF . REPORT CALLED TO RENATE HAYES @[phone]. BLOOD TRANSFUSION WAS NOT INITIATED INDORSED TO RENATE.
[2022-12-09 19:11] LABS: APPEARANCE,URINE CLEAR (CLEAR); BILIRUBIN,URINE NEGATIVE (NEGATIVE); BLOOD, URINE NEGATIVE (NEGATIVE); COLOR,URINE YELLOW (YELLOW); LEUKOCYTE ESTERASE ,URINE 1+ (NEGATIVE); NITRITE, URINE NEGATIVE (NEGATIVE); UGLUCOSE NEGATIVE (NEGATIVE)
[2022-12-09 19:20] LABS: RBC,URINE 0-5 /HPF (0-5)
--- NOTE | 2022-12-09 19:26 | NUR ---
[facility] HERE FOR TRANSPORT
--- NOTE | 2022-12-09 19:42 | NUR ---
PT TRANSPORTED VIA [facility] TO [facility] FOR TRANSFER OF CARE.
--- NOTE | 2022-12-09 19:43 | NUR ---
Patient to be transferred to [facility]. Is being transferred due to SURGICAL DOCTOR RASHAD RIVERA. Receiving facility has accepting physician MD ERIKA and available space. ER physician has signed transfer form. Patient or responsible republican has agreed to transfer and signed form. Patient belongings inventoried and will be sent with patient. Copy of nursing notes, lab reports, EKG, Physicians Orders and X-rays to be sent with patient. Report called to RENATE HAYES at receiving facility. [facility] ambulance service has been called for transfer. ETA is 40 MINUTES.
[2022-12-09 19:45] VITALS: BP 148/55; PULSE 117; RESP 20; TEMP 98.1; O2SAT 96
== END 2022-12-09 19:40 | disposition short-term general hospital (02) ==
LOC: MED 13:33
DX: K75.0 Abscess of liver (principal); D64.9 Anemia, unspecified; J45.909 Unspecified asthma, uncomplicated; E11.9 Type 2 diabetes mellitus without complications; I10 Essential (primary) hypertension; Z98.890 Other specified postprocedural states; Z20.822 Contact with and (suspected) exposure to COVID-19; Z79.899 Other long term (current) drug therapy; Z79.4 Long term (current) use of insulin; Z85.05 Personal history of malignant neoplasm of liver
CPT/HCPCS: 36415; 71045; 74177; 80053; 81001; 82550; 83605; 83880; 84484; 85025; 85610; 85730; 86886; 86900; 86901; 86920; 87040; 87086; 87426; 93005; 96361; 96365; 96375; 99291; C9113; J2543; Q0092; Q9967; J2270; J2405; J7030

== ENCOUNTER 2022-12-31 10:42 | Emergency (ER) | payer OTHER ==
--- NOTE | 2022-12-31 11:06 | NUR ---
PATIENT WAS BIB GRAND DAUGHTER FOR PICC LINE NOT FLUSHING. PER [facility] PATIENT IS SUPPOSED TO GET IV ANTIBIOTIC TODAY. RN FLUSHED PICC LINE WITH NO RESISTANCE. PICC LINE FLUSHING WELL WITH GOOD BLOOD RETURN. PATIENT AND FAMILY DECIDED TO JUST GO HOME SINCE PICC LINE IS FLUSHING NOT DID NOT WANT TO GO THROUGH TRIAGE QUESTIONAIRE. PATIENT STABLE AT THIS TIME. BP= 102/50 HR=67, O2 SAT 99% ON RA. RR=18, TEMP=98.0. MADE AWARE.
== END 2022-12-31 11:06 | disposition left against medical advice (07) ==
LOC: MED 10:42
DX: M79.609 Pain in unspecified limb (principal); Z53.21 Procedure and treatment not carried out due to patient leaving prior to being seen by health care provider

== ENCOUNTER 2023-01-03 09:51 | Emergency (ER) | payer OTHER ==
--- NOTE | 2023-01-03 10:05 | NUR ---
BIB [facility] TO REPLACE PICC LINE DUE TO NOT ABLE TO FLUSH. PER [facility] IN LAW HH NURSE DID NOT COME TO THE HOUSE TO GIVE MEDICATION. PICC LINE FLUSHING WELL WITH GOOD BLOOD RETURN. DRESSING INTACT WITH NO S/SX OF INFECTION ON THE SITE. PATIENT JUST WANTS TO GO HOME SINCE PICC LINE IS WORKING WELL. NO OTHER C/O AT THIS TIME. INSTRUCTED TO COME TO ED IF NEEDED. VERBALIZED UNDERSTANDING.
== END 2023-01-03 10:05 | disposition left against medical advice (07) ==
LOC: MED 09:51
DX: Z45.2 Encounter for adjustment and management of vascular access device (principal); Z53.21 Procedure and treatment not carried out due to patient leaving prior to being seen by health care provider

== ENCOUNTER 2023-01-13 12:33 | Inpatient (IN) | payer OTHER ==
[~2023-01-13] VITALS: Ht 157.5 cm; Wt 49.9 kg
[2023-01-13] MEDS ORDERED: NACL 0.9% 2,000 ML IV ONE (12:55)
[2023-01-13 12:56] VITALS: BP 115/42; PULSE 110; RESP 21; TEMP 100.8; O2SAT 86
[2023-01-13] MEDS ORDERED: cefTRIAXone 1,000 MG VIAL ONE (13:11)
[2023-01-13 13:21] LABS: HEMATOCRIT 22.3 % (36-48); MEAN CORPUSCULAR HEMOGLOBIN 26 pg (27-31); MEAN CORPUSCULAR HGB CONC 30 g/dL (33-37); MEAN CORPUSCULAR VOLUME 85.7 fL (80-94); PLATELET COUNT (AUTO) 305 K/uL (140-450); RED BLOOD CELL COUNT(AUTO) 2.61 MIL/uL (4.20-5.40); RED CELL DISTRIBUTION WIDTH 19.7 % (11.6-13.7)
[2023-01-13 13:38] LABS: LACTIC ACID 1.4 mmol/L (0.4-2.0)
[2023-01-13 13:44] LABS: ALBUMIN 1.1 g/dL (3.4-5.0); ANION GAP 13.6 (8-16); CALCIUM 8.3 mg/dL (8.5-10.1); CARBON DIOXIDE 25.9 mmol/L (21-32); CREATININE 0.9 mg/dL (0.6-1.3); POTASSIUM 4.5 mmol/L (3.5-5.1); TOTAL BILIRUBIN 2.2 mg/dL (0.0-1.0); TOTAL PROTEIN, SERUM 6.3 g/dL (6.4-8.2)
[2023-01-13 13:45] LABS: ACETAMINOPHEN 1.7 ug/ml (10-30); ALCOHOL, BLOOD < 3 mg/dL (<10)
[2023-01-13 13:46] LABS: SALICYLATE < 2.8 mg/dL (2.8-20.0)
[2023-01-13 14:03] LABS: HEMOGLOBIN 6.8 g/dL (12.0-16.0); WHITE BLOOD COUNT (AUTO) 26.4 K/uL (4.8-10.8)
[2023-01-13 14:15] LABS: APPEARANCE,URINE CLEAR (CLEAR); BILIRUBIN,URINE 3+ (NEGATIVE); BLOOD, URINE NEGATIVE (NEGATIVE); COLOR,URINE ORANGE (YELLOW); LEUKOCYTE ESTERASE ,URINE TRACE (NEGATIVE); NITRITE, URINE POSITIVE (NEGATIVE); PH,URINE 5.5 (5.0-9.0); PROTEIN,URINE 1+ (NEGATIVE); UGLUCOSE NEGATIVE (NEGATIVE)
[2023-01-13 14:27] LABS: AMPHETAMINE, URINE NEGATIVE ng/ml (NEG <=1000); BARBITURATE, URINE NEGATIVE ng/ml (NEG <=200); BENZODIAZEPINE, URINE POSITIVE ng/mL (NEG <=200); CANNABINOID, URINE NEGATIVE ng/mL (NEG <=50); COCAINE, URINE NEGATIVE ng/mL (NEG <=300); OPIATE, URINE POSITIVE ng/mL (NEG <=2000); PHENCYCLIDINE SCREEN,URINE NEGATIVE ng/mL (NEG <=25)
[2023-01-13 14:34] LABS: CREATINE KINASE, TOTAL 71 U/L (26-192)
[2023-01-13 14:45] LABS: ICTOTEST POSITIVE (NEGATIVE)
[2023-01-13 14:46] LABS: BACTERIA,URINE FEW /HPF (None Seen); MUCUS,URINE 1+ /LPF (None Seen); SQUAMOUS EPITHELIAL CELL,UR 4-10 (MOD) /LPF (0-3 (FEW)); TRICHOMONAS,URINE None Seen /HPF (None Seen); YEAST,URINE None Seen /HPF (None Seen)
[2023-01-13 14:51] LABS: LYMPHOCYTES % (MANUAL) 6 % (20-46); MONOCYTES % (MANUAL) 7 % (5-12)
[2023-01-13 14:52] LABS: HYPOCHROMASIA 3+; PLATELET ESTIMATE ADEQUATE
[2023-01-13] MEDS ORDERED: ALBUTEROL SULFATE/IPRATROPIU 3 ML SOL IH PRN (16:00)
[2023-01-13] MEDS ORDERED: ZOLPIDEM 10 MG TAB PO PRN (16:00)
[2023-01-13] MEDS ORDERED: DOCUSATE SODIUM 100 MG GELCAP PO PRN (16:00)
[2023-01-13] MEDS ORDERED: LORazepam 2 MG/ML VIAL IVP PRN (16:00)
[2023-01-13] MEDS ORDERED: POTASSIUM CHLORIDE 10 MEQ TABER PO PRN (16:00)
[2023-01-13] MEDS ORDERED: ACETAMINOPHEN 325 MG TAB PO PRN (16:00)
[2023-01-13] MEDS ORDERED: DEXTROSE 50% 50 ML SYR IVP PRN (16:05)
[2023-01-13] MEDS: BLOOD GLUCOSE MONITORING 1 DEV DEV FS SCH ×2 (16:30→21:38)
[2023-01-13] MEDS: NACL 0.9% 1,000 ML IV SCH (17:46)
[2023-01-13] MEDS: MORPHINE SULFATE 2 MG/ML SYR IVP PRN (17:51)
[2023-01-13 17:56] LABS: INR 1.4 (0.8-1.2); PROTHROMBIN TIME 14.5 secs (10.8-13.4)
[2023-01-13] MEDS ORDERED: PIPERACILLIN/TAZOBACTAM 3.375 GM VIAL IV ONE ×2 (18:41→23:13)
[2023-01-13] MEDS: PIPERACILLIN/TAZOBACTAM 3.375 GM in DEXTROSE 5% 50 ML IV SCH ×2 (18:45→23:21)
[2023-01-13 19:12] VITALS: PULSE 99; RESP 18; O2SAT 97
[2023-01-13 20:00] VITALS: PULSE 62; RESP 18; TEMP 98.5; O2SAT 98
[2023-01-13] MEDS ORDERED: INSU100S45 SUBQ (20:54)
[2023-01-13 21:05] VITALS: BP 106/47; PULSE 98; RESP 18; TEMP 96.8; O2SAT 93
[2023-01-13] MEDS: SIMVASTATIN 20 MG TAB PO SCH (21:45)
[2023-01-14] VITALS (10 sets, daily range): BP systolic 104–156; BP diastolic 49–71; PULSE 62–102; RESP 17–18; TEMP 97.1–99.1; O2SAT 93–98
[2023-01-14] MEDS: MORPHINE SULFATE 2 MG/ML SYR IVP PRN (00:24)
[2023-01-14] MEDS ORDERED: PIPERACILLIN/TAZOBACTAM 3.375 GM VIAL IV ONE (05:22)
[2023-01-14] MEDS: PIPERACILLIN/TAZOBACTAM 3.375 GM in DEXTROSE 5% 50 ML IV SCH ×4 (05:29→23:33)
[2023-01-14] MEDS: NACL 0.9% 1,000 ML IV SCH (05:35)
[2023-01-14 06:16] LABS: BASOPHILS % (AUTO) 0.1 % (0.0-2.0); EOSINOPHILS % (AUTO) 0.1 % (0.0-4.0); HEMATOCRIT 27.1 % (36-48); HEMOGLOBIN 8.6 g/dL (12.0-16.0); LYMPHOCYTES # (AUTO) 2.4 K/uL (2.5-16.5); LYMPHOCYTES % (AUTO) 9.9 % (20.5-51.1); MEAN CORPUSCULAR HEMOGLOBIN 27 pg (27-31); MEAN CORPUSCULAR HGB CONC 32 g/dL (33-37); MEAN CORPUSCULAR VOLUME 84.8 fL (80-94); MONOCYTES # (AUTO) 1.2 K/uL (0.8-1.0); MONOCYTES % (AUTO) 4.8 % (1.7-9.3); NEUTROPHILS # (AUTO) 20.7 K/uL (1.8-7.7); NEUTROPHILS % (AUTO) 85.1 % (42.2-75.2); PLATELET COUNT (AUTO) 297 K/uL (140-450); RED BLOOD CELL COUNT(AUTO) 3.19 MIL/uL (4.20-5.40); RED CELL DISTRIBUTION WIDTH 17.6 % (11.6-13.7); WHITE BLOOD COUNT (AUTO) 24.4 K/uL (4.8-10.8)
[2023-01-14 06:24] LABS: ANION GAP 15.5 (8-16); CALCIUM 8.4 mg/dL (8.5-10.1); CARBON DIOXIDE 23.9 mmol/L (21-32); CREATININE 1.1 mg/dL (0.6-1.3); POTASSIUM 4.4 mmol/L (3.5-5.1)
[2023-01-14] MEDS: BLOOD GLUCOSE MONITORING 1 DEV DEV FS SCH ×4 (06:37→20:09)
[2023-01-14] MEDS: INSULIN LISPRO SLIDING SCALE 100 UNITS/ML VIAL SUBQ PRN ×2 (06:41→17:44)
[2023-01-14] MEDS: FUROSEMIDE 20 MG/2 ML VIAL IVP SCH (09:21)
[2023-01-14] MEDS: MAG SULF 2000 MG/WATER PREMIX 50 ML IV PRN (09:22)
[2023-01-14] MEDS ORDERED: FUROSEMIDE 100 MG/10 ML VIAL IV SCH (13:30)
[2023-01-14] MEDS: HYDROcodone/APAP 5/325 MG 1 TAB TAB PO PRN (14:49)
[2023-01-14] MEDS ORDERED: FUROSEMIDE 40 MG/4 ML VIAL IVP ONE (15:55)
[2023-01-14] MEDS: SIMVASTATIN 20 MG TAB PO SCH (20:05)
[2023-01-15] VITALS (9 sets, daily range): BP systolic 98–122; BP diastolic 42–84; PULSE 67–88; RESP 17–19; TEMP 96.6–98.5; O2SAT 94–98
[2023-01-15] MEDS: PIPERACILLIN/TAZOBACTAM 3.375 GM in DEXTROSE 5% 50 ML IV SCH ×3 (05:37→17:04)
[2023-01-15] MEDS: BLOOD GLUCOSE MONITORING 1 DEV DEV FS SCH ×4 (06:36→21:10)
[2023-01-15] MEDS: INSULIN LISPRO SLIDING SCALE 100 UNITS/ML VIAL SUBQ PRN ×3 (06:37→16:44)
[2023-01-15 06:53] LABS: BASOPHILS # (AUTO) 0.1 K/uL (0.00-0.22); BASOPHILS % (AUTO) 0.3 % (0.0-2.0); EOSINOPHILS # (AUTO) 0.1 K/uL (0-0.4); EOSINOPHILS % (AUTO) 0.3 % (0.0-4.0); HEMATOCRIT 27.9 % (36-48); HEMOGLOBIN 8.8 g/dL (12.0-16.0); LYMPHOCYTES # (AUTO) 3.2 K/uL (2.5-16.5); MEAN CORPUSCULAR HEMOGLOBIN 27 pg (27-31); MEAN CORPUSCULAR HGB CONC 32 g/dL (33-37); MEAN CORPUSCULAR VOLUME 84.6 fL (80-94); MONOCYTES # (AUTO) 1.3 K/uL (0.8-1.0); NEUTROPHILS # (AUTO) 21.3 K/uL (1.8-7.7); PLATELET COUNT (AUTO) 256 K/uL (140-450); RED CELL DISTRIBUTION WIDTH 18.1 % (11.6-13.7)
[2023-01-15 07:12] LABS: ANION GAP 15.7 (8-16); CALCIUM 8.6 mg/dL (8.5-10.1); CARBON DIOXIDE 25.8 mmol/L (21-32); CREATININE 1.3 mg/dL (0.6-1.3); POTASSIUM 3.5 mmol/L (3.5-5.1)
[2023-01-15 07:20] LABS: WHITE BLOOD COUNT (AUTO) 25.9 K/uL (4.8-10.8)
[2023-01-15 07:38] LABS: LYMPHOCYTES % (AUTO) 12.2 % (20.5-51.1); NEUTROPHILS % (AUTO) 82.2 % (42.2-75.2)
[2023-01-15] MEDS: FUROSEMIDE 20 MG/2 ML VIAL IVP SCH (09:04)
[2023-01-15] MEDS: MAG SULF 2000 MG/WATER PREMIX 50 ML IV PRN (09:08)
[2023-01-15] MEDS ORDERED: VANCOMYCIN PER PHARMACY MC PRN (11:30)
[2023-01-15] MEDS ORDERED: VANCOMYCIN 1,000 MG in DEXTROSE 5% 250 ML IV SCH (12:00)
[2023-01-15] MEDS: HYDROcodone/APAP 5/325 MG 1 TAB TAB PO PRN (12:37)
[2023-01-15] MEDS: SIMVASTATIN 20 MG TAB PO SCH ×2 (21:00→21:20)
[2023-01-16] VITALS (9 sets, daily range): BP systolic 99–125; BP diastolic 43–62; PULSE 78–145; RESP 18–19; TEMP 96.9–98.9; O2SAT 96–100
[2023-01-16] MEDS: PIPERACILLIN/TAZOBACTAM 3.375 GM in DEXTROSE 5% 50 ML IV SCH ×5 (00:54→23:03)
[2023-01-16] MEDS: BLOOD GLUCOSE MONITORING 1 DEV DEV FS SCH ×4 (06:16→20:10)
[2023-01-16] MEDS: ONDANSETRON 4 MG/2 ML VIAL IVP PRN (06:16)
[2023-01-16] MEDS: FUROSEMIDE 20 MG/2 ML VIAL IVP SCH (08:54)
[2023-01-16 09:57] LABS: BASOPHILS # (AUTO) 0.1 K/uL (0.00-0.22); BASOPHILS % (AUTO) 0.2 % (0.0-2.0); EOSINOPHILS % (AUTO) 0.1 % (0.0-4.0); HEMATOCRIT 28.1 % (36-48); HEMOGLOBIN 8.9 g/dL (12.0-16.0); LYMPHOCYTES # (AUTO) 2.3 K/uL (2.5-16.5); LYMPHOCYTES % (AUTO) 10.4 % (20.5-51.1); MEAN CORPUSCULAR HEMOGLOBIN 27 pg (27-31); MEAN CORPUSCULAR HGB CONC 32 g/dL (33-37); MEAN CORPUSCULAR VOLUME 85.2 fL (80-94); MONOCYTES # (AUTO) 1.4 K/uL (0.8-1.0); MONOCYTES % (AUTO) 6.5 % (1.7-9.3); NEUTROPHILS # (AUTO) 18.4 K/uL (1.8-7.7); NEUTROPHILS % (AUTO) 82.8 % (42.2-75.2); PLATELET COUNT (AUTO) 190 K/uL (140-450); RED CELL DISTRIBUTION WIDTH 18.6 % (11.6-13.7); WHITE BLOOD COUNT (AUTO) 22.3 K/uL (4.8-10.8)
[2023-01-16 10:09] LABS: ANION GAP 11.9 (8-16); CALCIUM 8.5 mg/dL (8.5-10.1); CARBON DIOXIDE 27.9 mmol/L (21-32); CREATININE 1.2 mg/dL (0.6-1.3)
[2023-01-16 10:13] LABS: POTASSIUM 2.8 mmol/L (3.5-5.1)
[2023-01-16] MEDS ORDERED: FLUCONAZOLE 100 MG TAB PO SCH (10:17)
[2023-01-16] MEDS ORDERED: POTASSIUM CHLORIDE 40 MEQ, LIDOCAINE 1% 25 MG in NACL 0.9% 250 ML IV SCH (11:00)
[2023-01-16] MEDS: HYDROcodone/APAP 5/325 MG 1 TAB TAB PO PRN (11:06)
[2023-01-16] MEDS: INSULIN LISPRO SLIDING SCALE 100 UNITS/ML VIAL SUBQ PRN ×3 (11:47→20:15)
[2023-01-16] MEDS: VANCOMYCIN 1,000 MG in DEXTROSE 5% 250 ML IV SCH (12:42)
[2023-01-16] MEDS: MAG SULF 2000 MG/WATER PREMIX 50 ML IV PRN (19:02)
[2023-01-16] MEDS: SIMVASTATIN 20 MG TAB PO SCH (20:30)
[2023-01-17] VITALS (7 sets, daily range): BP systolic 106–121; BP diastolic 45–61; PULSE 75–92; RESP 16–18; TEMP 96.3–97.9; O2SAT 93–100
[2023-01-17 06:20] LABS: BASOPHILS % (AUTO) 0.2 % (0.0-2.0); EOSINOPHILS % (AUTO) 0.2 % (0.0-4.0); HEMATOCRIT 25.2 % (36-48); LYMPHOCYTES # (AUTO) 2.5 K/uL (2.5-16.5); LYMPHOCYTES % (AUTO) 13.9 % (20.5-51.1); MEAN CORPUSCULAR HEMOGLOBIN 27 pg (27-31); MEAN CORPUSCULAR HGB CONC 32 g/dL (33-37); MEAN CORPUSCULAR VOLUME 84.8 fL (80-94); MONOCYTES # (AUTO) 1.1 K/uL (0.8-1.0); NEUTROPHILS # (AUTO) 14.6 K/uL (1.8-7.7); NEUTROPHILS % (AUTO) 79.7 % (42.2-75.2); PLATELET COUNT (AUTO) 128 K/uL (140-450); RED BLOOD CELL COUNT(AUTO) 2.98 MIL/uL (4.20-5.40); RED CELL DISTRIBUTION WIDTH 18.3 % (11.6-13.7); WHITE BLOOD COUNT (AUTO) 18.3 K/uL (4.8-10.8)
[2023-01-17 06:30] LABS: ANION GAP 14.2 (8-16); CALCIUM 8.5 mg/dL (8.5-10.1); CARBON DIOXIDE 27.6 mmol/L (21-32); CREATININE 1.2 mg/dL (0.6-1.3)
[2023-01-17 06:31] LABS: POTASSIUM 2.8 mmol/L (3.5-5.1)
[2023-01-17] MEDS: PIPERACILLIN/TAZOBACTAM 3.375 GM in DEXTROSE 5% 50 ML IV SCH ×4 (06:39→23:04)
[2023-01-17] MEDS ORDERED: POTASSIUM CHLORIDE 20% 40 MEQ/15 ML UDC GT PRN (06:50)
[2023-01-17] MEDS: BLOOD GLUCOSE MONITORING 1 DEV DEV FS SCH ×4 (06:54→20:21)
[2023-01-17] MEDS: INSULIN LISPRO SLIDING SCALE 100 UNITS/ML VIAL SUBQ PRN ×4 (06:57→20:45)
[2023-01-17] MEDS ORDERED: POTASSIUM CHLORIDE 20% 40 MEQ/15 ML UDC GT SCH (07:11)
[2023-01-17] MEDS ORDERED: KCL 20 MEQ IN 100 mL PREMIX 200 ML IV SCH (07:30)
[2023-01-17] MEDS: FUROSEMIDE 20 MG/2 ML VIAL IVP SCH (09:00)
[2023-01-17] MEDS ORDERED: MAG SULF 2000 MG/WATER PREMIX 50 ML IV SCH (10:55)
[2023-01-17] MEDS: VANCOMYCIN 1,000 MG in DEXTROSE 5% 250 ML IV SCH (13:29)
[2023-01-17] MEDS: SIMVASTATIN 20 MG TAB PO SCH (20:21)
[2023-01-18] MEDS: PIPERACILLIN/TAZOBACTAM 3.375 GM in DEXTROSE 5% 50 ML IV SCH ×2 (05:03→13:22)
[2023-01-18 06:20] LABS: ANION GAP 10.5 (8-16); BASOPHILS % (AUTO) 0.2 % (0.0-2.0); CALCIUM 8.8 mg/dL (8.5-10.1); CARBON DIOXIDE 29.7 mmol/L (21-32); CREATININE 1.1 mg/dL (0.6-1.3); EOSINOPHILS # (AUTO) 0.1 K/uL (0-0.4); EOSINOPHILS % (AUTO) 0.3 % (0.0-4.0); HEMATOCRIT 26.2 % (36-48); HEMOGLOBIN 8.3 g/dL (12.0-16.0); LYMPHOCYTES # (AUTO) 1.8 K/uL (2.5-16.5); LYMPHOCYTES % (AUTO) 9.6 % (20.5-51.1); MEAN CORPUSCULAR HEMOGLOBIN 27 pg (27-31); MEAN CORPUSCULAR HGB CONC 32 g/dL (33-37); MEAN CORPUSCULAR VOLUME 84.7 fL (80-94); MONOCYTES % (AUTO) 5.2 % (1.7-9.3); NEUTROPHILS # (AUTO) 15.9 K/uL (1.8-7.7); NEUTROPHILS % (AUTO) 84.7 % (42.2-75.2); PLATELET COUNT (AUTO) 105 K/uL (140-450); POTASSIUM 3.2 mmol/L (3.5-5.1); RED CELL DISTRIBUTION WIDTH 18.7 % (11.6-13.7); WHITE BLOOD COUNT (AUTO) 18.8 K/uL (4.8-10.8)
[2023-01-18 06:25] LABS: MAGNESIUM 1.9 mg/dL (1.8-2.4); PHOSPHORUS 3.4 mg/dL (2.5-4.9)
[2023-01-18] MEDS: BLOOD GLUCOSE MONITORING 1 DEV DEV FS SCH ×2 (06:30→11:30)
[2023-01-18] MEDS: INSULIN LISPRO SLIDING SCALE 100 UNITS/ML VIAL SUBQ PRN ×2 (06:31→13:22)
[2023-01-18 07:10] VITALS: O2SAT 95
[2023-01-18 08:00] VITALS: PULSE 87; RESP 18; TEMP 97.8; O2SAT 97
[2023-01-18] MEDS: ONDANSETRON 4 MG/2 ML VIAL IVP PRN (09:35)
[2023-01-18] MEDS: FUROSEMIDE 20 MG/2 ML VIAL IVP SCH (09:37)
[2023-01-18] MEDS ORDERED: NACL 0.9% 1,000 ML IV SCH (10:05)
[2023-01-18] MEDS ORDERED: ZOS3.375PM IV (10:35)
[2023-01-18] MEDS ORDERED: Z-GUARD PASTE TP PRN (12:05)
[2023-01-18] MEDS ORDERED: Z-GUARD PASTE TP SCH (13:00)
[2023-01-18] MEDS: VANCOMYCIN 1,000 MG in DEXTROSE 5% 250 ML IV SCH (14:46)
== END 2023-01-18 17:12 | DRG 871 ==
LOC: MED 12:33 → MTU 16:01
PROVIDERS: ADMIT General Practice; ATTEND General Practice
PROC: 30233N1 Transfusion of Nonautologous Red Blood Cells into Peripheral Vein, Percutaneous Approach (ICD-10-PCS; principal; 2023-01-14)
DX: A41.9 Sepsis, unspecified organism (principal); E43 Unspecified severe protein-calorie malnutrition; K75.0 Abscess of liver; N39.0 Urinary tract infection, site not specified; J90 Pleural effusion, not elsewhere classified; J98.11 Atelectasis; C22.9 Malignant neoplasm of liver, not specified as primary or secondary; D64.9 Anemia, unspecified; B37.31 Acute candidiasis of vulva and vagina; I25.10 Atherosclerotic heart disease of native coronary artery without angina pectoris; K21.9 Gastro-esophageal reflux disease without esophagitis; J45.909 Unspecified asthma, uncomplicated; I10 Essential (primary) hypertension; E11.9 Type 2 diabetes mellitus without complications; E86.0 Dehydration; I87.8 Other specified disorders of veins; E83.42 Hypomagnesemia; Z90.49 Acquired absence of other specified parts of digestive tract; Z79.899 Other long term (current) drug therapy; Z79.82 Long term (current) use of aspirin
CPT/HCPCS: 36415; 36430; 70450; 71045; 80048; 80053; 80202; 80305; 81001; 82140; 82550; 82948; 83036; 83605; 83735; 83880; 84100; 84484; 85025; 85610; 86886; 86900; 86901; 86920; 87040; 87081; 87086; 92526; 96361; 96365; 99291; G0480; G0482; J0696; J1644; J1815; J1940; J2001; J2060; J2270; J2405; J2543; J3370; J3475; J3480; J7030; J7060; P9016; Q0092